=== PATIENT | female | born 1965 | race Caucasian/White ===

== ENCOUNTER 2018-06-14 21:18 | Inpatient (IN) | payer BC, OTHER ==
[~2018-06-14] VITALS: Ht 154.9 cm; Wt 73.1 kg
[~2018-06-14 21:18] MED LIST: ASPCH81; ATOR-22 PO; CPR500 PO; CRG125 PO; FRRS300 PO; HYDC25 PO; ISOS30TA3 PO; KETAMINE HCL INJ 50 MG/ML 10 ML VIAL IV ONE; LISI-461 PO; MIDAZOLAM HCL 5 MG/ML 2ML VIAL IV ONE; PHEN-876 PO; SUCCINYLCHOLINE CHLORIDE 20 MG/ML 10 ML VIAL IV ONE; XNX25 PO
[2018-06-14] MEDS ORDERED: SODIUM CHLORIDE 0.9% 1000ML 1,000 ML IV STA (21:24)
[2018-06-14] MEDS ORDERED: RAPID SEQUENCE INDUCTION BAG ONE (21:28)
[2018-06-14] MEDS ORDERED: PROPOFOL IV EMULSION 10 MG/ML 100 ML VIAL ONE (21:37)
--- NOTE | 2018-06-14 21:38 | DIAGNOSTIC IMAGING REPORT ---
CHEST ONE VIEW PORTABLE CLINICAL HISTORY: CODE BLUE dyspnea COMPARISON STUDY: No previous studies for comparison. FINDINGS: Pulmonary edema. Moderate cardiomegaly. Diaphragms are smooth. IMPRESSION: Pulmonary edema The above report was generated using voice recognition software. It may contain grammatical, syntax or spelling errors. Electronically signed by: Binu Momin M.D. 06/14/2018 9:36 PM Dictated Date/Time: 06/14/2018 9:36 PM
[2018-06-14] MEDS ORDERED: PROPOFOL IV EMULSION 10 MG/ML 100 ML VIAL IV STA (21:42)
[2018-06-14] MEDS ORDERED: FUROSEMIDE 40 MG/4 ML VIAL IV STA (21:44)
[2018-06-14 21:50] LABS: ISTAT CREATININE 1.4 mg/dl (0.6-1.3); ISTAT IONIZED CALCIUM 1.1 mmol/l (1.12-1.32)
[2018-06-14 21:54] LABS: HEMATOCRIT 52.4 % (37-47); HEMOGLOBIN 18.2 g/dL (12.0-16.0); MEAN CELL VOLUME 98.1 fL (80-100); MEAN CORPUSCULAR HEMOGLOBIN 34.1 pg (25-34); MEAN CORPUSCULAR HGB CONC 34.7 g/dl (32-36); MEAN PLATELET VOLUME 11.6 fL (7.4-10.4); PLATELET COUNT 220 K/uL (130-400); RED CELL DISTRIBUTION WIDTH CV 13.2 % (11.5-14.5); RED CELL DISTRIBUTION WIDTH SD 46.6 fL (36.4-46.3); WHITE BLOOD COUNT 12.66 K/uL (4.8-10.8)
--- NOTE | 2018-06-14 21:58 | DIAGNOSTIC IMAGING REPORT ---
CHEST ONE VIEW PORTABLE CLINICAL HISTORY: ett tube position COMPARISON STUDY: Same date and 20 2:00 PM FINDINGS: Endotracheal tube 3.7 cm above the cecelia. Findings of mildly progressive pulmonary edema. Moderate cardiomegaly. IMPRESSION: Endotracheal tube 3.7 cm above the cecelia. Progressive pulmonary edema. The above report was generated using voice recognition software. It may contain grammatical, syntax or spelling errors. Electronically signed by: Binu Momin M.D. 06/14/2018 9:57 PM Dictated Date/Time: 06/14/2018 9:56 PM
[2018-06-14] MEDS ORDERED: MULT-506 PO (22:01)
[2018-06-14] MEDS ORDERED: ATOR-24 PO (22:01)
[2018-06-14] MEDS ORDERED: GLC/500 PO (22:01)
[2018-06-14] MEDS ORDERED: LISI20TA3 PO (22:01)
[2018-06-14] MEDS ORDERED: HYDR25TA4 PO (22:01)
[2018-06-14] MEDS ORDERED: CARV25TA2 PO (22:01)
[2018-06-14] MEDS ORDERED: ASPI81TA28 PO (22:01)
[2018-06-14 22:03] LABS: PTT PATIENT 24.4 SECONDS (21.0-31.0)
[2018-06-14 22:17] LABS: BLOOD UREA NITROGEN 17 mg/dl (7-18); CREATININE 1.78 mg/dl (0.60-1.20); GLUCOSE 242 mg/dl (70-99)
[2018-06-14 22:18] LABS: ALBUMIN 4.2 gm/dl (3.4-5.0); ALKALINE PHOSPHATASE 85 U/L (45-117); ALT/SGPT 32 U/L (12-78); AST/SGOT 23 U/L (15-37); CALCIUM 8.9 mg/dl (8.5-10.1); CARBON DIOXIDE 20 mmol/L (21-32); CKMB < 1.0 ng/ml (0.5-3.6); POTASSIUM 4.1 mmol/L (3.5-5.1); SODIUM 140 mmol/L (136-145); TOTAL PROTEIN 8.2 gm/dl (6.4-8.2)
[2018-06-14] MEDS ORDERED: MIDAZOLAM HCL 1 MG/ML 2ML VIAL ONE (22:30)
--- NOTE | 2018-06-14 22:52 | Critical Care Consultation ---
Critical Care Consultation Date of Consultation: Jun 14, 2018. Attending Physician: Morgan BIRD Reason for Consultation: Acute hypoxic respiratory failure History of Present Illness History is obtained from emergency department physician, Dr. Spring, and the patient's . Patient is a 52-year-old female who has a significant past medical history for congestive heart failure first occurring back in 2004 as well as hypertension, reported history of ovarian cancer greater than 20 years ago without reported recurrence, diabetes controlled with metformin. She has not seen a medical and scientific illustrator in several years, she keeps her medical history rather private and occasionally follows up with her primary care physician who is recently retired. Patient was complaining of shortness of breath which began approximately 2 weeks ago this was an acute worsening in the last 24 hours, the patient's reports that she was unable to catch her breath and would sit in front of the air conditioning unit, the patient's daughters report that they feel she has gained weight and is somewhat edematous. In the emergency department the patient was extremely hypertensive and dyspneic , initial ABG showed a pH of 7.1 and a elevated's PCO2, patient required emergent intubation which was performed by the emergency department. Review of prior records include a echo cardiology result from April 27, 2009: Stage I diastolic dysfunction EF of 55-60%, +1 mitral regurgitation; echocardiogram from August 21, 2005 demonstrated a EF of 60% with mild concentric left ventricular hypertrophy Past Medical/Surgical History As noted above Family History Cancer FHx: diabetes mellitus Heart disease High blood pressure Seizures Social History Smoking Status: Never Smoker (As reported by ) Alcohol Use: none Drug Use: none Marital Status: Housing Status: lives with family Allergies Coded Allergies: No Known Allergies (Verified , 06/14/18) Home Medications Scheduled Aspirin (Aspirin Ec), 81 MG PO DAILY Atorvastatin (Lipitor), 40 MG PO DAILY Carvedilol (Coreg), 1 TAB PO BID Hydrochlorothiazide (Hctz), 25 MG PO DAILY Lisinopril (Prinivil), 20 MG PO BID Metformin Hcl (Glucophage), 500 MG PO BID Multivitamin (Multivitamin), 1 TAB PO DAILY Review of Systems Unable to obtain secondary to intubation Physical Exam Date Time Temp Pulse Resp B/P (MAP) Pulse Ox O2 Delivery O2 Flow Rate FiO2 06/14/18 22:46 47 20 98/52 96 Mechanical Ventilator 60 06/14/18 22:40 61 20 105/45 97 Mechanical Ventilator 60 06/14/18 22:38 83 20 86/55 97 Mechanical Ventilator 60 06/14/18 22:23 60 06/14/18 22:19 86 06/14/18 22:17 54 20 162/100 98 Mechanical Ventilator 100 06/14/18 21:50 100 06/14/18 21:35 70 Room Air 06/14/18 21:30 91 06/14/18 21:30 110 36 228/171 89 Non-Rebreather 15.0 06/14/18 21:26 120 06/14/18 21:20 Non-Rebreather 15.0 General Appearance: WD/WN, moderate distress Head: normocephalic, atraumatic Eyes: PERRLA ENT: other (Endotracheal tube present) Neck: no tenderness, trachea midline Respiratory: rales (Diffuse bilaterally) Cardiovasular: regular rate/rhythm, ectopy noted (Frequent) Abdomen: non tender, hypoactive bowel sounds Genitourinary - Female: external genitalia normal, other (Panchal catheter present) Upper Extremities: no edema Lower Extremities: edema Edema: Bilateral LE (1+) Pulses: radial (L) (2+), femoral (R) (2+) Neuro: other (Sedated on propofol) Laboratory Results Last 24 Hours Test 06/14/18 21:36 06/14/18 21:38 06/14/18 21:58 06/14/18 22:00 Bedside Hemoglobin 18.7 g/dl Bedside Hematocrit 55 % Bedside Sodium 143 mEq/L Bedside Potassium 5.0 mEq/L Bedside Chloride 112 mEq/L Bedside Total CO2 18 mEq/l Anion Gap 20.0 mmol/L 16.0 mmol/L Bedside Blood Urea Nitrogen 21 mg/dl Bedside Creatinine 1.4 mg/dl Bedside Glucose (other) 239 mg/dl Bedside Ionized Calcium (Marycruz) 1.10 mmol/l White Blood Count 12.66 K/uL Red Blood Count 5.34 M/uL Hemoglobin 18.2 g/dL Hematocrit 52.4 % Mean Corpuscular Volume 98.1 fL Mean Corpuscular Hemoglobin 34.1 pg Mean Corpuscular Hemoglobin Concent 34.7 g/dl Platelet Count 220 K/uL Mean Platelet Volume 11.6 fL RDW Standard Deviation 46.6 fL RDW Coefficient of Variation 13.2 % Prothrombin Time 10.1 SECONDS Prothromb Time International Ratio 1.0 Activated Partial Thromboplast Time 24.4 SECONDS Partial Thromboplastin Ratio 0.9 Venous Blood pH 7.10 Venous Blood Partial Pressure CO2 75 mmHg Venous Blood Partial Pressure O2 34 mmHg Venous Blood HCO3 23 mmol/L Venous Blood Oxygen Saturation < 60.0 % Venous Blood Base Excess -9.2 mEq/L Sodium Level 140 mmol/L Potassium Level 4.1 mmol/L Chloride Level 104 mmol/L Carbon Dioxide Level 20 mmol/L Blood Urea Nitrogen 17 mg/dl Creatinine 1.78 mg/dl Estimated GFR () 37.1 Estimated GFR (Non- 32.0 BUN/Creatinine Ratio 9.3 Random Glucose 242 mg/dl Calcium Level 8.9 mg/dl Total Bilirubin 0.9 mg/dl Direct Bilirubin 0.2 mg/dl Aspartate Amino Transf (AST/SGOT) 23 U/L Alanine Aminotransferase (ALT/SGPT) 32 U/L Alkaline Phosphatase 85 U/L Total Creatine Kinase 60 U/L Creatine Kinase MB < 1.0 ng/ml Creatine Kinase MB Ratio Troponin I 0.167 ng/ml Total Protein 8.2 gm/dl Albumin 4.2 gm/dl Lactic Acid Level 5.3 mmol/L Test 06/14/18 22:28 06/14/18 22:35 06/14/18 22:41 06/14/18 22:43 Diagnostic Results EKGs reviewed: They appear to be sinus rhythm with frequent ectopy is very difficult to evaluate ST segment changes but I do not see strong evidence of ST elevation, there may be aspects of ST depression in the lateral leads no previous for comparison I have reviewed the chest x-ray report as well as independently reviewed the images: An endotracheal tube is present and significant pulmonary edema is noted Assessment & Plan Reason Critically Ill: 52-year-old female with acute hypoxic hypercarbic respiratory failure, history CHF with elevated troponins PLAN: Neuro: Sedation and analgesia -Goal RASS -1- -2 -Fentanyl 100 mcg every 2 hours as needed pain -Versed 2 mg IV every 2 hours as needed agitation anxiety -Discontinue propofol as this is a cardiac depressant Resp: Acute hypoxic and hypercarbic respiratory failure -Likely secondary to acute on chronic congestive heart failure: Systolic and diastolic -Procalcitonin negative no strong evidence to suggest pneumonia at this time Acute respiratory acidosis -Improving -AC, tidal volume 450, rate 16 (patient breathing above) PEEP 10 -Wean FiO2 as tolerated CV: Cardiomyopathy Acute on chronic systolic and diastolic heart failure Elevated troponins Elevated proBNP -Formal echo pending Abnormal EKG with frequent ectopy -Optimize electrolytes -Start heparin infusion for possible ischemic component -Aspirin -High-dose statin Fluids/Renal: Aggressive diuresis -Goal 1-2 L negative Lactic acidosis -Repeat pending -Suspect metabolic demand secondary to decompensated congestive heart failure, doubt sepsis at this time Acute kidney injury -Elevated creatinine at 1.78, last creatinine in records December 15, 2012: 1.2 ID: Urinary tract infection based off a UA -Blood cultures pending -Urine culture pending -Procalcitonin negative: Unlikely sepsis likely local infection -Sputum culture ordered -No risk factors for Pseudomonas -Continue Rocephin GI/Nutrition: N.p.o. Heme: History of ovarian cancer greater than 10 years ago without reported recurrence -Heparin infusion for possible ischemic component of cardiomyopathy Leukocytosis -Unclear significance at this time, increase immature granulocytes which could be reflective of urinary tract infection also elevated lymphocytes Polycythemia -Unclear significance at this time Endocrine: Diabetes mellitus on metformin -Check A1c -ICU hyperglycemia protocol Vascular access: Peripheral IVs Code Status: Full I have consented the patient's for central venous access, arterial line , bronchoscopy, transvenous pacemaker, blood transfusion This is a life/limb threatening event. This includes time spent evaluating patient, direct bedside care, chart review, placing orders, interpretation of diagnostic studies, discussion with consultants, patient, and/or family members regarding treatment decisions, as well as other required patient management activities. This time is exclusive of all separately billable procedures, and teaching time and separate from and in addition to any other critical care service time. This chart is reflective of interrupted service periods on June 14, 2018 from 2250 until 2325 total critical care time for June 14, 2018: 35 minutes and June 15, 2018: 0045 until 0120 total critical care time 35 minutes
[2018-06-14 23:02] LABS: BASO % 0.4 %; BASO ABS # 0.05 K/uL (0-0.2); EOS % 2.5 %; EOS ABS # 0.32 K/uL (0-0.5); IG# 0.11 K/uL (0.00-0.02); LYMPH % 39.9 %; LYMPH ABS # 5.05 K/uL (1.2-3.4); MONO % 4.3 %; MONO ABS # 0.55 K/uL (0.11-0.59); NEUT ABS # 6.58 K/uL (1.4-6.5)
[2018-06-14] MEDS ORDERED: CEFTRIAXONE SOD INJ 1 GM ADDVIAL IV STA (23:05)
[2018-06-14] MEDS ORDERED: HYDROmorphone INJ 0.5 MG/0.5 ML SYR IV PRN (23:15)
[2018-06-14] MEDS ORDERED: PROCHLORPERAZINE INJ 5 MG in SYRINGE 4 ML IV PRN (23:15)
[2018-06-14] MEDS ORDERED: GLUCOSE 10 TABS/TUBE PO PRN (23:15)
[2018-06-14] MEDS ORDERED: GLUCOSE 40% GEL 15 GM TUBE PO PRN (23:15)
[2018-06-14] MEDS ORDERED: GLUCAGON FOR INJ 1 MG VIAL SQ PRN (23:15)
[2018-06-14] MEDS ORDERED: CARBOHYDRATES FOR HYPOGLYCEMIA PO PRN (23:15)
[2018-06-14] MEDS ORDERED: ICU PROTOCOL FOR HYPERGLYCEMIA PRN (23:15)
[2018-06-14] MEDS ORDERED: DEXTROSE 50% 50 ML SYR IV PRN (23:15)
--- NOTE | 2018-06-14 23:16 | EMERGENCY ROOM VISIT NOTE ---
History Report prepared by Servando: Kalie Medina Under the Supervision of: Dr. Mikey Spring D.O. 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 She was accompanied by her who notes his has had breathing problems for the past 2 weeks. He also notes she had imaging done recently with IV contrast but they are not aware of the results. She is not currently on any blood thinners and has no history of COPD. HPI and ROS limited due to the patient's respiratory failure. 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 HPI and ROS limited due to the patient's respiratory failure. Past Medical & Surgical Medical Problems: (1) Diabetes (2) High blood pressure (3) Respiratory failure, acute Family History Cancer FHx: diabetes mellitus Heart disease High blood pressure Seizures Social History Smokeless Tobacco Use: No Alcohol Use: none Marital Status: Housing Status: lives with significant other Occupation Status: employed Current/Historical Medications Scheduled Aspirin (Aspirin Ec), 81 MG PO DAILY Atorvastatin (Lipitor), 40 MG PO DAILY Carvedilol (Coreg), 1 TAB PO BID Hydrochlorothiazide (Hctz), 25 MG PO DAILY Lisinopril (Prinivil), 20 MG PO BID Metformin Hcl (Glucophage), 500 MG PO BID Multivitamin (Multivitamin), 1 TAB PO DAILY Allergies Coded Allergies: No Known Allergies (Verified , 06/14/18) Physical Exam Vital Signs Date Time Temp Pulse Resp B/P (MAP) Pulse Ox O2 Delivery O2 Flow Rate FiO2 06/14/18 22:46 47 20 98/52 96 Mechanical Ventilator 60 06/14/18 22:40 61 20 105/45 97 Mechanical Ventilator 60 06/14/18 22:38 83 20 86/55 97 Mechanical Ventilator 60 06/14/18 22:23 60 06/14/18 22:19 86 06/14/18 22:17 54 20 162/100 98 Mechanical Ventilator 100 06/14/18 22:03 72 22 172/128 99 Mechanical Ventilator 06/14/18 21:50 100 06/14/18 21:45 77 20 169/128 95 Mechanical Ventilator 100 06/14/18 21:35 70 Room Air 06/14/18 21:30 91 06/14/18 21:30 110 36 228/171 89 Non-Rebreather 15.0 06/14/18 21:26 120 06/14/18 21:20 Non-Rebreather 15.0 Physical Exam GENERAL: Laving on her right side. On NRB. Unable to have conversation. EYE EXAM: normal conjunctiva. PERRL and EOM's grossly intact. OROPHARYNX: mucous membranes are dry NECK: supple, no nuchal rigidity, no adenopathy, non-tender LUNGS: Clear to auscultation. Normal chest wall mechanics. Diffuse rhonchi bilaterally HEART: Tachycardic, no murmurs, S1 normal and S2 normal ABDOMEN: abdomen soft, non-tender, normo-active bowel sounds, no masses, no rebound or guarding. BACK: Back is symmetrical on inspection and there is no deformity, no midline tenderness, no CVA tenderness. SKIN: no rashes and no bruising UPPER EXTREMITIES: upper extremities are grossly normal. LOWER EXTREMITIES: Faint pitting edema bilaterally. NEURO EXAM: Normal sensorium, cranial nerves II-XII grossly intact, normal speech, no gross weakness of arms, no gross weakness of legs. Medical Decision & Procedures ER Provider Diagnostic Interpretation: Radiology results as stated below per my review and the radiologist's interpretation: CHEST ONE VIEW PORTABLE CLINICAL HISTORY: CODE BLUE dyspnea COMPARISON STUDY: No previous studies for comparison. FINDINGS: Pulmonary edema. Moderate cardiomegaly. Diaphragms are smooth. IMPRESSION: Pulmonary edema The above report was generated using voice recognition software. It may contain grammatical, syntax or spelling errors. Electronically signed by: Binu Momin M.D. 06/14/2018 9:36 PM CHEST ONE VIEW PORTABLE CLINICAL HISTORY: ett tube position COMPARISON STUDY: Same date and 20 2:00 PM FINDINGS: Endotracheal tube 3.7 cm above the cecelia. Findings of mildly progressive pulmonary edema. Moderate cardiomegaly. IMPRESSION: Endotracheal tube 3.7 cm above the cecelia. Progressive pulmonary edema. The above report was generated using voice recognition software. It may contain grammatical, syntax or spelling errors. Electronically signed by: Binu Momin M.D. 06/14/2018 9:57 PM Laboratory Results 06/14/18 21:38 Red Blood Count 5.34, Mean Corpuscular Volume 98.1, Mean Corpuscular Hemoglobin 34.1, Mean Corpuscular Hemoglobin Concent 34.7, Mean Platelet Volume 11.6 06/14/18 21:38 Test 06/14/18 21:36 06/14/18 21:38 06/14/18 22:00 06/14/18 22:28 Bedside Hemoglobin 18.7 g/dl (12.0-16.0) Bedside Hematocrit 55 % (37-47) Bedside Sodium 143 mEq/L (135-144) Bedside Potassium 5.0 mEq/L (3.3-5.0) Bedside Chloride 112 mEq/L (101-112) Bedside Total CO2 18 mEq/l (24-31) Bedside Blood Urea Nitrogen 21 mg/dl (7-18) Bedside Creatinine 1.4 mg/dl (0.6-1.3) Bedside Glucose (other) 239 mg/dl (70-99) Bedside Ionized Calcium (Marycruz) 1.10 mmol/l (1.12-1.32) White Blood Count 12.66 K/uL (4.8-10.8) Red Blood Count 5.34 M/uL (4.2-5.4) Hemoglobin 18.2 g/dL (12.0-16.0) Hematocrit 52.4 % (37-47) Mean Corpuscular Volume 98.1 fL (80-100) Mean Corpuscular Hemoglobin 34.1 pg (25-34) Mean Corpuscular Hemoglobin Concent 34.7 g/dl (32-36) Platelet Count 220 K/uL (130-400) Mean Platelet Volume 11.6 fL (7.4-10.4) RDW Standard Deviation 46.6 fL (36.4-46.3) RDW Coefficient of Variation 13.2 % (11.5-14.5) Prothrombin Time 10.1 SECONDS (9.0-12.0) Prothromb Time International Ratio 1.0 (0.9-1.1) Activated Partial Thromboplast Time 24.4 SECONDS (21.0-31.0) Partial Thromboplastin Ratio 0.9 Venous Blood pH 7.10 (7.36-7.41) Venous Blood Partial Pressure CO2 75 mmHg (38.0-50.0) Venous Blood Partial Pressure O2 34 mmHg Venous Blood HCO3 23 mmol/L Venous Blood Oxygen Saturation < 60.0 % Venous Blood Base Excess -9.2 mEq/L Anion Gap 16.0 mmol/L (3-11) Estimated GFR () 37.1 Estimated GFR (Non- 32.0 BUN/Creatinine Ratio 9.3 (10-20) Calcium Level 8.9 mg/dl (8.5-10.1) Total Bilirubin 0.9 mg/dl (0.2-1) Direct Bilirubin 0.2 mg/dl (0-0.2) Aspartate Amino Transf (AST/SGOT) 23 U/L (15-37) Alanine Aminotransferase (ALT/SGPT) 32 U/L (12-78) Alkaline Phosphatase 85 U/L (45-117) Total Creatine Kinase 60 U/L (26-192) Creatine Kinase MB < 1.0 ng/ml (0.5-3.6) Creatine Kinase MB Ratio (0-3.0) Total Protein 8.2 gm/dl (6.4-8.2) Albumin 4.2 gm/dl (3.4-5.0) Urine Color YELLOW Urine Appearance CLOUDY (CLEAR) Urine pH 5.0 (4.5-7.5) Urine Specific Happy 1.017 (1.000-1.030) Urine Protein 2+ (NEG) Urine Glucose (UA) NEG (NEG) Urine Ketones NEG (NEG) Urine Occult Blood 1+ (NEG) Urine Nitrite POS (NEG) Urine Bilirubin NEG (NEG) Urine Urobilinogen NEG (NEG) Urine Leukocyte Esterase SMALL (NEG) Test 06/14/18 22:35 06/14/18 22:41 06/14/18 22:43 Laboratory results per my review. Medications Administered Medications (Trade) Dose Ordered Sig/Gama Route Start Time Stop Time Status Last Admin Dose Admin Miscellaneous (Rapid Sequence Induction Bag) 1 ea STK-MED ONCE N/A 06/14/18 21:28 06/14/18 21:29 DC 06/14/18 21:28 1 EA Propofol (Diprivan Iv Emulsion 100ml Vial) 1 dose UD STAT IV 06/14/18 21:42 06/14/18 21:43 DC 06/14/18 22:06 1 DOSE Furosemide (Lasix Inj) 40 mg NOW STAT IV 06/14/18 21:44 06/14/18 21:45 DC 06/14/18 22:09 40 MG Midazolam HCl (Versed Inj) 2 mg STK-MED ONCE .ROUTE 06/14/18 22:30 06/14/18 22:31 DC 06/14/18 22:35 2 MG Procedure Endotracheal Intubation Indication Respiratory Failure. The patient was on 100% oxygen via NRB prior to the procedure. Suction, airway equipment, RSI drugs, respiratory equipment, and appropriate personnel were prepared prior to the initiation of the procedure. A time out was taken. Induction was performed with ketamine succ. After observing the clinical benefit of the medications, the airway was easily visualized utilizing a 3 GlideScope. A 7.5 size ETT tube was placed atraumatically to 22 cm using standard technique. The cuff inflated without signs of malfunction. There were bilateral breath sounds, positive colormetric change, no gastric sounds, a good capnography waveform, and post procedure pulse oximetry was 91%. Post intubation sedation and paralysis was administered using propofol. There were no complications. ECG Per My Interpretation Indication: SOB/dyspnea Rate (beats per minute): 107 Rhythm: sinus tachycardia (with bigeminy) Findings: LBBB, other (poor baseline) Change: Repeat EKG done at 2151 shows sinus rhythm in bigeminy, rate of 81, flipped T- Waves in the high lateral with ST depressions in the septal, anterior, and lateral, LBBB. Compared to EKG from 08/18/2005, all the changes are new. ED Course ED COURSE: Vital signs were reviewed and showed hypertensive, hypoxic, tachypneic. The patients medical record was reviewed The above diagnostic studies were performed and reviewed. ED treatments and interventions as stated above. 2121: The patient was evaluated in room B1. A complete history and physical examination was performed. 2127: Ordered Rapid Sequence Induction Bag 1 EA 2136: Ordered Propofol 1 dose IV 2143: Ordered Lasix Inj 40 mg IV 2199: Dr. Jeong, [facility] Hospitalist, was unable to pull up any recent echoes with the exception of 2008. Normal mitral valve, normal aortic valve. Systolic EF was 55%. 4: I reviewed the patient's case with Dr. Ahumada, Cardiology. 2226: I discussed the patient's case with Dr. Ga Woodward, Lecturer In Computer Science. 2229: I reviewed the patient's case with Dr. Reji Jeong, [facility] Hospitalist. He will evaluate the patient for further management. 2229: Ordered Midazolam HCl 2 mg IV 5: Upon reevaluation, the patient is still intubated. I discussed my findings with the patient's . He understands and agrees with the treatment plan. Based on the patients age, coexisting illnesses, exam and lab findings the decision to treat as an inpatient was made. The patient will be evaluated for further management. Medical Decision Differential diagnoses includes but is not limited to pneumonia, bronchitis, COPD/Asthma exacerbation, pneumothorax, pulmonary embolism, congestive heart failure, acute coronary syndrome. Patient is a 52-year-old female who presents to ER for severe shortness of breath. Patient was initially placed in A4 as it was the closest room and was placed on nonrebreather. She was unable to talk as she was so dyspneic. Pulse ox was in the 70s. On the nonrebreather she moved up to the low 80s. We immediately moved her to the trauma bay and placed on BiPAP. She still had mottling and was extremely hypertensive and dyspneic. Chest x-ray showed bilateral pulmonary edema. We elected to intubate her. CBC shows a mild leukocytosis. Hemoglobin is elevated at 18. Creatinine is 1.78. Troponins elevated at 0.167. Lactic acid is elevated as well at 5.3. ABG was initially obtained and showed a pH of 7.1. CO2 is elevated at 75. UA shows nitrates and leukocytes and consequently I did order IV Rocephin. INR was normal. I discussed the case with cardiology as the patient's notes that she had an echo performed this past Friday. Cardiology and the hospitalist were unable to obtain these results. EKG did show diffuse ST depressions with flipped T waves in the septal anterior and lateral leads. I do favor this is secondary to CHF which is also causing her HTN and EKG changes. She has a history of cardiomyopathy with a previous EF of 20% in 2004 per records. Last echo in 2008 showed an EF of 55% with mild LV she is diastolic dysfunction and mild mitral regurg. Unable to find any recent information. Patient per family appears to be noncompliant. Both dentist and hospitalist at bedside admitted the patient to the ICU. Propofol drip was managed at bedside and titrated and patient was given intermittent doses of Versed initially for agitation. Medication Reconcilliation Current Medication List: was personally reviewed by me Blood Pressure Screening Patient's blood pressure: Elevated blood pressure Hypertensive, hypoxic, tachypneic. Consults Time Called: 2204 Consulting Physician: Dr. Ahumada, Cardiology Returned Call: [phone] I reviewed the patient's case with Dr. Ahumada, Cardiology. Additional Consults: Time Called: 2219 Consulted Physician: Dr. Ga Woodward, Lecturer In Computer Science Returned Call: [phone] Additional Comments: I discussed the patient's case with Dr. Ga Woodward, Lecturer In Computer Science. Time Called: 2228 Consulted Physician: Dr. Reji Jeong, [facility] Hospitalist Returned Call: 2236 Additional Comments: I reviewed the patient's case with Dr. Reji Jeong, [facility] Hospitalist. He will evaluate the patient for further management. Impression Primary Impression: Respiratory failure Additional Impressions: CHF (congestive heart failure) Pulmonary edema Critical Care I have personally spent 75 minutes of critical care time in the direct management of this patient. This includes bedside care, interpretation of diagnostic studies, and testing, discussion with consultants, patient, and family members, and other required patient management activities. This 75 minutes is in excess of all separately billable procedures. Scribe Attestation The scribe's documentation has been prepared under my direction and personally reviewed by me in its entirety. I confirm that the note above accurately reflects all work, treatment, procedures, and medical decision making performed by me. Departure Information Dispostion Being Evaluated By Hospitalist (Dr. Reji Jeong, [facility] Hospitalist) Referrals Edmar Greene III, M.D. (PCP) Patient Instructions My [facility] Problem Qualifiers Primary Impression: Respiratory failure Chronicity: acute Respiratory failure complication: hypoxia and hypercapnia Qualified Codes: J96.01 - Acute respiratory failure with hypoxia; J96.02 - Acute respiratory failure with hypercapnia Additional Impressions: CHF (congestive heart failure) Heart failure type: unspecified Heart failure chronicity: acute Qualified Codes: I50.9 - Heart failure, unspecified Pulmonary edema Chronicity: acute Qualified Codes: J81.0 - Acute pulmonary edema
[2018-06-14] MEDS ORDERED: PROPOFOL IV EMULSION 10 MG/ML 100 ML VIAL IV SCH (23:30)
[2018-06-14] MEDS ORDERED: CEFEPIME CONSULT ACTIVE PRN (23:45)
[2018-06-15] VITALS (42 sets, daily range): BP systolic 107–199; BP diastolic 54–124; PULSE 35–94; TEMP 36.4–37; O2SAT 91–99; Ht 154.9 cm; Wt 73.1 kg
[2018-06-15] MEDS ORDERED: IPRATROPIUM BROMIDE HFA INHALER INH ONE
[2018-06-15] MEDS ORDERED: HEPARIN SOD 5000 UNIT/0.5 ML CARP SQ SCH
[2018-06-15] MEDS ORDERED: ALBUTEROL HFA 8 GM INHALER INH ONE
[2018-06-15] MEDS ORDERED: INSULIN GLARGINE SOLOSTAR 100 UNITS/ML 3 ML PEN SC ONE
[2018-06-15] MEDS ORDERED: INSULIN ASPART 100 UNITS/ML 3 ML PEN SC ONE
[2018-06-15] MEDS ORDERED: CEFEPIME IV 2,000 MG in SYRINGE 7.5 ML IV ONE (00:15)
--- NOTE | 2018-06-15 00:45 | Procedure Note ---
Procedure Note Date of Service Jun 14, 2018. Procedure Note Procedure: Limited Transthoracic Echocardiogram Indication: History cardiomyopathy, acute hypoxic respiratory failure, elevated troponins, frequent ventricular ectopy Date: June 14, 2018 Attending: Marco A Woodward DO Organs Examined: Heart Pericardial fluid: Absent Right ventricle size: Normal LV Contractility: Poor, likely wall motion abnormalities, ventricular size enlarged RV Contractility: Normal Mechanically ventilated breaths: Yes Hemodynamic Status: Blood pressure 140/90 heart rate 90 Impression: Findings suggestive of reduced ejection fraction with probable wall motion abnormalities Plan: [place] heparin for possible ischemic component Images obtained are saved for permanent record Critical Care Medicine Point of Care Bedside Ultrasound Procedure: Limited Bedside Renal Ultrasound Procedure Date: June 14, 2018 Indication: Acute kidney injury Attending: Marco A Woodward DO Organs Examined: kidneys, ureter, bladder. Right Kidney Kidney present: Yes Both Poles visualized: Yes Hydronephrosis: No Hepatorenal space fluid visualized: Negative Concern for Mass/Cyst: Approximately 1 cm cyst in upper pole of right kidney Left Kidney Kidney present: Yes Both Poles visualized: Yes Hydronephrosis: Negative Splenorenal space fluid visualized: Negative Concern for Mass/Cyst: No Bladder Panchal present: Yes Fluid in Bladder present: Absent Fluid in rectovesicle recesss: Absent Concern for Mass: Negative Ureteral Jets: Not visualized Impression: Probable right kidney cyst, no evidence of hydronephrosis bladder is decompressed secondary to Panchal catheter Images obtained are saved for permanent record Critical Care Medicine Point of Care Bedside Ultrasound Procedure: Limited Bedside Lung Ultrasound Procedure Date: June 14, 2018 Indication: Acute hypoxic respiratory failure Attending: Marco A Woodward DO Organs Examined: Lung BLUE point (upper), PLAPS point (posterior) A lines visualized: Present, Hemithorax: Right anterior B lines visualized: Present, Hemithorax: Bilaterally Lung Sliding: Present, Hemithorax: Bilaterally Tissue-like Sign: Absent, Hemithorax: Bilateral Shred Sign: Absent, Hemithorax: Bilateral Quad Sign: Present, Hemithorax: Right Type of effusions: Small simple pleural effusion, Hemithorax: Right hemithorax Interpleural distance: Not applicable Impression: Bilateral type B profile consistent with pulmonary edema and volume overload. Small right-sided pleural effusion Plan: Aggressive diuresis Images obtained are saved for permanent record Critical Care Medicine Point of Care Bedside Ultrasound Procedure: Limited Bedside Venous Duplex Procedure Date: June 14, 2018 Indication: Acute hypoxic respiratory failure, blue protocol, history of ovarian cancer Attending: Marco A Woodward DO Organs Examined: Femoral vein, tibial vein Right femoral vein compressible: Yes Right tibial vein compressible: Yes Thrombus present: Absent Left femoral vein compressible: Yes Left tibial vein compressible: Yes Thrombus present: Absent Impression: Negative limited two-point compression test for deep vein thrombus Images obtained are saved for permanent record
[2018-06-15] MEDS ORDERED: HEPARIN IV LOW DOSE NO BOLUS SCH (01:15)
[2018-06-15] MEDS ORDERED: THIAMINE HCL INJ 200 MG in SODIUM CHLORIDE 0.9% 50ML 50 ML IV STA (01:25)
[2018-06-15] MEDS ORDERED: MIDAZOLAM HCL 5 MG/ML 1 ML VIAL IV PRN (01:30)
[2018-06-15] MEDS ORDERED: MIDAZOLAM HCL 1 MG/ML 2ML VIAL IV STA (01:32)
--- NOTE | 2018-06-15 01:45 | HISTORY & PHYSICAL EXAMINATION ---
DATE OF ADMISSION: 06/14/2018 PRIMARY CARE DOCTOR: Dr. Greene. CHIEF COMPLAINT: Shortness of breath as per family. HISTORY OF PRESENT ILLNESS: History obtained from family, records. Unable to obtain history from patient secondary to intubated state. Medical history significant for hypertension, hyperlipidemia, history of dilated cardiomyopathy as per records, DM 2 on oral meds. Recent confinement in 2004 for chest pain. As per family, 2 weeks history of patient having cough symptoms, increasing shortness of breath. Daughter thinks it's from "fluids." Patient's daughter thinks the patient is retaining fluid. Blood pressure at home all over the place as per . Patient adjusts medication by self as per . No chest pain complaints. Had followup with PCP about 2 weeks ago. No concerns as per outpatient note. Follow up in 6 months. Patient brought by family to the ER because of worsening shortness of breath. Subsequently intubated for respiratory distress/failure. MEDICAL HISTORY: As above. As per outpatient records Recent 2D echo on file (2008), EF 55% to 60%, borderline LVH, diastolic dysfunction, mild MR. Last [facility] [place] [facility] [place] was [place]. As per note, Known of dilated cardiomyopathy attributed to uncontrolled blood pressure. Patient reluctant about recommended diagnostic cardiac catheterization to rule out CAD as etio of cardiomyopathy. OPERATIONS: She has had section, dental surgery. HOME MEDICATIONS: Include aspirin, Coreg, lisinopril, Glucophage, Lipitor, multivitamins. ALLERGIES: No known drug allergies. FAMILY HISTORY: Heart disease. 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 REVIEW OF SYSTEMS: Could not be obtained. PHYSICAL EXAMINATION: VITAL SIGNS: Blood pressure was noted to be 228/171, later 162/98; pulse rate 91; RR 36, later 20; temperature to be obtained. O2 sats 89 on 100% nonrebreather later 97% on 60% FIO2. GENERAL: Noted to be sedated and intubated. SKIN: Normal color, warm. HEENT: [place] palpebral conjunctivae, no ptosis, dry mucosa. NECK: Short neck, supple. CHEST: Bilateral expiratory wheezes, crackles noted. HEART: Regular rate and rhythm, systolic murmur. ABDOMEN: Some distention, nontender. EXTREMITIES: ivana edema, no tenderness. No other gross deformities. NEUROLOGIC: Sedated, pupills ERTL, no facial symmetry. LABORATORY DATA: Hemoglobin was noted to be 18.2, hematocrit 50.4, white cell count was noted to be 2.66, platelets 220. Sodium noted to be 140, potassium 4.1, chloride 104, CO2 of 20, BUN 70, creatinine 1.78, glucose 242. Venous blood gas, pH 7.10, pCO2 of 75. Troponin noted to be 0.167. Lactic acid 5.3. Chest x-ray showed pulmonary edema, cardiomegaly. EKG as per my interpretation, rate 80, NSR. LAD, LAFB, LBBB UA, WBC est, nitrite positive ASSESSMENT: 1. Acute hypoxemic failure secondary to decompensated heart failure possibly from uncontrolled blood pressure. History of cardiomyopathy attributed to uncontrolled hypertension as per outpatient records. Recent EF of 55% to 60% (outpatient TTE April 2009) No recent outpatient Cardio followup. 2. Respiratory acidosis secondary to above 3. acute renal failure secondary to illness. 4. DM2, on oral meds BSG currently elevated unknown baseline control. No recent hemoglobin A1c. 5. possible urinary tract infection, possible sepsis. PLAN: ICU vent management. Follow-up ABG Diuretic Rx. Strict IOs, daily weights. TTE, Cardiology consult RE CHF Monitor renal function with diuretic Rx. Hold lisinopril until creatinine at baseline. Follow urine cultures, IV Cefepime for now Basal insulin, ISS BG goal 140-180. May need IV insulin if uncontrolled. DVT prophylaxis, Heparin subQ. Full code. Total critical care time was 50 minutes. MTDD
[2018-06-15] MEDS ORDERED: HEPARIN 25,000 UNIT/500ML D5W 500 ML IV SCH (02:00)
[2018-06-15] MEDS: FENTANYL CITRATE INJ 50 MCG/1 ML 2 ML VIAL IV PRN ×2 (02:43→08:29)
[2018-06-15] MEDS: IPRATROPIUM BROMIDE HFA INHALER INH SCH ×2 (03:00→07:28)
[2018-06-15] MEDS: ALBUTEROL HFA 8 GM INHALER INH SCH ×2 (03:00→07:28)
[2018-06-15] MEDS ORDERED: NURSING VERBAL MED ORDER ONE ×3 (04:00→04:15)
[2018-06-15] MEDS ORDERED: METOPROLOL TARTRATE 1 MG/ML VIAL IV STA (04:01)
[2018-06-15] MEDS ORDERED: METOPROLOL TARTRATE 1 MG/ML VIAL IV PRN (04:15)
[2018-06-15] MEDS ORDERED: MIDAZOLAM BOLUS FROM BAG IV ONE (04:15)
[2018-06-15] MEDS ORDERED: MIDAZOLAM 125MG/250ML D5W 250 ML IV PRN (04:15)
[2018-06-15 04:31] LABS: BASO % 0.1 %; BASO ABS # 0.01 K/uL (0-0.2); EOS % 0.1 %; EOS ABS # 0.01 K/uL (0-0.5); HEMATOCRIT 44.9 % (37-47); IG# 0.07 K/uL (0.00-0.02); LYMPH % 8.7 %; LYMPH ABS # 1.04 K/uL (1.2-3.4); MEAN CELL VOLUME 95.1 fL (80-100); MEAN CORPUSCULAR HEMOGLOBIN 31.8 pg (25-34); MEAN CORPUSCULAR HGB CONC 33.4 g/dl (32-36); MEAN PLATELET VOLUME 11.3 fL (7.4-10.4); MONO % 4.2 %; MONO ABS # 0.51 K/uL (0.11-0.59); NEUT % 86.3 %; NEUT ABS # 10.38 K/uL (1.4-6.5); PLATELET COUNT 194 K/uL (130-400); RED CELL DISTRIBUTION WIDTH SD 44.4 fL (36.4-46.3); WHITE BLOOD COUNT 12.02 K/uL (4.8-10.8)
[2018-06-15 04:58] LABS: CALCIUM 8.2 mg/dl (8.5-10.1); CREATININE 1.4 mg/dl (0.60-1.20); POTASSIUM 3.8 mmol/L (3.5-5.1)
[2018-06-15 05:58] LABS: HEMOGLOBIN A1C 5.5 % (4.5-5.6)
[2018-06-15] MEDS ORDERED: PNEUMOCOCCAL POLYSACCHARIDES 25 MCG/0.5 ML VIAL/SYR IM. ONE (06:00)
[2018-06-15] MEDS: INSULIN ASPART 100 UNITS/ML 3 ML PEN SC SCH ×4 (06:00→21:00)
[2018-06-15] MEDS ORDERED: PNEUMOCOCCAL ADMINISTRATION CHARGE ONE (06:00)
[2018-06-15] MEDS: METOPROLOL TARTRATE 1 MG/ML VIAL IV. SCH ×2 (06:41→10:54)
[2018-06-15] MEDS ORDERED: PERFLUTREN LIPID MICROSPHERE (DEFINITY) IV ONE (08:00)
[2018-06-15] MEDS ORDERED: HEPARIN SOD (PORCINE) 1000 UNIT/ML 10 ML VIAL ONE (08:30)
[2018-06-15] MEDS ORDERED: MIDAZOLAM HCL 1 MG/ML 2ML VIAL ONE (08:30)
[2018-06-15] MEDS ORDERED: FENTANYL CITRATE INJ 50 MCG/1 ML 2 ML VIAL ONE (08:30)
[2018-06-15] MEDS ORDERED: NITROGLYCERIN/D5W 100MCG/ML 20ML SYR ONE (08:30)
[2018-06-15] MEDS ORDERED: NiCARDipine HCL INJ 2.5 MG/ML 10 ML AMP ONE (08:30)
--- NOTE | 2018-06-15 08:47 | DIAGNOSTIC IMAGING REPORT ---
CHEST ONE VIEW PORTABLE HISTORY: Heart alert, intubated COMPARISON: Chest 518. FINDINGS: The patient is slightly rotated on this study. No pneumothorax. Nasogastric tube terminates in the expected location of the stomach. The endotracheal tube terminates 2.9 cm from the cecelia. The heart remains mildly enlarged. Mild pulmonary basilar congestion has improved. Small bilateral pleural effusions and left basilar densities have progressed. IMPRESSION: 1. Satisfactory support line placement. 2. Significant improvement in the pulmonary edema. 3. Small bilateral pleural effusions and left basilar densities have progressed. Electronically signed by: Tucker Oneill M.D. 06/15/2018 8:46 AM Dictated Date/Time: 06/15/2018 8:45 AM
[2018-06-15 08:48] LABS: PTT PATIENT 33.6 SECONDS (21.0-31.0)
[2018-06-15] MEDS ORDERED: FUROSEMIDE INJ 60 MG in SYRINGE 0 ML IV SCH (09:00)
[2018-06-15] MEDS ORDERED: ASPIRIN 81 MG CHEW NG SCH (09:00)
[2018-06-15 09:53] LABS: HEP C IGG 13 YRS+OLDER_RFLX NEG (NEG)
[2018-06-15] MEDS ORDERED: MoRPHine SULFATE 2 MG/ML CARP IV PRN (10:00)
[2018-06-15] MEDS ORDERED: ATROPINE SULFATE 0.1 MG/ML 5ML SYR IV PRN (10:00)
[2018-06-15] MEDS ORDERED: NITROGLYCERIN 0.4 MG SL PER TAB CHARGE SL PRN (10:00)
[2018-06-15] MEDS ORDERED: SODIUM CHLORIDE 0.45% 1000ML 1,000 ML IV SCH (10:00)
[2018-06-15] MEDS ORDERED: CLOPIDOGREL BISULFATE 300 MG TAB PO STA (10:15)
--- NOTE | 2018-06-15 10:25 | CARDIAC CATH REPORT ---
REPORT OF CATHETERIZATION AND PERCUTANEOUS CORONARY INTERVENTION INDICATION: Elevated troponin, acute onset congestive heart failure by chest x-ray in a 52-year-old female, known history of hypertension, diabetes, hypercholesterolemia. PROCEDURES PERFORMED: Left heart catheterization, coronary cineangiography, PCI with drug-eluting stent x1, mid left anterior descending artery, radiological interpretation and supervision. 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 After local infiltration with 2% lidocaine, after failing access from the right groin, a 6-[place] sheath was placed in the left femoral vein. Sheath was aspirated and flushed. A 6-[place] JL4 guiding catheter was advanced over wire under fluoroscopic guidance to the central circulation where it was aspirated and flushed. After confirmation of adequate waveform, it was advanced into the left main and cineangiograms of left coronary artery obtained and viewed. Catheters were removed from the body over the wire, sheath was aspirated and flushed. A 6-[place] JR4 guide was advanced over wire under fluoroscopic guidance to the central circulation where it was aspirated and flushed. After confirmation of adequate waveforms, it was advanced into the right coronary artery and cineangiograms of the right groin obtained and reviewed. Catheters were removed from the body over the wire, sheath was aspirated and flushed. The reprepped 6-[place] JL4 guiding catheter was advanced over wire under fluoroscopic guidance to the central circulation where it was aspirated and flushed. After confirmation of adequate waveforms, it was advanced into the left main. A 0.014-inch private pilot wire was advanced through the guiding catheter across the area of stenosis to the apical LAD. A 2.5 Xience 8 stent was positioned in the mid LAD and inflated with maximum pressure of less than a minute. Balloon was withdrawn. Final cineangiograms were obtained with the wire removed from the coronary artery. Guiding catheter was removed from the left main under fluoroscopic guidance, removed from the body over wire and the sheath was aspirated and flushed. The right coronary catheter was used to cross the aortic valve in retrograde fashion. Left ventricular end diastolic pressure was measured. The catheter removed from the left ventricle to the aorta under continuous pressure monitoring. COMPLICATIONS: None. FINDINGS: Left main is normal. Left anterior descending artery is moderate in caliber with a focal mid 80% stenosis between 2 septal perforators. First diagonal branch is free of significant disease. Left circumflex, circumflex marginal and posterolateral branches are free of significant disease. The right coronary artery, the posterior descending artery, the posterior AV extension of the right coronary and posterolateral branches arising from it are all free of significant disease. Left ventricular end diastolic pressure is normal. No significant aortic valve gradient was demonstrated. Final cineangiograms demonstrate no residual stenosis, normal cut resection, COREY grade 3 flow in the LAD. IMPRESSION: Successful angioplasty, drug-eluting stent placement. RECOMMENDATIONS: Dual antiplatelet therapy per DAPT guidelines.
[2018-06-15] MEDS: FUROSEMIDE INJ 60 MG in SYRINGE 0 ML IV SCH ×2 (10:27→21:01)
[2018-06-15] MEDS: MULTIVITAMIN TAB NG SCH (10:28)
[2018-06-15] MEDS: ATORVASTATIN 40 MG TAB NG SCH (10:28)
[2018-06-15] MEDS: THIAMINE HCL INJ 200 MG in SODIUM CHLORIDE 0.9% 50ML 50 ML IV SCH (10:31)
[2018-06-15] MEDS ORDERED: METOPROLOL TARTRATE 1 MG/ML VIAL ONE (10:38)
[2018-06-15 10:55] LABS: CHOLESTEROL 221 mg/dl (0-200); LDL CHOLESTEROL (DIRECT) 166 mg/dl
--- NOTE | 2018-06-15 10:55 | ECHOCARDIOGRAM REPORT ---
*NOTICE TO RECEIVING [employer] This information is strictly Confidential and protected under [place] law. [place] law prohibits you from making any further disclosure of this information unless further disclosure is expressly permitted by the written consent of the person to whom it pertains or is authorized by law. A general authorization for the release of medical or other information is not sufficient for this purpose. Hospital accepts no responsibility if the information is made available to any other person, INCLUDING THE PATIENT. Interpretation Summary * Name: VERNA ISMS Study Date: 06/15/2018 06:56 AM BP: 61/191 mmHg * Patient Location: E103 HR: 70 * : 1965 (M/d/yyyy) Gender: Female Height: 61 in * Age: 52 yrs Ethnicity: CA Weight: 191 lb * Ordering Physician: Maxwell Jeong * Referring Physician: Self, Referred * Performed By: Serenity Webster RCS * * Reason For Study: CHF * BSA: 1.9 m2 * The study was technically limited. * There is no comparison study available. * -- Conclusions -- * Left ventricular systolic function is severely reduced. * Ejection Fraction = 25-30%. * There is moderate concentric left ventricular hypertrophy. * The septum is severely hypokinetic to akinetic with disynergistic wall motion. * The inferior wall is severely hypokinetic. * The remaining left ventricular myocardial wall segments are moderate to severely hypokinetic. * There is mild to moderate mitral regurgitation. Procedure Details * A complete two-dimensional transthoracic echocardiogram was performed (2D, M-mode, Doppler and color flow Doppler). * There were technical limitations due to patient'ssupine positioning while on mechanical ventilation * A contrast injection of Definity was performed to improve assessment of LV function. * A contrast injection of Definity was performed to improve assessment for apical thrombus. * Contrast was injected into an intravenous site in the right arm. * One vial of Definity ultrasound contrast was diluted in normal saline to a total volume of 10 ml. A total of '1' ml of solution was administered during imaging. * Lot # [id number] of Definity utilized for procedure. * Expiration date . * The attending nurse who injected the contrast agent was B. Clementina, RN. Left Ventricle * There is no thrombus. * There is moderate concentric left ventricular hypertrophy. * Ejection Fraction = 25-30%. * Left ventricular systolic function is severely reduced. * The septum is severely hypokinetic to akinetic with disynergistic wall motion. The inferior wall is severely hypokinetic. The remaining left ventricular myocardial wall segments are moderate to severely hypokinetic. Right Ventricle * The right ventricular cavity size is normal (basal dimension <4.2 cm in right ventricular apical 4-chamber view). * The right ventricular systolic function is normal. Atria * The left atrium is mildly dilated. * Right atrial size is normal. Mitral Valve * The mitral valve anatomy is normal. * There is no mitral valve stenosis. * There is mild to moderate mitral regurgitation. Tricuspid Valve * The tricuspid valve is not well visualized. * There is no tricuspid stenosis. * Significant tricuspid regurgitation is absent. Aortic Valve * The aortic valve is not well visualized. * No hemodynamically significant valvular aortic stenosis. * No aortic regurgitation is present. Pulmonic Valve * The pulmonic valve is not well visualized. Great Vessels * The aortic root and proximal ascending aorta are normal sized. Pericardium/Pleural * Small loculated anterior pericardial effusion. * There are no echocardiographic indications of cardiac tamponade. * Moderate size left pleural effusion. Left Ventricular Diastolic Function * Diastolic dysfunction, Grade II (pseudonormalization pattern). MMode 2D Measurements and Calculations IVSd 1.5 cm IVSs 1.6 cm LVIDd 4.5 cm LVIDs 4.4 cm LVPWd 1.5 cm LVPWs 1.6 cm IVS/LVPW 0.98 FS 3.3 % EDV(Teich) 94.5 ml ESV(Teich) 87.4 ml EF(Teich) 7.5 % EDV(cubed) 93.7 ml ESV(cubed) 84.8 ml EF(cubed) 9.5 % % IVS thick 9.5 % % LVPW thick 6.0 % LV mass(C)d 285.8 grams LV mass(C)dI 154.3 grams/m\S\2 LV mass(C)s 305.8 grams LV mass(C)sI 165.1 grams/m\S\2 SV(Teich) 7.1 ml SI(Teich) 3.8 ml/m\S\2 SV(cubed) 8.9 ml SI(cubed) 4.8 ml/m\S\2 Ao root diam 2.8 cm Ao root area 6.2 cm\S\2 ACS 1.3 cm LA dimension 4.0 cm asc Aorta Diam 2.8 cm LA/Ao 1.4 EDV(sp4-el) 76.0 ml ESV(sp4-el) 58.0 ml EF(sp4-el) 23.7 % EDV(sp2-el) 120.0 ml ESV(sp2-el) 84.0 ml EF(sp2-el) 30.0 % SV(sp4-el) 18.0 ml SI(sp4-el) 9.7 ml/m\S\2 SV(sp2-el) 36.0 ml SI(sp2-el) 19.4 ml/m\S\2 Doppler Measurements and Calculations MV E max jonathan 77.8 cm/sec MV A max jonathan 80.8 cm/sec MV E/A 0.96 MV P1/2t max jonathan 77.3 cm/sec MV P1/2t 138.7 msec MVA(P1/2t) 1.6 cm\S\2 MV dec slope 163.3 cm/sec\S\2 MV dec time 0.29 sec Ao V2 max 146.4 cm/sec Ao max PG 8.6 mmHg Ao max PG (full) 6.1 mmHg LV V1 max PG 2.5 mmHg LV V1 max 78.9 cm/sec PA V2 max 92.1 cm/sec PA max PG 3.4 mmHg TR max jonathan 105.3 cm/sec
[2018-06-15] MEDS ORDERED: PANTOprazole INJ 40 MG in SYRINGE 0 ML IV SCH (11:00)
[2018-06-15] MEDS ORDERED: CARVEDILOL 25 MG TAB PO ONE (12:00)
[2018-06-15] MEDS: NITROGLYCERIN 2% OINTMENT 30GM TUBE EXT SCH ×3 (12:22→23:51)
--- NOTE | 2018-06-15 13:18 | CARDIOLOGY CONSULTATION ---
DATE OF CONSULTATION: 06/15/2018 REFERRING PHYSICIAN: Dr. Maxwell Jeong. REASON FOR CONSULTATION: Congestive heart failure, hypertension, status post drug-eluting stent placement. CHIEF COMPLAINT ON ADMISSION: Respiratory distress. HISTORY OF PRESENT ILLNESS: A 52-year-old female presented to the Emergency Department with progressive shortness of breath approximately 2 weeks duration. History cannot be obtained from the patient as she is intubated. History is gleaned from the chart and at bedside as well as discussion with co-managing physicians. The patient carries a history of labile hypertension with a dilated cardiomyopathy, ejection fraction of 20% in the past. She was last evaluated by cardiology in 2008. Her most recent echocardiogram performed in 2008 demonstrated preserved LV systolic function with mild mitral regurgitation. Initially, the patient was found to be acidotic, hypoxic with pulmonary edema in the ER. She was intubated and admitted to the intensive care unit. EKG demonstrates left bundle-branch block with PVCs. She was treated with antihypertensive therapy, diuretic therapy overnight. A pH improved and the patient diuresed approximately 1.4 liters. Troponins trended up slightly to a peak of 0.419. Creatinine 1.78 on admission with a repeat creatinine this a.m. of 1.40. Oxygenation is significantly improved. The patient is currently on a CPAP trial and awake on the ventilator. She was taken to the cardiac catheterization lab earlier this morning due to her left bundle-branch block. A mid LAD stenosis was stented with a drug-eluting stent. Resting 2D transthoracic echocardiogram demonstrates ejection fraction of 25-30% with inferior and septal severe hypokinesis with dyssynergistic motion of the septum, likely consistent with underlying left bundle-branch block. Blood pressures remain elevated. The patient denies pain on ventilator. REVIEW OF SYSTEMS: Cannot be adequately assessed as the patient is vented; however, denies pain, chest pain, or discomfort currently. PAST MEDICAL HISTORY: 1. Longstanding labile hypertension. 2. Dilated cardiomyopathy with ejection fractions recorded as low as 20%. 3. Dyslipidemia. PAST SURGICAL HISTORY: 1. Cardiac catheterization. 2. Dental surgery. 3. delivery. FAMILY HISTORY: Negative for premature CAD or sudden cardiac in first degree relatives. SOCIAL HISTORY: Lifelong nonsmoker. No history of alcohol or illicit drug use. ALLERGIES: No known drug allergies. OUTPATIENT MEDICATIONS: 1. Atorvastatin 40 mg daily. 2. Carvedilol 25 mg twice daily. 3. Hydrochlorothiazide 25 mg daily. 4. Lisinopril 20 mg twice daily. 5. Metformin 500 mg 2 times daily. 6. Aspirin 81 mg daily. ECG ON ADMISSION: Sinus rhythm, left bundle-branch block, frequent PVCs as well as ventricular couplets. Repeat ECG performed at 0952 demonstrates sinus rhythm, left bundle-branch block, frequent and consecutive PVCs. LABORATORY DATA: Initial troponin at 0.167, repeat troponin 0.419. ProBNP 8324. Sodium 140, potassium 3.8, chloride 106, CO2 of 25, BUN is 19, creatinine is 1.40. Triglycerides 141, total cholesterol 221, LDL direct 166, HDL 43. Initial blood gas 7.10/75/34/23, no saturation recorded. Repeat ABG this a.m. 7.40/40/113/25/98% on 50% FIO2 on the ventilator. White blood cell count 12.02, hemoglobin 15.0, platelet count is 194. INR 1.0. Blood cultures negative, less than 24 hours. Telemetry demonstrates sinus rhythm, left bundle-branch block, PVCs. PHYSICAL EXAMINATION: VITAL SIGNS: Temperature 36.4 degrees centigrade, pulse is 72 beats per minute and regular, respiratory rate is 12 breaths per minute, blood pressure 177/105, SaO2 is 95% on the ventilator. GENERAL: NAD, awake on the ventilator. HEENT: Her mucous membranes are moist. ET tube and OG tube in place. NECK: Supple without carotid bruit. JVD cannot be adequately assessed due to ventilator. HEART: Regular with normal S1, S2. No murmur, rub or gallop heard. LUNGS: Demonstrate clear breath sounds anteriorly. No rhonchi or wheeze. ABDOMEN: Soft, nontender. No rebound or guarding. EXTREMITIES: Warm and dry without clubbing, cyanosis or edema. NEUROLOGIC: Could not be adequately assessed at this time. FINAL IMPRESSION: 1. A 52-year-old female admitted with acute decompensated systolic heart failure in the setting of hypertensive crisis. Clinically improving with diuretic therapy, although blood pressure remains elevated. 2. New left bundle-branch block with mildly elevated troponin, status post cardiac catheterization and drug-eluting stent to the mid LAD. 3. Cardiomyopathy with ejection fraction of 25-29%. 4. Acute renal insufficiency - improving. 5. Ventilator-dependent respiratory failure secondary to congestive heart failure. 6. Longstanding history of labile hypertensive and dilated nonischemic cardiomyopathy in the past. 7. Dyslipidemia. PLAN AND RECOMMENDATIONS: The patient is currently undergoing CPAP trial with possible extubation. Recommend restarting carvedilol 25 mg twice daily with first dose now. We will add topical nitrates for afterload reduction. Restart GILMA inhibitor when renal function stable. Utilize as-needed labetalol 10 mg for systolic blood pressure greater than 170 mmHg and diastolic blood pressure greater than 100 mmHg. Continue diuretic therapy with repeat basic metabolic panel in a.m. Dual antiplatelet therapy recommended for 1 year post-drug eluting stent implantation. Continue statin therapy as previously ordered. Thank you for allowing me to participate in the care of your patient.
--- NOTE | 2018-06-15 13:50 | Critical Care Progress Note ---
Critical Care Progress Note Date of Service Jun 15, 2018. Attending Dr. Christy Subjective The patient was intubated initially and sedated when I interviewed her, the patient was admitted to the hospital with pulmonary edema, she did have new onset left bundle branch block and ST elevation consistent with ST elevation CO. The patient was seen by Dr. Love and was taken to the [facility] where she underwent LAD, STEPHANIE placement. She did have 80% stenosis. The rest of her coronary arteries appeared patent. The patient was returned to the ICU in which she was successfully extubated afterward. Her pulmonary edema was resolved. When I interviewed her post extubation, she does have mild sore throat, understandably from intubation, she denies any chest pain, no shortness of breath, she continued to have occasional bigeminy, her blood pressure was 200/ 90 and she was started on antihypertensive medications including Capoten, Coreg , Nitropaste. She is tolerating orals, no near syncopal episodes, no blurry vision, no nausea. Objective Her physical exam today on 06/15/2018 showed blood pressure of 211/95 currently better controlled with antihypertensive medications, heart rate is 69 with occasional bigeminy, O2 saturation is 95% on nasal cannula, no JVP, no stridor, S1-S2 regular rate and rhythm, distant breath sounds with minimal crackles mainly at the bases, abdomen is benign, no edema, no pain in her calves. Her data showed elevated troponin, BNP was elevated, and BUN/creatinine has been elevated but stable. Chest x-ray has cleared significantly from pulmonary edema to almost minimal pulmonary vascular congestion. Assessment & Plan 1. Acute CO, new onset left bundle branch block, status post PCI with STEPHANIE 1 to the LAD. 2. History of hypertension. 3. Patient is nondiabetic, non-smoker, denies history of hyperlipidemia in the past, she does have strong family history for coronary artery disease. 4. History of ovarian cancer 20 years ago. 5. Cardiomyopathy. Plan: 1. Appreciate cardiology input including Dr. Zamarripa and Dr. Love. 2. Continue with Lasix 60 mg IV every 12 hours. 3. Continue with aspirin and Plavix. Patient already loaded. 4. Echocardiogram was done. 5. CPAP trial and proceed to extubation. Patient successfully extubated without difficulty. 6. Patient was given Lopressor every 6 hours however she started back again on Coreg. 7. Increase Capoten to 12.5 every 8 hours due to persistent hypertension. 8. Patient started on nitroglycerin paste. 9. Repeat blood pressure was systolic of 175, we will escalate the antihypertensive medication gradually. 10. Continue with Coreg 25 mg p.o. twice daily. Which is her home regimen. 11. Heparin drip was stopped, the patient will be started on heparin subcu only. 12. Start oral intake. 13. Stop fentanyl drip. 14. Stop Versed drip. 15. Change PPI to p.o. 16. AHA diet. 17. Discussed with cardiology, appreciate their input, discussed with the patient and her at the bedside, discussed with the staff and details. CCT was 45 minutes. Data Medications: Current Inpatient Medications Medications (Trade) Dose Ordered Sig/Gama Route Start Time Stop Time Status Last Admin Dose Admin Insulin Aspart (novoLOG ASPART) SLIDING SCALE If C... Q6 SC 06/15/18 06:00 07/15/18 05:59 Glucose (Glucose 40% Gel) 15-30 GRAMS 15 GRAMS... UD PRN PO 06/14/18 23:15 07/14/18 23:14 Glucose (Glucose Chew Tab) 4-8 Tablets 4 Tabl... UD PRN PO 06/14/18 23:15 07/14/18 23:14 Dextrose (Dextrose 50% 50ML Syringe) 25-50ML 25ML FOR ... UD PRN IV 06/14/18 23:15 07/14/18 23:14 Glucagon (Glucagon Inj) 1 mg UD PRN SQ 06/14/18 23:15 07/14/18 23:14 Carbohydrates (Carbohydrates For Hypoglycemia) 15-30 GRAMS 15 grams if BSG 54-69... UD PRN PO 06/14/18 23:15 07/14/18 23:14 Miscellaneous Information (Icu Protocol For Hyperglycemia) 1 ea PRN PRN N/A 06/14/18 23:15 06/16/18 23:14 Prochlorperazine Edisylate 5 mg/ Syringe 5 ml @ 5 mls/min Q6H PRN IV 06/14/18 23:15 07/14/18 23:14 06/15/18 03:43 5 MLS/MIN Atorvastatin Calcium (Lipitor Tab) 40 mg DAILY NG 06/15/18 09:00 07/15/18 08:59 06/15/18 10:28 40 MG Multivitamins (Multivitamin Tab) 1 tab DAILY NG 06/15/18 09:00 07/15/18 08:59 Furosemide 60 mg/ Syringe 6 ml @ 4 mls/min BID IV 06/15/18 09:00 06/16/18 08:59 06/15/18 10:27 4 MLS/MIN Ceftriaxone Sodium 1 gm/ Dextrose 50 ml @ 100 mls/hr Q24H IV 06/15/18 23:00 06/20/18 22:59 Thiamine HCl 200 mg/Sodium Chloride 52 ml @ 208 mls/hr QAM IV 06/15/18 09:00 06/17/18 09:14 06/15/18 10:31 208 MLS/HR Nitroglycerin (Nitrostat Tab) 0.4 mg UD PRN SL 06/15/18 10:00 07/15/18 09:59 Atropine Sulfate (Atropine Sulfate 0.1mg/ml Inj) 0.5 mg ONE PRN IV 06/15/18 10:00 07/15/18 09:59 Aspirin (Ecotrin Tab) 81 mg QAM PO 06/16/18 09:00 07/16/18 08:59 Clopidogrel Bisulfate (plAVix TAB) 75 mg QAM PO 06/16/18 09:00 07/16/18 08:59 Morphine Sulfate (MoRPHine SULFATE INJ) 2 mg Q5M PRN IV 06/15/18 10:00 06/29/18 09:59 Sodium Chloride 1,000 ml @ 50 mls/hr Q20H IV 06/15/18 10:00 06/15/18 17:59 06/15/18 10:28 50 MLS/HR Carvedilol (Coreg Tab) 25 mg BID PO 06/15/18 21:00 07/15/18 20:59 Nitroglycerin (Nitroglycerin 2% Oint) 1 inch Q6H EXT 06/15/18 12:00 07/15/18 11:59 06/15/18 12:22 1 INCH Captopril (Capoten Tab) 12.5 mg Q8 PO 06/15/18 14:00 07/15/18 13:59 Pantoprazole Sodium (Protonix Tab) 40 mg QAM PO 06/16/18 09:00 06/19/18 09:01 I & O: 24-Hour Column 06/16/18 08:00 Intake Total 184 ml Output Total 900 ml Balance -716 ml Vital Signs: Date Time Temp Pulse Resp B/P (MAP) Pulse Ox O2 Delivery O2 Flow Rate FiO2 06/15/18 12:32 72 20 172/115 (134) 94 Nasal Cannula 2.0 06/15/18 12:30 Nasal Cannula 2.0 06/15/18 12:02 68 14 199/109 (139) 93 Nasal Cannula 2.0 06/15/18 11:32 71 12 178/107 (130) 96 Mechanical Ventilator 06/15/18 11:17 70 12 180/120 (140) 99 Mechanical Ventilator 06/15/18 11:02 71 10 198/90 (126) 96 Mechanical Ventilator 06/15/18 10:54 72 177/105 06/15/18 10:47 61 12 177/105 (129) 95 Mechanical Ventilator 06/15/18 10:32 40 06/15/18 10:32 66 16 144/110 (121) 98 Mechanical Ventilator 06/15/18 10:17 68 16 180/80 (113) 97 Mechanical Ventilator 06/15/18 10:07 36.4 70 16 179/79 (112) 96 Mechanical Ventilator 50 06/15/18 10:00 50 06/15/18 09:37 63 16 157/101 (119) 96 Mechanical Ventilator 06/15/18 09:32 62 16 99/73 (82) 96 Mechanical Ventilator 06/15/18 08:57 80 06/15/18 08:01 67 16 148/89 (108) 99 Mechanical Ventilator 50 06/15/18 08:00 50 06/15/18 08:00 Mechanical Ventilator 50 06/15/18 08:00 Mechanical Ventilator 50 06/15/18 07:31 63 16 152/101 (118) 99 Mechanical Ventilator 50 06/15/18 07:28 50 06/15/18 07:01 64 16 151/95 (113) 98 Mechanical Ventilator 50 06/15/18 06:41 70 06/15/18 06:08 60 06/15/18 04:32 65 16 136/83 (100) 06/15/18 04:30 35 16 97 06/15/18 04:17 16 192/74 (113) 94 8/6/18 04:02 35 16 191/93 (125) 96 50 8/6/18 04:00 60 8/6/18 04:00 35 16 97 50 8/6/18 03:30 63 16 98 50 8/6/18 03:02 65 16 167/93 (117) 96 50 8/6/18 03:00 63 16 98 50 8/6/18 02:30 71 16 98 50 8/6/18 02:02 36 16 183/88 (119) 97 50 8/6/18 02:00 36 16 97 50 8/6/18 01:55 37 16 159/71 (100) 95 50 8/6/18 01:30 74 16 95 50 8/6/18 01:02 68 16 147/95 (112) 92 50 8/6/18 01:00 36.5 70 17 147/95 Mechanical Ventilator 50 8/6/18 01:00 70 16 94 50 8/6/18 00:30 45 16 95 50 8/6/18 00:25 60 8/6/18 00:24 39 16 107/54 (71) 96 50 8/6/18 00:02 83 16 164/124 (137) 97 50 8/6/18 00:00 94 16 174/123 (140) 95 50 8/5/18 23:35 60 8/5/18 23:21 76 20 140/80 97 Mechanical Ventilator 60 8/5/18 23:11 83 20 135/85 97 Mechanical Ventilator 60 8/5/18 22:56 76 20 121/53 97 Mechanical Ventilator 60 8/5/18 22:46 47 20 98/52 96 Mechanical Ventilator 60 8/5/18 22:40 61 20 105/45 97 Mechanical Ventilator 60 8/5/18 22:38 83 20 86/55 97 Mechanical Ventilator 60 8/5/18 22:23 60 8/5/18 22:19 86 8/5/18 22:17 54 20 162/100 98 Mechanical Ventilator 100 8/5/18 22:15 37.3 8/5/18 22:03 72 22 172/128 99 Mechanical Ventilator 8/5/18 21:50 100 8/5/18 21:45 77 20 169/128 95 Mechanical Ventilator 100 8/5/18 21:35 70 Room Air 8/18 21:30 91 8/5/18 21:30 110 36 228/171 89 Non-Rebreather 15.0 06/14/18 21:26 120 06/14/18 21:20 Non-Rebreather 15.0 Laboratory Results: Last 24 Hours Test 06/14/18 21:36 06/14/18 21:38 06/14/18 21:58 06/14/18 22:00 Bedside Hemoglobin 18.7 g/dl Bedside Hematocrit 55 % Bedside Sodium 143 mEq/L Bedside Potassium 5.0 mEq/L Bedside Chloride 112 mEq/L Bedside Total CO2 18 mEq/l Anion Gap 20.0 mmol/L 16.0 mmol/L Bedside Blood Urea Nitrogen 21 mg/dl Bedside Creatinine 1.4 mg/dl Bedside Glucose (other) 239 mg/dl Bedside Ionized Calcium (Mary[place]ruz) 1.10 mmol/l White Blood Count 12.66 K/uL Red Blood Count 5.34 M/uL Hemoglobin 18.2 g/dL Hematocrit 52.4 % Mean Corpuscular Volume 98.1 fL Mean Corpuscular Hemoglobin 34.1 pg Mean Corpuscular Hemoglobin Concent 34.7 g/dl Platelet Count 220 K/uL Mean Platelet Volume 11.6 fL Neutrophils (%) (Auto) 52.0 % Lymphocytes (%) (Auto) 39.9 % Monocytes (%) (Auto) 4.3 % Eosinophils (%) (Auto) 2.5 % Basophils (%) (Auto) 0.4 % Neutrophils # (Auto) 6.58 K/uL Lymphocytes # (Auto) 5.05 K/uL Monocytes # (Auto) 0.55 K/uL Eosinophils # (Auto) 0.32 K/uL Basophils # (Auto) 0.05 K/uL RDW Standard Deviation 46.6 fL RDW Coefficient of Variation 13.2 % Immature Granulocyte % (Auto) 0.9 % Immature Granulocyte # (Auto) 0.11 K/uL Prothrombin Time 10.1 SECONDS Prothromb Time International Ratio 1.0 Activated Partial Thromboplast Time 24.4 SECONDS Partial Thromboplastin Ratio 0.9 Venous Blood pH 7.10 Venous Blood Partial Pressure CO2 75 mmHg Venous Blood Partial Pressure O2 34 mmHg Venous Blood HCO3 23 mmol/L Venous Blood Oxygen Saturation < 60.0 % Venous Blood Base Excess -9.2 mEq/L Sodium Level 140 mmol/L Potassium Level 4.1 mmol/L Chloride Level 104 mmol/L Carbon Dioxide Level 20 mmol/L Blood Urea Nitrogen 17 mg/dl Creatinine 1.78 mg/dl Estimated GFR () 37.1 Estimated GFR (Non- 32.0 BUN/Creatinine Ratio 9.3 Random Glucose 242 mg/dl Calcium Level 8.9 mg/dl Total Bilirubin 0.9 mg/dl Direct Bilirubin 0.2 mg/dl Aspartate Amino Transf (AST/SGOT) 23 U/L Alanine Aminotransferase (ALT/SGPT) 32 U/L Alkaline Phosphatase 85 U/L Total Creatine Kinase 60 U/L Creatine Kinase MB < 1.0 ng/ml Creatine Kinase MB Ratio Troponin I 0.167 ng/ml Total Protein 8.2 gm/dl Albumin 4.2 gm/dl Lactic Acid Level 5.3 mmol/L Urine Color YELLOW Urine Appearance CLOUDY Urine pH 5.0 Urine Specific [place] 1.017 Urine Protein 2+ Urine Glucose (UA) NEG Urine Ketones NEG Urine Occult Blood 1+ Urine Nitrite POS Urine Bilirubin NEG Urine Urobilinogen NEG Urine Leukocyte Esterase SMALL Urine WBC (Auto) >30 /hpf Urine RBC (Auto) 5-10 /hpf Urine Hyaline Casts (Auto) 1-5 /lpf Urine Epithelial Cells (Auto) 20-30 /lpf Urine Bacteria (Auto) 4+ Urine Pathogenic Casts /lpf Test 06/14/18 23:03 06/15/18 00:06 06/15/18 00:15 06/15/18 04:15 Arterial Blood pH 7.28 Arterial Blood Partial Pressure CO2 48 mmHg Arterial Blood Partial Pressure O2 97 mm/Hg Arterial Blood HCO3 22 mmol/L Arterial Blood Oxygen Saturation 96.9 % Arterial Blood Base Excess -4.8 mEq/L Arterial Blood Gas Delivery 60% Crispin Test POS Estimated Average Glucose 111 mg/dl Hemoglobin A1c 5.5 % Magnesium Level 2.2 mg/dl Troponin I 0.229 ng/ml 0.419 ng/ml Pro-B-Type Natriuretic Peptide 8324 pg/ml Procalcitonin 0.05 ng/ml Thyroid Stimulating Hormone (TSH) 1.480 uIu/ml Lactic Acid Level 2.8 mmol/L Bedside Glucose 134 mg/dl White Blood Count 12.02 K/uL Red Blood Count 4.72 M/uL Hemoglobin 15.0 g/dL Hematocrit 44.9 % Mean Corpuscular Volume 95.1 fL Mean Corpuscular Hemoglobin 31.8 pg Mean Corpuscular Hemoglobin Concent 33.4 g/dl Platelet Count 194 K/uL Mean Platelet Volume 11.3 fL Neutrophils (%) (Auto) 86.3 % Lymphocytes (%) (Auto) 8.7 % Monocytes (%) (Auto) 4.2 % Eosinophils (%) (Auto) 0.1 % Basophils (%) (Auto) 0.1 % Neutrophils # (Auto) 10.38 K/uL Lymphocytes # (Auto) 1.04 K/uL Monocytes # (Auto) 0.51 K/uL Eosinophils # (Auto) 0.01 K/uL Basophils # (Auto) 0.01 K/uL RDW Standard Deviation 44.4 fL RDW Coefficient of Variation 13.0 % Immature Granulocyte % (Auto) 0.6 % Immature Granulocyte # (Auto) 0.07 K/uL Sodium Level 140 mmol/L Potassium Level 3.8 mmol/L Chloride Level 106 mmol/L Carbon Dioxide Level 25 mmol/L Anion Gap 9.0 mmol/L Blood Urea Nitrogen 19 mg/dl Creatinine 1.40 mg/dl Est Creatinine Clear Calc Drug Dose 45.6 ml/min Estimated GFR () 49.6 Estimated GFR (Non- 42.8 BUN/Creatinine Ratio 13.5 Random Glucose 173 mg/dl Calcium Level 8.2 mg/dl Test 06/15/18 05:51 06/15/18 06:34 06/15/18 08:27 06/15/18 08:28 Blood Gas Sample Site R Brachial Bedside Blood Gas pH (LAB) 7.40 Bedside Blood Gas pCO2 (LAB) 40 mmHg Bedside Blood Gas pO2 (LAB) 113 mmHg Bedside Blood Gas HCO3 (LAB) 25 meq/L Bedside Blood Gas Total CO2 26 mEq/l Bedside Blood Gas Base Excess (LAB) 0.0 meq/L Bedside Blood Gas O2 Saturation 98.0 % Crispin Test Pass Oxygen Delivery Device Ventilator Bedside Oxygen Rate (breaths/min) 16 Blood Gas Minute Ventilation 6.7 Bedside FiO2 50 % Blood Gas Tidal Volume 450 Blood Gas PEEP 10 Bedside Glucose 140 mg/dl Activated Partial Thromboplast Time 33.6 SECONDS Partial Thromboplastin Ratio 1.3 Hepatitis C Antibody Screen NEG Hepatitis C Antibody NEG Triglycerides Level 141 mg/dl Cholesterol Level 221 mg/dl HDL Cholesterol 43 mg/dl LDL Cholesterol Direct 166 mg/dl LDL Cholesterol, Calculated mg/dl VLDL Cholesterol, Calculated 28 mg/dl Cholesterol/HDL Ratio 5.1
[2018-06-15] MEDS ORDERED: CAPTOPRIL 12.5 MG TAB PO SCH (14:00)
[2018-06-15] MEDS: CAPTOPRIL 12.5 MG TAB PO SCH ×2 (14:10→21:44)
--- NOTE | 2018-06-15 15:47 | Progress Note ---
Internal Med Progress Note Date of Service: Jun 15, 2018. Provider Documentation: SUBJECTIVE: Patient is seen and examine bryon beside Had Cardiac Cath and STEPHANIE to LAD today Extubated today Currently not able to provide any history 2/2 meds from sedation Family at bedside OBJECTIVE: Vital Signs-as noted below Physical Exam: General Appearance:Moderately built and nourished, no apparent distress, + Drowsy from sedation Head: normocephalic, Atraumatic Eyes: normal inspection Neck: supple, Trachea midline Respiratory/Chest: Normal breath sounds, +Basal Crackles Cardiovascular: S1, S2, No murmur Abdomen/GI:Soft, Non tender, Bowel sounds present Extremities/Musculoskelatal:normal inspection, no edema Neurologic/Psych:Currently sedated, Could not perform complete neuro exam Skin: normal color, warm Lab data as noted below. ASSESSMENT & PLAN: Acute hypoxemic respiratory failure Acute AK Acute on chronic systolic heart failure Hypertensive Crisis New LBBB and elevation of Troponin CXR: Pulmonary edema, small B/L pleural effusion S/P Extubation S/P STEPHANIE to LAD Continue Aspirin, Plavix, Lipitor, Carvedilol, Nitrate Plan to restart GILMA when renal function is better Continue diuretics 60mg IV BID Monitor renal function, electrolytes Appreciate Critical Care/Cardiology Help Acute renal failure Monitor renal function while on IV diuretics Avoid Nephrotoxic agents as able H/O Diabetes A1C:5.5 Hold Metformin ISS for now Possible UTI: Continue Ceftriaxone FU Cultures Dyslipidemia: Continue statins DVT Px: Heparin subQ Code Status Full code Disposition: Monitor in ICU Vital Signs: Date Time Temp Pulse Resp B/P (MAP) Pulse Ox O2 Delivery O2 Flow Rate FiO2 06/15/18 15:02 63 15 156/102 (120) 95 Nasal Cannula 2.0 06/15/18 14:32 73 12 165/106 (125) 93 Nasal Cannula 2.0 06/15/18 14:01 74 20 141/114 (123) 92 Nasal Cannula 2.0 06/15/18 13:32 72 13 128/84 (99) 97 Nasal Cannula 2.0 06/15/18 13:02 69 15 170/98 (122) 96 Nasal Cannula 2.0 06/15/18 12:32 72 20 172/115 (134) 94 Nasal Cannula 2.0 06/15/18 12:30 Nasal Cannula 2.0 06/15/18 12:02 68 14 199/109 (139) 93 Nasal Cannula 2.0 818 11:32 71 12 178/107 (130) 96 Mechanical Ventilator 8/618 11:17 70 12 180/120 (140) 99 Mechanical Ventilator 818 11:02 71 10 198/90 (126) 96 Mechanical Ventilator 8/618 10:54 72 177/105 8/6/18 10:47 61 12 177/105 (129) 95 Mechanical Ventilator 818 10:32 40 8/618 10:32 66 16 144/110 (121) 98 Mechanical Ventilator 8618 10:17 68 16 180/80 (113) 97 Mechanical Ventilator 818 10:07 36.4 70 16 179/79 (112) 96 Mechanical Ventilator 50 18 10:00 50 8/18 09:37 63 16 157/101 (119) 96 Mechanical Ventilator 8 09:32 62 16 99/73 (82) 96 Mechanical Ventilator 06/15/18 08:57 80 8/18 08:01 67 16 148/89 (108) 99 Mechanical Ventilator 50 8618 08:00 50 8/6/18 08:00 Mechanical Ventilator 50 86/18 08:00 Mechanical Ventilator 50 818 07:31 63 16 152/101 (118) 99 Mechanical Ventilator 50 818 07:28 50 8/6/18 07:01 64 16 151/95 (113) 98 Mechanical Ventilator 50 818 06:41 70 8/18 06:08 60 818 04:32 65 16 136/83 (100) 18 04:30 35 16 97 8/6/18 04:17 16 192/74 (113) 94 8618 04:02 35 16 191/93 (125) 96 50 86/18 04:00 60 8/6/18 04:00 35 16 97 50 8/6/18 03:30 63 16 98 50 8/6/18 03:02 65 16 167/93 (117) 96 50 8/6/18 03:00 63 16 98 50 8/6/18 02:30 71 16 98 50 8/6/18 02:02 36 16 183/88 (119) 97 50 8/6/18 02:00 36 16 97 50 06/15/18 01:55 37 16 159/71 (100) 95 50 06/15/18 01:30 74 16 95 50 06/15/18 01:02 68 16 147/95 (112) 92 50 06/15/18 01:00 36.5 70 17 147/95 Mechanical Ventilator 50 06/15/18 01:00 70 16 94 50 06/15/18 00:30 45 16 95 50 06/15/18 00:25 60 06/15/18 00:24 39 16 107/54 (71) 96 50 06/15/18 00:02 83 16 164/124 (137) 97 50 06/15/18 00:00 94 16 174/123 (140) 95 50 06/14/18 23:35 60 06/14/18 23:21 76 20 140/80 97 Mechanical Ventilator 60 06/14/18 23:11 83 20 135/85 97 Mechanical Ventilator 60 06/14/18 22:56 76 20 121/53 97 Mechanical Ventilator 60 06/14/18 22:46 47 20 98/52 96 Mechanical Ventilator 60 06/14/18 22:40 61 20 105/45 97 Mechanical Ventilator 60 06/14/18 22:38 83 20 86/55 97 Mechanical Ventilator 60 06/14/18 22:23 60 06/14/18 22:19 86 06/14/18 22:17 54 20 162/100 98 Mechanical Ventilator 100 06/14/18 22:15 37.3 06/14/18 22:03 72 22 172/128 99 Mechanical Ventilator 06/14/18 21:50 100 06/14/18 21:45 77 20 169/128 95 Mechanical Ventilator 100 06/14/18 21:35 70 Room Air 06/14/18 21:30 91 06/14/18 21:30 110 36 228/171 89 Non-Rebreather 15.0 06/14/18 21:26 120 06/14/18 21:20 Non-Rebreather 15.0 Lab Results: Results Past 24 Hours Test 06/14/18 21:36 06/14/18 21:38 06/14/18 21:58 06/14/18 22:00 Range/Units Bedside Hemoglobin 18.7 12.0-16.0 g/dl Bedside Hematocrit 55 37-47 % Bedside Sodium 143 135-144 mEq/L Bedside Potassium 5.0 3.3-5.0 mEq/L Bedside Chloride 112 101-112 mEq/L Bedside Total CO2 18 24-31 mEq/l Anion Gap 20.0 16.0 3-11 mmol/L Bedside Blood Urea Nitrogen 21 7-18 mg/dl Bedside Creatinine 1.4 0.6-1.3 mg/dl Bedside Glucose (other) 239 70-99 mg/dl Bedside Ionized Calcium (Marycruz) 1.10 1.12-1.32 mmol/l White Blood Count 12.66 4.8-10.8 K/uL Red Blood Count 5.34 4.2-5.4 M/uL Hemoglobin 18.2 12.0-16.0 g/dL Hematocrit 52.4 37-47 % Mean Corpuscular Volume 98.1 80-100 fL Mean Corpuscular Hemoglobin 34.1 25-34 pg Mean Corpuscular Hemoglobin Concent 34.7 32-36 g/dl Platelet Count 220 130-400 K/uL Mean Platelet Volume 11.6 7.4-10.4 fL Neutrophils (%) (Auto) 52.0 % Lymphocytes (%) (Auto) 39.9 % Monocytes (%) (Auto) 4.3 % Eosinophils (%) (Auto) 2.5 % Basophils (%) (Auto) 0.4 % Neutrophils # (Auto) 6.58 1.4-6.5 K/uL Lymphocytes # (Auto) 5.05 1.2-3.4 K/uL Monocytes # (Auto) 0.55 0.11-0.59 K/uL Eosinophils # (Auto) 0.32 0-0.5 K/uL Basophils # (Auto) 0.05 0-0.2 K/uL RDW Standard Deviation 46.6 36.4-46.3 fL RDW Coefficient of Variation 13.2 11.5-14.5 % Immature Granulocyte % (Auto) 0.9 % Immature Granulocyte # (Auto) 0.11 0.00-0.02 K/uL Prothrombin Time 10.1 9.0-12.0 SECONDS Prothromb Time International Ratio 1.0 0.9-1.1 Activated Partial Thromboplast Time 24.4 21.0-31.0 SECONDS Partial Thromboplastin Ratio 0.9 Venous Blood pH 7.10 7.36-7.41 Venous Blood Partial Pressure CO2 75 38.0-50.0 mmHg Venous Blood Partial Pressure O2 34 mmHg Venous Blood HCO3 23 mmol/L Venous Blood Oxygen Saturation < 60.0 % Venous Blood Base Excess -9.2 mEq/L Sodium Level 140 136-145 mmol/L Potassium Level 4.1 3.5-5.1 mmol/L Chloride Level 104 98-107 mmol/L Carbon Dioxide Level 20 21-32 mmol/L Blood Urea Nitrogen 17 7-18 mg/dl Creatinine 1.78 0.60-1.20 mg/dl Estimated GFR () 37.1 Estimated GFR (Non- 32.0 BUN/Creatinine Ratio 9.3 10-20 Random Glucose 242 70-99 mg/dl Calcium Level 8.9 8.5-10.1 mg/dl Total Bilirubin 0.9 0.2-1 mg/dl Direct Bilirubin 0.2 0-0.2 mg/dl Aspartate Amino Transf (AST/SGOT) 23 15-37 U/L Alanine Aminotransferase (ALT/SGPT) 32 12-78 U/L Alkaline Phosphatase 85 45-117 U/L Total Creatine Kinase 60 26-192 U/L Creatine Kinase MB < 1.0 0.5-3.6 ng/ml Creatine Kinase MB Ratio 0-3.0 Troponin I 0.167 0-0.045 ng/ml Total Protein 8.2 6.4-8.2 gm/dl Albumin 4.2 3.4-5.0 gm/dl Lactic Acid Level 5.3 0.4-2.0 mmol/L Urine Color YELLOW Urine Appearance CLOUDY CLEAR Urine pH 5.0 4.5-7.5 Urine Specific [place] 1.017 1.000-1.030 Urine Protein 2+ NEG Urine Glucose (UA) NEG NEG Urine Ketones NEG NEG Urine Occult Blood 1+ NEG Urine Nitrite POS NEG Urine Bilirubin NEG NEG Urine Urobilinogen NEG NEG Urine Leukocyte Esterase SMALL NEG Urine WBC (Auto) >30 0-5 /hpf Urine RBC (Auto) 5-10 0-4 /hpf Urine Hyaline Casts (Auto) 1-5 0-5 /lpf Urine Epithelial Cells (Auto) 20-30 0-5 /lpf Urine Bacteria (Auto) 4+ NEG Urine Pathogenic Casts 0 /lpf Test 06/14/18 23:03 06/15/18 00:06 06/15/18 00:15 06/15/18 04:15 Range/Units Arterial Blood pH 7.28 7.35-7.45 Arterial Blood Partial Pressure CO2 48 35-46 mmHg Arterial Blood Partial Pressure O2 97 80-95 mm/Hg Arterial Blood HCO3 22 19-24 mmol/L Arterial Blood Oxygen Saturation 96.9 90-95 % Arterial Blood Base Excess -4.8 -9-1.8 mEq/L Arterial Blood Gas Delivery 60% Crispin Test POS POS Estimated Average Glucose 111 mg/dl Hemoglobin A1c 5.5 4.5-5.6 % Magnesium Level 2.2 1.8-2.4 mg/dl Troponin I 0.229 0.419 0-0.045 ng/ml Pro-B-Type Natriuretic Peptide 8324 0-900 pg/ml Procalcitonin 0.05 0-0.5 ng/ml Thyroid Stimulating Hormone (TSH) 1.480 0.300-4.500 uIu/ml Lactic Acid Level 2.8 0.4-2.0 mmol/L Bedside Glucose 134 70-90 mg/dl White Blood Count 12.02 4.8-10.8 K/uL Red Blood Count 4.72 4.2-5.4 M/uL Hemoglobin 15.0 12.0-16.0 g/dL Hematocrit 44.9 37-47 % Mean Corpuscular Volume 95.1 80-100 fL Mean Corpuscular Hemoglobin 31.8 25-34 pg Mean Corpuscular Hemoglobin Concent 33.4 32-36 g/dl Platelet Count 194 130-400 K/uL Mean Platelet Volume 11.3 7.4-10.4 fL Neutrophils (%) (Auto) 86.3 % Lymphocytes (%) (Auto) 8.7 % Monocytes (%) (Auto) 4.2 % Eosinophils (%) (Auto) 0.1 % Basophils (%) (Auto) 0.1 % Neutrophils # (Auto) 10.38 1.4-6.5 K/uL Lymphocytes # (Auto) 1.04 1.2-3.4 K/uL Monocytes # (Auto) 0.51 0.11-0.59 K/uL Eosinophils # (Auto) 0.01 0-0.5 K/uL Basophils # (Auto) 0.01 0-0.2 K/uL RDW Standard Deviation 44.4 36.4-46.3 fL RDW Coefficient of Variation 13.0 11.5-14.5 % Immature Granulocyte % (Auto) 0.6 % Immature Granulocyte # (Auto) 0.07 0.00-0.02 K/uL Sodium Level 140 136-145 mmol/L Potassium Level 3.8 3.5-5.1 mmol/L Chloride Level 106 98-107 mmol/L Carbon Dioxide Level 25 21-32 mmol/L Anion Gap 9.0 3-11 mmol/L Blood Urea Nitrogen 19 7-18 mg/dl Creatinine 1.40 0.60-1.20 mg/dl Est Creatinine Clear Calc Drug Dose 45.6 ml/min Estimated GFR () 49.6 Estimated GFR (Non- 42.8 BUN/Creatinine Ratio 13.5 10-20 Random Glucose 173 70-99 mg/dl Calcium Level 8.2 8.5-10.1 mg/dl Test 06/15/18 05:51 06/15/18 06:34 06/15/18 08:27 06/15/18 08:28 Range/Units Blood Gas Sample Site R Brachial Bedside Blood Gas pH (LAB) 7.40 7.35-7.45 Bedside Blood Gas pCO2 (LAB) 40 35-46 mmHg Bedside Blood Gas pO2 (LAB) 113 80-95 mmHg Bedside Blood Gas HCO3 (LAB) 25 19-24 meq/L Bedside Blood Gas Total CO2 26 24-31 mEq/l Bedside Blood Gas Base Excess (LAB) 0.0 -9-1.8 meq/L Bedside Blood Gas O2 Saturation 98.0 90-95 % Crispin Test Pass Oxygen Delivery Device Ventilator Bedside Oxygen Rate (breaths/min) 16 Blood Gas Minute Ventilation 6.7 Bedside FiO2 50 % Blood Gas Tidal Volume 450 Blood Gas PEEP 10 Bedside Glucose 140 70-90 mg/dl Activated Partial Thromboplast Time 33.6 21.0-31.0 SECONDS Partial Thromboplastin Ratio 1.3 Hepatitis C Antibody Screen NEG NEG Hepatitis C Antibody NEG NEG Triglycerides Level 141 0-150 mg/dl Cholesterol Level 221 0-200 mg/dl HDL Cholesterol 43 mg/dl LDL Cholesterol Direct 166 mg/dl LDL Cholesterol, Calculated mg/dl VLDL Cholesterol, Calculated 28 mg/dl Cholesterol/HDL Ratio 5.1 Test 06/15/18 09:16 06/15/18 09:32 Range/Units Kaolin Activated Coagulation Time 114 191 94-140 SECONDS Microbiology Results 06/14/18 Blood Culture, Received Pending 06/14/18 Blood Culture, Received Pending 06/15/18 MRSA DNA Surveillance Screen - Final, Complete Specimen Negative for MRSA by DNA Probe 06/15/18 Gram Stain, Received Pending 06/15/18 Sputum Culture, Received Pending 06/14/18 Urine Culture, Received Pending
[2018-06-15] MEDS: CARVEDILOL 25 MG TAB PO SCH (21:00)
[2018-06-15] MEDS ORDERED: INSULIN GLARGINE SOLOSTAR 100 UNITS/ML 3 ML PEN SC SCH (21:00)
[2018-06-15] MEDS: HEPARIN SOD 5000 UNIT/0.5 ML CARP SQ SCH (21:46)
[2018-06-15] MEDS ORDERED: CEFEPIME IV 2,000 MG in SYRINGE 7.5 ML IV SCH (23:00)
--- NOTE | 2018-06-15 23:01 | Critical Care Progress Note ---
Critical Care Progress Note Date of Service Jun 15, 2018. Critical Care Progress Note I was approached by nursing staff as the patient was having increasing oxygen requirements. At this point, she is up to 3 L nasal cannula. This is while at sleep. She was having frequent episodes of PVCs with bigeminy noted. On evaluation, the patient is sleeping comfortably. She does admit to heavy snoring while sleeping. She is unaware of any prior evaluation for sleep apnea. She was in agreement for trial of CPAP at night, particularly with recent severe pulmonary edema resulting in need for intubation. We will attempt to utilize CPAP for the positive pressure to help prevent return of pulmonary edema and decrease O2 requirements which may help with frequent ectopy while sleeping. I have personally spent 20 minutes of critical care time in the direct management of this patient. This is a life/limb threatening event. This includes time spent evaluating patient, direct bedside care, chart review, placing orders, interpretation of diagnostic studies, discussion with consultants, patient, and family members, as well as other required patient management activities. This time is exclusive of all separately billable procedures, and teaching time and separate from and in addition to any other critical care service time.
[2018-06-15] MEDS: CEFTRIAXONE SOD INJ 1 GM in DEXTROSE 5% ADD-VANTAGE 50ML 50 ML IV SCH (23:02)
[2018-06-16] VITALS (26 sets, daily range): BP systolic 91–191; BP diastolic 44–126; PULSE 59–88; TEMP 36.3–37.2; O2SAT 82–97
[2018-06-16 01:10] LABS: CALCIUM 8.1 mg/dl (8.5-10.1); CREATININE 1.71 mg/dl (0.60-1.20); POTASSIUM 3.1 mmol/L (3.5-5.1)
[2018-06-16] MEDS ORDERED: POTASSIUM CHLORIDE 20 MEQ TABCR PO STA (02:04)
[2018-06-16] MEDS: POTASSIUM CHLR 10 MEQ / WTR 100 ML IV SCH ×2 (02:18→04:06)
[2018-06-16] MEDS: NITROGLYCERIN 2% OINTMENT 30GM TUBE EXT SCH (06:06)
[2018-06-16] MEDS: CAPTOPRIL 12.5 MG TAB PO SCH (06:06)
[2018-06-16] MEDS: HEPARIN SOD 5000 UNIT/0.5 ML CARP SQ SCH ×3 (06:07→21:19)
[2018-06-16 06:14] LABS: HEMATOCRIT 39.5 % (37-47); HEMOGLOBIN 13.4 g/dL (12.0-16.0); MEAN CELL VOLUME 93.6 fL (80-100); MEAN CORPUSCULAR HEMOGLOBIN 31.8 pg (25-34); MEAN CORPUSCULAR HGB CONC 33.9 g/dl (32-36); MEAN PLATELET VOLUME 11.2 fL (7.4-10.4); PLATELET COUNT 180 K/uL (130-400); RED CELL DISTRIBUTION WIDTH CV 13.3 % (11.5-14.5); RED CELL DISTRIBUTION WIDTH SD 44.8 fL (36.4-46.3); WHITE BLOOD COUNT 13.19 K/uL (4.8-10.8)
[2018-06-16 06:49] LABS: CALCIUM 8.4 mg/dl (8.5-10.1); CREATININE 1.47 mg/dl (0.60-1.20); POTASSIUM 3.7 mmol/L (3.5-5.1)
[2018-06-16] MEDS: INSULIN ASPART 100 UNITS/ML 3 ML PEN SC SCH ×4 (08:03→21:00)
[2018-06-16] MEDS: ASPIRIN 81 MG ECTAB PO SCH (08:04)
[2018-06-16] MEDS: PANTOprazole SOD 40 MG TAB PO SCH (08:04)
[2018-06-16] MEDS: MULTIVITAMIN TAB NG SCH (08:04)
[2018-06-16] MEDS: CARVEDILOL 25 MG TAB PO SCH ×2 (08:05→21:19)
[2018-06-16] MEDS: ATORVASTATIN 40 MG TAB NG SCH (08:05)
[2018-06-16] MEDS: CLOPIDOGREL BISULFATE 75 MG TAB PO SCH (08:05)
[2018-06-16] MEDS: THIAMINE HCL INJ 200 MG in SODIUM CHLORIDE 0.9% 50ML 50 ML IV SCH (08:06)
[2018-06-16] MEDS ORDERED: LISINOPRIL 5 MG TAB PO SCH (09:00)
--- NOTE | 2018-06-16 09:01 | DIAGNOSTIC IMAGING REPORT ---
SINGLE VIEW CHEST CLINICAL HISTORY: Follow-up pulmonary edema. FINDINGS: An AP, portable, upright chest radiograph is compared to study dated 06/15/2018. The examination is degraded by portable technique and patient rotation. Endotracheal and enteric tubes have been removed . The heart is enlarged. The pulmonary vasculature is noncongested. Mild bibasilar atelectasis is observed. No airspace consolidation or large pleural effusion is identified. No pneumothorax is seen. The bony thorax is grossly intact. IMPRESSION: 1. Cardiomegaly without radiographic evidence of congestive failure. 2. No airspace consolidation or large pleural effusion is identified. 3. Endotracheal and enteric tubes have been removed from previous. Electronically signed by: Lb Sepulveda M.D. 06/16/2018 9:00 AM Dictated Date/Time: 06/16/2018 8:58 AM
[2018-06-16] MEDS: LISINOPRIL 20 MG TAB PO SCH ×2 (10:16→21:19)
--- NOTE | 2018-06-16 12:56 | Cardiology Follow-Up ---
Subjective General Date of Service: Jun 16, 2018. Pt evaluation today including: conversation w/ patient, conversation w/ family , physical exam, chart review, lab review, review of studies, review of inpatient medication list History of Present Illness The patient is a 52 year old female seen in follow-up. Extubated yesterday. Patient has no recollection of her hospitalization prior to extubation. Remembers feeling short of breath prior to coming to the emergency department. Denies any recent weight gain, orthopnea, paroxysmal nocturnal dyspnea. Denies any recent noncompliance with medical therapies. Today feeling well from a cardiovascular standpoint. Blood pressure improving. Topical nitrates have been removed. Tolerating dual antiplatelet therapy. No sustained dysrhythmias on telemetry. There is evidence of occasional premature ventricular complexes as well as ventricular bigeminy. Denies chest pain. Allergies Coded Allergies: No Known Allergies (Verified , 06/14/18) Social History Smoking Status: Never Smoker (As reported by ) Hx Alcohol Use - Type And Amou: No Hx Substance Use - Type And Am: No Problem List Medical Problems: (1) CHF (congestive heart failure) Status: Acute (2) Pulmonary edema Status: Acute (3) Respiratory failure Status: Acute Review of Systems Respiratory: + cough, No sputum, No wheezing, No shortness of breath, No dyspnea on exertion, No dyspnea at rest, No hemoptysis Cardiac: No chest pain, No orthopnea, No PND, No edema, No claudication, No palpitations Physical Exam Vital Signs Last Vital Signs Documentation Date Time Temp Pulse Resp B/P (MAP) Pulse Ox O2 Delivery O2 Flow Rate FiO2 06/16/18 12:00 73 24 120/67 (84) 94 Room Air 06/16/18 08:02 36.9 06/16/18 04:55 3.0 06/15/18 10:32 40 Physical Exam Constitutional: General Apperance: heathly-appearing Level of Distress: NAD Head: normocephalic, atraumatic ENMT: normal ENT inspection Neck: supple, trachea midline Lungs: Auscultation: no wheezing, no rales/crackles, no rhonchi Cardiovascular: Heart Auscultation: RRR, normal S1, normal S2, no murmurs Peripheral Pulses: Radial Pulse: normal on the right Abdomen: Bowel Sounds: normal Inspection & Palpation: soft, non-distended Extremities: no cyanosis, no edema, no clubbing, no ulcers Neurologic: Gait & Station: pertinent finding (No focal motor deficit.) Cranial Nerves: grossly intact Assessment and Plan Assessment and Plan FINAL IMPRESSION: 1. A 52-year-old female admitted with acute decompensated systolic heart failure in the setting of hypertensive emergency. Pulmonary edema has resolved per exam and chest x-ray. Diuretic therapy currently on hold. Creatinine trending downward. Respiratory status stable. 2. New left bundle-branch block with mildly elevated troponin, status post cardiac catheterization and drug-eluting stent to the mid LAD. 3. Cardiomyopathy with ejection fraction of 25-29%. 4. Acute renal insufficiency - improving. 5. S/P VDRF secondary to #1 6. Longstanding history of labile hypertensive and dilated nonischemic cardiomyopathy in the past. 7. Dyslipidemia. PLAN AND RECOMMENDATIONS: Hold further diuretic therapy today. Patient will likely require maintenance oral loop diuretic therapy going forward secondary to underlying cardiomyopathy , CHF, and labile hypertension. Previously retreated with hydrochlorothiazide. Will consider adding torsemide 5 mg daily in the a.m. tomorrow pending review of lab studies. Continue beta-juan carlos, GILMA inhibitor, aspirin, Plavix, and statin therapy. Laboratory Results Last 24 Hours Test 06/15/18 16:49 06/15/18 19:44 06/15/18 21:03 06/15/18 23:57 Bedside Glucose 107 mg/dl 114 mg/dl 132 mg/dl Troponin I 0.749 ng/ml Test 06/16/18 00:31 06/16/18 06:05 06/16/18 06:08 06/16/18 11:38 Sodium Level 138 mmol/L 135 mmol/L Potassium Level 3.1 mmol/L 3.7 mmol/L Chloride Level 100 mmol/L 102 mmol/L Carbon Dioxide Level 27 mmol/L 27 mmol/L Anion Gap 11.0 mmol/L 6.0 mmol/L Blood Urea Nitrogen 22 mg/dl 22 mg/dl Creatinine 1.71 mg/dl 1.47 mg/dl Est Creatinine Clear Calc Drug Dose 38.1 ml/min 41.2 ml/min Estimated GFR () 38.9 46.8 Estimated GFR (Non- 33.6 40.3 BUN/Creatinine Ratio 12.9 15.1 Random Glucose 120 mg/dl 120 mg/dl Calcium Level 8.1 mg/dl 8.4 mg/dl Magnesium Level 1.9 mg/dl 2.0 mg/dl White Blood Count 13.19 K/uL Red Blood Count 4.22 M/uL Hemoglobin 13.4 g/dL Hematocrit 39.5 % Mean Corpuscular Volume 93.6 fL Mean Corpuscular Hemoglobin 31.8 pg Mean Corpuscular Hemoglobin Concent 33.9 g/dl RDW Standard Deviation 44.8 fL RDW Coefficient of Variation 13.3 % Platelet Count 180 K/uL Mean Platelet Volume 11.2 fL Troponin I 3.550 ng/ml Bedside Glucose 128 mg/dl 108 mg/dl
--- NOTE | 2018-06-16 16:06 | Progress Note ---
Internal Med Progress Note Date of Service: Jun 16, 2018. Provider Documentation: SUBJECTIVE: Patient sitting up on the bed No complaint of chest pain, shortness of breath, dyspnea on exertion or dizziness Feels fine Tolerating diet No hypoxia, currently at room Report of desaturation overnight, CPAP ordered Patient mentioned he was recommended to use CPAP in the past never had a formal sleep study done OBJECTIVE: Vital Signs-as noted below Exam: General-no sign of distress, comfortable Eyes-sclera nonicteric, pupils bilateral equal reactive light extraocular muscle ENT-moist oral mucosa Neck-no JVD, no carotid bruit, neck supple, no thyromegaly, trachea midline Lungs-clear to auscultate, no wheeze or rales Heart-regular S1 and S2 no murmur Abdomen-soft nontender, no organomegaly, bowel sounds Extremities-no rash or deformity, no lower extremity Neuro-alert awake oriented 3, no focal neurological Psych-normal mood and affect, Lymph nodes-no lymphadenopathy Lab data as noted below. ASSESSMENT & PLAN: NON-ST ELEVATED VT -New left bundle branch block with mildly elevated troponin Status post emergent cardiac cath with drug-eluting stent to mid LAD -Patient is started on dual antiplatelet-aspirin and Plavix -Continue beta-juan carlos, nitrates, statin -will started on GILMA inhibitor once renal function improves to baseline -Echocardiogram -Cardiology following -Does not have established cardiology patient -Patient will need to follow-up with cardiology closely after discharge ACUTE HYPOXEMIC RESPIRATORY FAILURE Due to acute decompensated systolic heart failure in the setting of hypertensive urgency -Required mechanical intubation with ventilatory support -Respiratory status is baseline -Extubated yesterday -Remains in room air -Appreciate input from critical care and cardiology ACUTE CHF WITH SYSTOLIC DYSFUNCTION -History of ischemic cardiomyopathy with EF of 25-29% -Leading to acute respiratory failure with mechanical ventilation -Successful extubation post cardiac cath -Diuretics to be adjusted by cardiac -Continue to monitor volume status AK I on CKD stage III 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 antibiotics once sensitivities available CODE STATUS: Full code DVT PROPHYLAXIS Subcu heparin DISPOSITION Monitor in ICU overnight Possible transfer to telemetry tomorrow morning if appropriate by cardiology Expected to be discharged home when medically stable Referral made for cardiac rehab Need to established follow-up care with [facility] cardiology, patient is willing to follow-up with Dr. Mamadou Palacios Medicine follow-up with Dr. Greene at [facility] Vital Signs: Date Time Temp Pulse Resp B/P (MAP) Pulse Ox O2 Delivery O2 Flow Rate FiO2 06/17/18 15:16 36.7 60 20 145/92 (109) 96 Room Air 06/17/18 13:46 36.4 74 18 144/88 (106) 96 Room Air 06/17/18 13:26 Room Air 06/17/18 12:23 36.8 76 19 107/77 (87) 96 Room Air 06/17/18 10:30 36.7 69 19 127/73 (91) 96 Room Air 06/17/18 08:30 36.9 73 22 143/80 (101) 96 Room Air 06/17/18 08:00 Room Air 06/17/18 08:00 Room Air CPAP 06/17/18 07:02 73 17 141/95 (110) 93 Room Air 06/17/18 07:00 36.9 78 15 141/95 (110) 94 Room Air 06/17/18 06:46 86 21 137/106 (116) Room Air 06/17/18 06:06 61 13 167/107 (127) 95 Room Air 06/17/18 05:01 64 21 143/94 (110) 94 Room Air 06/17/18 04:50 74 24 139/91 (107) 95 Room Air 06/17/18 04:02 36.6 74 20 154/109 (124) 96 Room Air 06/17/18 03:01 52 8 98/76 (83) 90 Room Air 06/17/18 02:01 56 17 115/72 (86) 91 Room Air 06/17/18 01:02 50 21 104/50 (68) 86 Room Air 06/17/18 00:01 37.0 52 27 155/96 (115) 96 Room Air 06/16/18 23:01 59 23 139/99 (112) 94 Room Air 06/16/18 21:47 Room Air 06/16/18 21:29 74 22 170/92 (118) 96 Room Air 06/16/18 21:27 79 21 191/112 (138) 95 Room Air 06/16/18 21:01 85 28 160/122 (135) 94 Room Air 06/16/18 21:00 Room Air 06/16/18 20:18 76 25 163/126 (138) 95 Room Air 06/16/18 20:01 36.7 66 21 170/101 (124) 94 Room Air 06/16/18 19:00 74 25 166/102 (123) 97 Room Air Lab Results: Results Past 24 Hours Test 06/16/18 21:11 06/17/18 04:28 06/17/18 06:49 06/17/18 11:22 Range/Units Bedside Glucose 105 91 110 70-90 mg/dl White Blood Count 10.52 4.8-10.8 K/uL Red Blood Count 4.03 4.2-5.4 M/uL Hemoglobin 12.6 12.0-16.0 g/dL Hematocrit 38.3 37-47 % Mean Corpuscular Volume 95.0 80-100 fL Mean Corpuscular Hemoglobin 31.3 25-34 pg Mean Corpuscular Hemoglobin Concent 32.9 32-36 g/dl RDW Standard Deviation 45.6 36.4-46.3 fL RDW Coefficient of Variation 13.3 11.5-14.5 % Platelet Count 171 130-400 K/uL Mean Platelet Volume 11.5 7.4-10.4 fL Sodium Level 138 136-145 mmol/L Potassium Level 3.6 3.5-5.1 mmol/L Chloride Level 106 98-107 mmol/L Carbon Dioxide Level 25 21-32 mmol/L Anion Gap 7.0 3-11 mmol/L Blood Urea Nitrogen 24 7-18 mg/dl Creatinine 1.30 0.60-1.20 mg/dl Est Creatinine Clear Calc Drug Dose 46.5 ml/min Estimated GFR () 54.2 Estimated GFR (Non- 46.8 BUN/Creatinine Ratio 18.7 10-20 Random Glucose 96 70-99 mg/dl Calcium Level 8.5 8.5-10.1 mg/dl Magnesium Level 2.1 1.8-2.4 mg/dl Troponin I 4.910 0-0.045 ng/ml Test 06/17/18 16:27 06/17/18 18:06 Range/Units Bedside Glucose 113 70-90 mg/dl
[2018-06-16] MEDS ORDERED: ISOSORBIDE MONONITRATE 30 MG TABCR PO ONE (18:30)
--- NOTE | 2018-06-16 20:28 | Critical Care Progress Note ---
Critical Care Progress Note Date of Service Jun 16, 2018. Attending Dr. Christy Subjective Improving clinically, the patient did require BiPAP overnight, she did respond also to diuresis. Brief period Of shortness of breath. She is more ambulatory today and following commands and answering questions and asymptomatic from cardiac standpoint with no chest pain and no shortness of breath when I interviewed her. Objective Her physical exam today on 06/15/2018 showed blood pressure of 211/95 currently better controlled with antihypertensive medications, heart rate is 69 with occasional bigeminy, O2 saturation is 95% on nasal cannula, no JVP, no stridor, S1-S2 regular rate and rhythm, distant breath sounds with minimal crackles mainly at the bases, abdomen is benign, no edema, no pain in her calves. Her data showed elevated troponin, BNP was elevated, and BUN/creatinine has been elevated but stable. Chest x-ray has cleared significantly from pulmonary edema to almost minimal pulmonary vascular congestion. Physical exam on 06/16/2018 showed middle-aged female does not appear to be in any distress, no JVP, vital signs are stable, S1-S2 regular rate and rhythm, distant breath sounds with basilar crackles, abdomen is benign, trace edema in the periphery. Her laboratory also were reviewed as well as her chest x-ray which showed mild pulmonary vascular congestion. Assessment & Plan 1. Acute MS, new onset left bundle branch block, status post PCI with STEPHANIE 1 to the LAD. 2. History of hypertension. 3. Patient is nondiabetic, non-smoker, denies history of hyperlipidemia in the past, she does have strong family history for coronary artery disease. 4. History of ovarian cancer 20 years ago. 5. Cardiomyopathy with EF of 25%. Plan: 1. Appreciate cardiology input including Dr. Zamarripa and Dr. Love. 2. Continue with Lasix 60 mg IV every 12 hours. 3. Continue with aspirin and Plavix. Patient already loaded with Plavix. 4. Echocardiogram was done. EF of 25%. 5. The patient required the BiPAP overnight, likely she will need the BiPAP every night for life. She will need PSG done as an outpatient. 6. Continue with Coreg 25 twice daily. 7. Change Capoten to lisinopril 20 mg p.o. twice daily which she has been taken before.. 8. Add M door. 9. Continue with afterload and preload reduction. 10. Check with cardiology if the patient is a candidate for AICD. 11. Subcu heparin only. 12. Start oral intake. 13. Did not require any pain management. 14. Off sedation. 15. Change PPI to p.o. 16. AHA diet. 17. Hopefully to telemetry. 18. Discontinue Panchal catheter. Discussed with the staff on rounds and details. CCT was 45 minutes. Data Medications: Current Inpatient Medications Medications (Trade) Dose Ordered Sig/Gama Route Start Time Stop Time Status Last Admin Dose Admin Glucose (Glucose 40% Gel) 15-30 GRAMS 15 GRAMS... UD PRN PO 06/14/18 23:15 07/14/18 23:14 Glucose (Glucose Chew Tab) 4-8 Tablets 4 Tabl... UD PRN PO 06/14/18 23:15 07/14/18 23:14 Dextrose (Dextrose 50% 50ML Syringe) 25-50ML 25ML FOR ... UD PRN IV 06/14/18 23:15 07/14/18 23:14 Glucagon (Glucagon Inj) 1 mg UD PRN SQ 06/14/18 23:15 07/14/18 23:14 Carbohydrates (Carbohydrates For Hypoglycemia) 15-30 GRAMS 15 grams if BSG 54-69... UD PRN PO 06/14/18 23:15 07/14/18 23:14 Miscellaneous Information ([facility] Protocol For Hyperglycemia) 1 ea PRN PRN N/A 06/14/18 23:15 06/16/18 23:14 Prochlorperazine Edisylate 5 mg/ Syringe 5 ml @ 5 mls/min Q6H PRN IV 06/14/18 23:15 07/14/18 23:14 06/15/18 03:43 5 MLS/MIN Atorvastatin Calcium (Lipitor Tab) 40 mg DAILY NG 06/15/18 09:00 07/15/18 08:59 06/16/18 08:05 40 MG Multivitamins (Multivitamin Tab) 1 tab DAILY NG 06/15/18 09:00 07/15/18 08:59 06/16/18 08:04 1 TAB Ceftriaxone Sodium 1 gm/ Dextrose 50 ml @ 100 mls/hr Q24H IV 06/15/18 23:00 06/20/18 22:59 06/15/18 23:02 100 MLS/HR Nitroglycerin (Nitrostat Tab) 0.4 mg UD PRN SL 06/15/18 10:00 07/15/18 09:59 Atropine Sulfate (Atropine Sulfate 0.1mg/ml Inj) 0.5 mg ONE PRN IV 06/15/18 10:00 07/15/18 09:59 Aspirin (Ecotrin Tab) 81 mg QAM PO 06/16/18 09:00 07/16/18 08:59 06/16/18 08:04 81 MG Clopidogrel Bisulfate (plAVix TAB) 75 mg QAM PO 06/16/18 09:00 07/16/18 08:59 06/16/18 08:05 75 MG Morphine Sulfate (MoRPHine SULFATE INJ) 2 mg Q5M PRN IV 06/15/18 10:00 06/29/18 09:59 Carvedilol (Coreg Tab) 25 mg BID PO 06/15/18 21:00 07/15/18 20:59 06/16/18 08:05 25 MG Pantoprazole Sodium (Protonix Tab) 40 mg QAM PO 06/16/18 09:00 06/19/18 09:01 06/16/18 08:04 40 MG Heparin Sodium (Porcine) (Heparin Sq 5000 Unit/0.5ml) 5,000 unit Q8 SQ 06/15/18 22:00 07/15/18 21:59 06/16/18 13:56 5,000 UNIT Insulin Aspart (novoLOG ASPART) SLIDING SCALE If C... ACHS SC 06/15/18 21:00 07/15/18 05:59 06/16/18 16:55 2 UNITS Lisinopril (Zestril Tab) 20 mg BID PO 06/16/18 09:00 07/16/18 08:59 06/16/18 10:16 20 MG Isosorbide Mononitrate (Imdur Ext Rel Tab) 30 mg QAM PO 06/17/18 09:00 07/17/18 08:59 I & O: 24-Hour Column 06/17/18 08:00 Intake Total 640 ml Output Total 350 ml Balance 290 ml Vital Signs: Date Time Temp Pulse Resp B/P (MAP) Pulse Ox O2 Delivery O2 Flow Rate FiO2 06/16/18 19:00 74 25 166/102 (123) 97 Room Air 06/16/18 18:00 75 29 168/95 (119) 94 Room Air 06/16/18 17:00 72 26 155/93 (113) 82 Room Air 06/16/18 16:00 36.9 71 13 172/107 (128) 95 Room Air 06/16/18 15:00 73 23 157/106 (123) 93 Room Air 06/16/18 14:00 85 26 148/100 (116) 91 Room Air 06/16/18 13:00 73 15 97/62 (74) 91 Room Air 06/16/18 12:00 73 24 120/67 (84) 94 Room Air 06/16/18 11:00 67 19 156/90 (112) 94 Room Air 06/16/18 10:00 78 19 151/88 (109) 95 Room Air 06/16/18 09:00 71 14 148/79 (102) 92 Room Air 06/16/18 08:12 88 21 124/75 (91) 06/16/18 08:02 36.9 73 18 100/59 (73) 96 Room Air 06/16/18 08:00 Nasal Cannula 06/16/18 08:00 95 Room Air 06/16/18 06:00 73 21 163/113 (130) 93 Room Air 06/16/18 04:55 66 93 3.0 06/16/18 04:00 36.3 70 22 153/99 (117) 92 CPAP 3.0 06/16/18 02:02 68 91 3.0 06/16/18 02:00 67 16 91/60 (70) 90 CPAP 3.0 06/16/18 00:00 37.2 77 114/44 (67) 93 CPAP 3.0 06/15/18 23:15 82 96 3.0 06/15/18 22:00 82 27 91 Nasal Cannula 2.0 Laboratory Results: Last 24 Hours Test 06/15/18 21:03 06/15/18 23:57 06/16/18 00:31 06/16/18 06:05 Bedside Glucose 114 mg/dl 132 mg/dl Sodium Level 138 mmol/L 135 mmol/L Potassium Level 3.1 mmol/L 3.7 mmol/L Chloride Level 100 mmol/L 102 mmol/L Carbon Dioxide Level 27 mmol/L 27 mmol/L Anion Gap 11.0 mmol/L 6.0 mmol/L Blood Urea Nitrogen 22 mg/dl 22 mg/dl Creatinine 1.71 mg/dl 1.47 mg/dl Est Creatinine Clear Calc Drug Dose 38.1 ml/min 41.2 ml/min Estimated GFR () 38.9 46.8 Estimated GFR (Non- 33.6 40.3 BUN/Creatinine Ratio 12.9 15.1 Random Glucose 120 mg/dl 120 mg/dl Calcium Level 8.1 mg/dl 8.4 mg/dl Magnesium Level 1.9 mg/dl 2.0 mg/dl White Blood Count 13.19 K/uL Red Blood Count 4.22 M/uL Hemoglobin 13.4 g/dL Hematocrit 39.5 % Mean Corpuscular Volume 93.6 fL Mean Corpuscular Hemoglobin 31.8 pg Mean Corpuscular Hemoglobin Concent 33.9 g/dl RDW Standard Deviation 44.8 fL RDW Coefficient of Variation 13.3 % Platelet Count 180 K/uL Mean Platelet Volume 11.2 fL Troponin I 3.550 ng/ml Test 06/16/18 06:08 06/16/18 11:38 06/16/18 16:38 Bedside Glucose 128 mg/dl 108 mg/dl 97 mg/dl
[2018-06-16] MEDS: CEFTRIAXONE SOD INJ 1 GM in DEXTROSE 5% ADD-VANTAGE 50ML 50 ML IV SCH (23:28)
[2018-06-17] VITALS (19 sets, daily range): BP systolic 98–167; BP diastolic 50–109; PULSE 50–86; TEMP 36.4–37; O2SAT 86–99
[2018-06-17 05:01] LABS: HEMATOCRIT 38.3 % (37-47); HEMOGLOBIN 12.6 g/dL (12.0-16.0); MEAN CORPUSCULAR HEMOGLOBIN 31.3 pg (25-34); MEAN CORPUSCULAR HGB CONC 32.9 g/dl (32-36); MEAN PLATELET VOLUME 11.5 fL (7.4-10.4); PLATELET COUNT 171 K/uL (130-400); RED CELL DISTRIBUTION WIDTH CV 13.3 % (11.5-14.5); RED CELL DISTRIBUTION WIDTH SD 45.6 fL (36.4-46.3); WHITE BLOOD COUNT 10.52 K/uL (4.8-10.8)
[2018-06-17 05:25] LABS: CALCIUM 8.5 mg/dl (8.5-10.1); CREATININE 1.3 mg/dl (0.60-1.20); POTASSIUM 3.6 mmol/L (3.5-5.1)
[2018-06-17] MEDS: HEPARIN SOD 5000 UNIT/0.5 ML CARP SQ SCH ×3 (05:54→20:32)
[2018-06-17] MEDS: INSULIN ASPART 100 UNITS/ML 3 ML PEN SC SCH ×4 (07:44→20:32)
[2018-06-17] MEDS: ISOSORBIDE MONONITRATE 30 MG TABCR PO SCH (07:48)
[2018-06-17] MEDS: MULTIVITAMIN TAB NG SCH (07:48)
[2018-06-17] MEDS: CLOPIDOGREL BISULFATE 75 MG TAB PO SCH (07:48)
[2018-06-17] MEDS: ATORVASTATIN 40 MG TAB NG SCH (07:48)
[2018-06-17] MEDS: PANTOprazole SOD 40 MG TAB PO SCH (07:48)
[2018-06-17] MEDS: LISINOPRIL 20 MG TAB PO SCH ×2 (07:49→19:44)
[2018-06-17] MEDS: CARVEDILOL 25 MG TAB PO SCH ×2 (07:49→19:44)
[2018-06-17] MEDS: ASPIRIN 81 MG ECTAB PO SCH (08:02)
[2018-06-17] MEDS: CEPHALEXIN MONOHYDRATE 500 MG CAP PO SCH ×2 (09:08→19:44)
[2018-06-17] MEDS: FUROSEMIDE 40 MG TAB PO SCH (09:09)
[2018-06-17] MEDS: POTASSIUM CHLORIDE 20 MEQ TABCR PO SCH (09:09)
--- NOTE | 2018-06-17 12:54 | Cardiology Follow-Up ---
Subjective General Date of Service: Jun 17, 2018. Pt evaluation today including: conversation w/ patient, conversation w/ family , physical exam, chart review, lab review, review of studies, review of inpatient medication list History of Present Illness The patient is a 52 year old female seen in follow-up. Feeling well from a cardiovascular perspective. Denies chest pain or shortness of breath. Pressure improved. Allergies Coded Allergies: No Known Allergies (Verified , 06/14/18) Social History Smoking Status: Never Smoker (As reported by ) Hx Alcohol Use - Type And Amou: No Hx Substance Use - Type And Am: No Problem List Medical Problems: (1) CHF (congestive heart failure) Status: Acute (2) Pulmonary edema Status: Acute (3) Respiratory failure Status: Acute Review of Systems Respiratory: No cough, No sputum, No wheezing, No shortness of breath, No dyspnea at rest, No hemoptysis Cardiac: No chest pain, No orthopnea, No PND, No edema, No claudication, No palpitations Physical Exam Vital Signs Last Vital Signs Documentation Date Time Temp Pulse Resp B/P (MAP) Pulse Ox O2 Delivery O2 Flow Rate FiO2 06/17/18 12:23 36.8 76 19 107/77 (87) 96 Room Air 06/16/18 04:55 3.0 06/15/18 10:32 40 Physical Exam Constitutional: General Apperance: heathly-appearing Level of Distress: NAD Head: normocephalic, atraumatic ENMT: normal ENT inspection Neck: supple, trachea midline Lungs: Auscultation: no wheezing, no rales/crackles, no rhonchi Cardiovascular: Heart Auscultation: RRR, normal S1, normal S2, no murmurs Peripheral Pulses: Radial Pulse: normal on the right Abdomen: Bowel Sounds: normal Inspection & Palpation: soft, non-distended Extremities: no cyanosis, no edema, no clubbing, no ulcers Neurologic: Gait & Station: pertinent finding (No focal motor deficit.) Cranial Nerves: grossly intact Assessment and Plan Assessment and Plan FINAL IMPRESSION: 1. A 52-year-old female admitted with acute decompensated systolic heart failure in the setting of hypertensive emergency. Pulmonary edema has resolved per exam and chest x-ray. Diuretic therapy currently on hold. Creatinine trending downward. Respiratory status stable. 2. New left bundle-branch block status post cardiac catheterization and drug- eluting stent to the mid LAD. 3. Cardiomyopathy with ejection fraction of 25-29%. 4. Acute renal insufficiency - improving. 5. S/P VDRF secondary to #1 6. Longstanding history of labile hypertensive and dilated nonischemic cardiomyopathy in the past. 7. Dyslipidemia. PLAN AND RECOMMENDATIONS: Continue evidence-based heart failure therapy with carvedilol, and GILMA inhibitor. We will consider adding Aldactone pending review of a.m. lab studies. Patient currently without angina. Continue Lasix 40 mg daily. Repeat basic metabolic panel in a.m. Continue dual antiplatelet therapy uninterrupted for a minimum of 1 year post percutaneous intervention. I have ordered a "lifevest" which patient which will wear for 3 months with repeat evaluation of LV systolic function and consideration for ICD in the future. Patient may be transferred to the progressive care unit at this time. Laboratory Results Last 24 Hours Test 06/16/18 16:38 06/16/18 21:11 06/17/18 04:28 06/17/18 06:49 Bedside Glucose 97 mg/dl 105 mg/dl 91 mg/dl White Blood Count 10.52 K/uL Red Blood Count 4.03 M/uL Hemoglobin 12.6 g/dL Hematocrit 38.3 % Mean Corpuscular Volume 95.0 fL Mean Corpuscular Hemoglobin 31.3 pg Mean Corpuscular Hemoglobin Concent 32.9 g/dl RDW Standard Deviation 45.6 fL RDW Coefficient of Variation 13.3 % Platelet Count 171 K/uL Mean Platelet Volume 11.5 fL Sodium Level 138 mmol/L Potassium Level 3.6 mmol/L Chloride Level 106 mmol/L Carbon Dioxide Level 25 mmol/L Anion Gap 7.0 mmol/L Blood Urea Nitrogen 24 mg/dl Creatinine 1.30 mg/dl Est Creatinine Clear Calc Drug Dose 46.5 ml/min Estimated GFR () 54.2 Estimated GFR (Non- 46.8 BUN/Creatinine Ratio 18.7 Random Glucose 96 mg/dl Calcium Level 8.5 mg/dl Magnesium Level 2.1 mg/dl Troponin I 4.910 ng/ml Test 06/17/18 11:22 Bedside Glucose 110 mg/dl
--- NOTE | 2018-06-17 15:12 | Critical Care Progress Note ---
Critical Care Progress Note Date of Service Jun 17, 2018. Attending Dr. Christy Subjective No events occurred overnight, the patient underwent overnight pulse oximetry which showed a 21 event per hour of hypoxia more than 4% 4 over than 10 seconds. The patient did not have any chest pain, shortness of breath, no new symptoms reported since yesterday. She continued to have trace edema in the periphery. Objective Her physical exam today on 06/15/2018 showed blood pressure of 211/95 currently better controlled with antihypertensive medications, heart rate is 69 with occasional bigeminy, O2 saturation is 95% on nasal cannula, no JVP, no stridor, S1-S2 regular rate and rhythm, distant breath sounds with minimal crackles mainly at the bases, abdomen is benign, no edema, no pain in her calves. Her data showed elevated troponin, BNP was elevated, and BUN/creatinine has been elevated but stable. Chest x-ray has cleared significantly from pulmonary edema to almost minimal pulmonary vascular congestion. Physical exam on 06/16/2018 showed middle-aged female does not appear to be in any distress, no JVP, vital signs are stable, S1-S2 regular rate and rhythm, distant breath sounds with basilar crackles, abdomen is benign, trace edema in the periphery. Her laboratory also were reviewed as well as her chest x-ray which showed mild pulmonary vascular congestion. Physical exam on 06/17/2018 showed stable vital signs, O2 sat 92% on room air at rest, distant breath sounds bilaterally with minimal crackles at the bases, S1- S2 with occasional PVCs, abdomen is benign, trace edema in the periphery. Neurologically she is intact. Her labs also were reviewed which showed troponin that has been trending down. Overnight pulse oximetry was also evaluated showing 21 events per hour of significant hypoxia with a drop in O2 sat more than 4% lasting for 10 seconds, there was no significant drop in the heart rate with it. Assessment & Plan 1. Acute RI, new onset left bundle branch block, status post PCI with STEPHANIE 1 to the LAD. 2. History of hypertension. 3. Patient is nondiabetic, non-smoker, denies history of hyperlipidemia in the past, she does have strong family history for coronary artery disease. 4. History of ovarian cancer 20 years ago. 5. Cardiomyopathy with EF of 25%. 6. High suspicion for obstructive sleep apnea given the findings on overnight pulse oximetry. 7. UTI with pansensitive E. coli. Plan: 1. Appreciate cardiology input including Dr. Zamarripa and Dr. Love. 2. Lasix 40 mg p.o. daily. 3. Continue with aspirin and Plavix. Patient already loaded with Plavix. 4. Potassium 40 mEq daily p.o. 5. The patient required the BiPAP overnight, likely she will need the BiPAP every night for life. 6. Continue with Coreg 25 twice daily and lisinopril 20 mg p.o. twice daily.. 7. Arrange for outpatient PSG. 8. Continue with Imdur. 9. Discussed with the patient and her at the bedside. They are in agreement with the plan. 10. Check with cardiology if the patient is a candidate for AICD. 11. Subcu heparin for DVT prophylaxis. 12. Tolerating oral intake. 13. AHA diet. 14. She will need a follow-up with pulmonary as an outpatient. 15. Transfer to telemetry floor. 16. Appreciate all involved in the care of this patient. 17. Change antibiotics to Keflex p.o. for total of 7 days. Discussed with the staff on rounds and details. CCT was 45 minutes. Data Medications: Current Inpatient Medications Medications (Trade) Dose Ordered Sig/Gama Route Start Time Stop Time Status Last Admin Dose Admin Glucose (Glucose 40% Gel) 15-30 GRAMS 15 GRAMS... UD PRN PO 06/14/18 23:15 07/14/18 23:14 Glucose (Glucose Chew Tab) 4-8 Tablets 4 Tabl... UD PRN PO 06/14/18 23:15 07/14/18 23:14 Dextrose (Dextrose 50% 50ML Syringe) 25-50ML 25ML FOR ... UD PRN IV 06/14/18 23:15 07/14/18 23:14 Glucagon (Glucagon Inj) 1 mg UD PRN SQ 06/14/18 23:15 07/14/18 23:14 Carbohydrates (Carbohydrates For Hypoglycemia) 15-30 GRAMS 15 grams if BSG 54-69... UD PRN PO 06/14/18 23:15 07/14/18 23:14 Prochlorperazine Edisylate 5 mg/ Syringe 5 ml @ 5 mls/min Q6H PRN IV 06/14/18 23:15 07/14/18 23:14 06/15/18 03:43 5 MLS/MIN Atorvastatin Calcium (Lipitor Tab) 40 mg DAILY NG 06/15/18 09:00 07/15/18 08:59 06/17/18 07:48 40 MG Multivitamins (Multivitamin Tab) 1 tab DAILY NG 06/15/18 09:00 07/15/18 08:59 06/17/18 07:48 1 TAB Nitroglycerin (Nitrostat Tab) 0.4 mg UD PRN SL 06/15/18 10:00 07/15/18 09:59 Atropine Sulfate (Atropine Sulfate 0.1mg/ml Inj) 0.5 mg ONE PRN IV 06/15/18 10:00 07/15/18 09:59 Aspirin (Ecotrin Tab) 81 mg QAM PO 06/16/18 09:00 07/16/18 08:59 06/17/18 08:02 81 MG Clopidogrel Bisulfate (plAVix TAB) 75 mg QAM PO 06/16/18 09:00 07/16/18 08:59 06/17/18 07:48 75 MG Morphine Sulfate (MoRPHine SULFATE INJ) 2 mg Q5M PRN IV 06/15/18 10:00 06/29/18 09:59 Carvedilol (Coreg Tab) 25 mg BID PO 06/15/18 21:00 07/15/18 20:59 06/17/18 07:49 25 MG Pantoprazole Sodium (Protonix Tab) 40 mg QAM PO 06/16/18 09:00 06/19/18 09:01 06/17/18 07:48 40 MG Heparin Sodium (Porcine) (Heparin Sq 5000 Unit/0.5ml) 5,000 unit Q8 SQ 06/15/18 22:00 07/15/18 21:59 06/17/18 13:22 5,000 UNIT Insulin Aspart (novoLOG ASPART) SLIDING SCALE If C... ACHS SC 06/15/18 21:00 07/15/18 05:59 06/17/18 11:54 3 UNITS Lisinopril (Zestril Tab) 20 mg BID PO 06/16/18 09:00 07/16/18 08:59 06/17/18 07:49 20 MG Isosorbide Mononitrate (Imdur Ext Rel Tab) 30 mg QAM PO 06/17/18 09:00 07/17/18 08:59 06/17/18 07:48 30 MG Furosemide (Lasix Tab) 40 mg QAM PO 06/17/18 09:00 07/17/18 08:59 06/17/18 09:09 40 MG Cephalexin Monohydrate (Keflex Cap) 500 mg BID PO 06/17/18 09:00 06/20/18 23:59 06/17/18 09:08 500 MG Potassium Chloride (Klor-Con Tab) 40 meq QAM PO 06/17/18 09:00 07/17/18 08:59 06/17/18 09:09 40 MEQ Vital Signs: Date Time Temp Pulse Resp B/P (MAP) Pulse Ox O2 Delivery O2 Flow Rate FiO2 06/17/18 13:46 36.4 74 18 144/88 (106) 96 Room Air 06/17/18 13:26 Room Air 06/17/18 12:23 36.8 76 19 107/77 (87) 96 Room Air 06/17/18 10:30 36.7 69 19 127/73 (91) 96 Room Air 06/17/18 08:30 36.9 73 22 143/80 (101) 96 Room Air 06/17/18 08:00 Room Air 06/17/18 08:00 Room Air CPAP 06/17/18 07:02 73 17 141/95 (110) 93 Room Air 06/17/18 07:00 36.9 78 15 141/95 (110) 94 Room Air 06/17/18 06:46 86 21 137/106 (116) Room Air 06/17/18 06:06 61 13 167/107 (127) 95 Room Air 06/17/18 05:01 64 21 143/94 (110) 94 Room Air 06/17/18 04:50 74 24 139/91 (107) 95 Room Air 06/17/18 04:02 36.6 74 20 154/109 (124) 96 Room Air 06/17/18 03:01 52 8 98/76 (83) 90 Room Air 06/17/18 02:01 56 17 115/72 (86) 91 Room Air 06/17/18 01:02 50 21 104/50 (68) 86 Room Air 06/17/18 00:01 37.0 52 27 155/96 (115) 96 Room Air 06/16/18 23:01 59 23 139/99 (112) 94 Room Air 06/16/18 21:47 Room Air 06/16/18 21:29 74 22 170/92 (118) 96 Room Air 06/16/18 21:27 79 21 191/112 (138) 95 Room Air 06/16/18 21:01 85 28 160/122 (135) 94 Room Air 06/16/18 21:00 Room Air 06/16/18 20:18 76 25 163/126 (138) 95 Room Air 06/16/18 20:01 36.7 66 21 170/101 (124) 94 Room Air 06/16/18 19:00 74 25 166/102 (123) 97 Room Air 06/16/18 18:00 75 29 168/95 (119) 94 Room Air 06/16/18 17:00 72 26 155/93 (113) 82 Room Air 06/16/18 16:00 36.9 71 13 172/107 (128) 95 Room Air Laboratory Results: Last 24 Hours Test 06/16/18 16:38 06/16/18 21:11 06/17/18 04:28 06/17/18 06:49 Bedside Glucose 97 mg/dl 105 mg/dl 91 mg/dl White Blood Count 10.52 K/uL Red Blood Count 4.03 M/uL Hemoglobin 12.6 g/dL Hematocrit 38.3 % Mean Corpuscular Volume 95.0 fL Mean Corpuscular Hemoglobin 31.3 pg Mean Corpuscular Hemoglobin Concent 32.9 g/dl RDW Standard Deviation 45.6 fL RDW Coefficient of Variation 13.3 % Platelet Count 171 K/uL Mean Platelet Volume 11.5 fL Sodium Level 138 mmol/L Potassium Level 3.6 mmol/L Chloride Level 106 mmol/L Carbon Dioxide Level 25 mmol/L Anion Gap 7.0 mmol/L Blood Urea Nitrogen 24 mg/dl Creatinine 1.30 mg/dl Est Creatinine Clear Calc Drug Dose 46.5 ml/min Estimated GFR () 54.2 Estimated GFR (Non- 46.8 BUN/Creatinine Ratio 18.7 Random Glucose 96 mg/dl Calcium Level 8.5 mg/dl Magnesium Level 2.1 mg/dl Troponin I 4.910 ng/ml Test 06/17/18 11:22 Bedside Glucose 110 mg/dl
--- NOTE | 2018-06-17 17:01 | Progress Note ---
Internal Med Progress Note Date of Service: Jun 17, 2018. Provider Documentation: SUBJECTIVE: no complain of SOB or orthopnea no chest pain feels fine OBJECTIVE: Vital Signs-as noted below Exam: General-no sign of distress, comfortable Eyes-sclera nonicteric, pupils bilateral equal reactive light extraocular muscle ENT-moist oral mucosa Neck-no JVD, no carotid bruit, neck supple, no thyromegaly, trachea midline Lungs-clear to auscultate, no wheeze or rales Heart-regular S1 and S2 no murmur Abdomen-soft nontender, no organomegaly, bowel sounds Extremities-no rash or deformity, no lower extremity Neuro-alert awake oriented 3, no focal neurological Psych-normal mood and affect, Lymph nodes-no lymphadenopathy Lab data as noted below. ASSESSMENT & PLAN: ACUTE HYPOXEMIC RESPIRATORY FAILURE Due to acute decompensated systolic heart failure in the setting of hypertensive urgency -Required mechanical intubation with ventilatory support -Respiratory status is baseline -Extubated ON 06/15/18 -Remains in room air -Appreciate input from critical care and cardiology ACUTE CHF WITH SYSTOLIC DYSFUNCTION -History of ischemic cardiomyopathy with EF of 25-29% -Leading to acute respiratory failure with mechanical ventilation -Successful extubation post cardiac cath -Diuretics to be adjusted by cardiac -Continue to monitor volume status -will need Zoll life vest on discharge NON-ST ELEVATED WA -New left bundle branch block with mildly elevated troponin Status post emergent cardiac cath with drug-eluting stent to mid LAD -Patient is started on dual antiplatelet-aspirin and Plavix -Continue beta-juan carlos, nitrates, statin -will started on GILMA inhibitor once renal function improves to baseline -Echocardiogram: Left ventricular systolic function is severely reduced. Ejection Fraction = 25-30%. There is moderate concentric left ventricular hypertrophy. The septum is severely hypokinetic to akinetic with dysergastic wall motion. The inferior wall is severely hypokinetic. The remaining left ventricular myocardial wall segments are moderate to severely hypokinetic. There is mild to moderate mitral regurgitation. 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 script will be given for O2 2 L via nasal canula at night Given significant history of CAD, CHF with systolic dysfunction, patient will benefit with CPAP will need formal sleep study as out patient DYSLIPIDEMIA Continue on statin Goal LDL<70 UTI Urine culture E coli On IV Rocephin Plan to transition to p.o. antibiotics once sensitivities available CODE STATUS: Full code DVT PROPHYLAXIS Subcu heparin DISPOSITION Expected to be discharged home tomorrow 06/18/18 Referral made for cardiac rehab Need to established follow-up care with [facility] cardiology, patient is willing to follow-up with Dr. Mamadou Palacios Medicine follow-up with Dr. Greene at [facility] Vital Signs: Date Time Temp Pulse Resp B/P (MAP) Pulse Ox O2 Delivery O2 Flow Rate FiO2 06/17/18 15:16 36.7 60 20 145/92 (109) 96 Room Air 06/17/18 13:46 36.4 74 18 144/88 (106) 96 Room Air 06/17/18 13:26 Room Air 06/17/18 12:23 36.8 76 19 107/77 (87) 96 Room Air 06/17/18 10:30 36.7 69 19 127/73 (91) 96 Room Air 06/17/18 08:30 36.9 73 22 143/80 (101) 96 Room Air 06/17/18 08:00 Room Air 06/17/18 08:00 Room Air CPAP 06/17/18 07:02 73 17 141/95 (110) 93 Room Air 06/17/18 07:00 36.9 78 15 141/95 (110) 94 Room Air 06/17/18 06:46 86 21 137/106 (116) Room Air 06/17/18 06:06 61 13 167/107 (127) 95 Room Air 06/17/18 05:01 64 21 143/94 (110) 94 Room Air 06/17/18 04:50 74 24 139/91 (107) 95 Room Air 06/17/18 04:02 36.6 74 20 154/109 (124) 96 Room Air 06/17/18 03:01 52 8 98/76 (83) 90 Room Air 06/17/18 02:01 56 17 115/72 (86) 91 Room Air 06/17/18 01:02 50 21 104/50 (68) 86 Room Air 06/17/18 00:01 37.0 52 27 155/96 (115) 96 Room Air 06/16/18 23:01 59 23 139/99 (112) 94 Room Air 06/16/18 21:47 Room Air 06/16/18 21:29 74 22 170/92 (118) 96 Room Air 06/16/18 21:27 79 21 191/112 (138) 95 Room Air 06/16/18 21:01 85 28 160/122 (135) 94 Room Air 06/16/18 21:00 Room Air 06/16/18 20:18 76 25 163/126 (138) 95 Room Air 06/16/18 20:01 36.7 66 21 170/101 (124) 94 Room Air 06/16/18 19:00 74 25 166/102 (123) 97 Room Air Lab Results: Results Past 24 Hours Test 06/16/18 21:11 06/17/18 04:28 06/17/18 06:49 06/17/18 11:22 Range/Units Bedside Glucose 105 91 110 70-90 mg/dl White Blood Count 10.52 4.8-10.8 K/uL Red Blood Count 4.03 4.2-5.4 M/uL Hemoglobin 12.6 12.0-16.0 g/dL Hematocrit 38.3 37-47 % Mean Corpuscular Volume 95.0 80-100 fL Mean Corpuscular Hemoglobin 31.3 25-34 pg Mean Corpuscular Hemoglobin Concent 32.9 32-36 g/dl RDW Standard Deviation 45.6 36.4-46.3 fL RDW Coefficient of Variation 13.3 11.5-14.5 % Platelet Count 171 130-400 K/uL Mean Platelet Volume 11.5 7.4-10.4 fL Sodium Level 138 136-145 mmol/L Potassium Level 3.6 3.5-5.1 mmol/L Chloride Level 106 98-107 mmol/L Carbon Dioxide Level 25 21-32 mmol/L Anion Gap 7.0 3-11 mmol/L Blood Urea Nitrogen 24 7-18 mg/dl Creatinine 1.30 0.60-1.20 mg/dl Est Creatinine Clear Calc Drug Dose 46.5 ml/min Estimated GFR () 54.2 Estimated GFR (Non- 46.8 BUN/Creatinine Ratio 18.7 10-20 Random Glucose 96 70-99 mg/dl Calcium Level 8.5 8.5-10.1 mg/dl Magnesium Level 2.1 1.8-2.4 mg/dl Troponin I 4.910 0-0.045 ng/ml Test 06/17/18 16:27 06/17/18 18:06 Range/Units Bedside Glucose 113 70-90 mg/dl
[2018-06-17 18:47] LABS: CREATININE 1.56 mg/dl (0.60-1.20)
[2018-06-18 03:31] VITALS: BP 136/93; PULSE 93; TEMP 36.5; O2SAT 94
[2018-06-18 06:21] LABS: BASO % 0.4 %; BASO ABS # 0.04 K/uL (0-0.2); EOS % 4.9 %; EOS ABS # 0.47 K/uL (0-0.5); HEMATOCRIT 38.4 % (37-47); HEMOGLOBIN 12.8 g/dL (12.0-16.0); IG# 0.03 K/uL (0.00-0.02); LYMPH % 27.2 %; LYMPH ABS # 2.62 K/uL (1.2-3.4); MEAN CELL VOLUME 95.3 fL (80-100); MEAN CORPUSCULAR HEMOGLOBIN 31.8 pg (25-34); MEAN CORPUSCULAR HGB CONC 33.3 g/dl (32-36); MEAN PLATELET VOLUME 11.2 fL (7.4-10.4); MONO ABS # 0.87 K/uL (0.11-0.59); NEUT % 58.2 %; NEUT ABS # 5.62 K/uL (1.4-6.5); PLATELET COUNT 168 K/uL (130-400); RED CELL DISTRIBUTION WIDTH CV 13.2 % (11.5-14.5); RED CELL DISTRIBUTION WIDTH SD 45.5 fL (36.4-46.3); WHITE BLOOD COUNT 9.65 K/uL (4.8-10.8)
[2018-06-18] MEDS: HEPARIN SOD 5000 UNIT/0.5 ML CARP SQ SCH ×2 (06:28→13:28)
[2018-06-18 06:58] LABS: CALCIUM 8.7 mg/dl (8.5-10.1); CREATININE 1.18 mg/dl (0.60-1.20); POTASSIUM 4.2 mmol/L (3.5-5.1)
[2018-06-18 07:29] VITALS: BP 165/83; PULSE 67; TEMP 36.6; O2SAT 97
[2018-06-18] MEDS ORDERED: MCRK20 PO (07:41)
[2018-06-18] MEDS ORDERED: PLV75 PO (07:41)
[2018-06-18] MEDS ORDERED: LSX40 PO (07:41)
[2018-06-18] MEDS ORDERED: IMDSR30 PO (07:41)
--- NOTE | 2018-06-18 07:42 | Discharge Instructions ---
Discharge Instructions Date of Service Jun 18, 2018. Admission Reason for Admission: Respiratory Failure, Acute Discharge Discharge Diagnosis / Problem: ACUTE CHF WITH SEVERE SYSTOLIC DYSFUNCTION /CAD Discharge Goals Goal(s): Decrease discomfort, Improve function, Increase independence, Improve disease control, Diagnostic testing, Therapeutic intervention Activity Recommendations Activity Limitations: as noted below ( TOLERATED ) . Instructions / Follow-Up Instructions / Follow-Up CARDIOLOGY FOLLOW UP on 07/02/2018 @ 10:00 AM Carlos Palacios, Cardiology, [facility] TAKE ASPIRIN AND PLAVIX ( TAKE WITH MEALS ) DAILY UNINTERRUPTED FOR 1 YEAR ( FOR PATENCY OF CARDIAC STENT ) IT IS VERY IMPORTANT NOT TO STOP ANY OF THOSE MEDICATIONS WITHOUT TALKING TO A PUBLIC POLICY MANAGER PLEASE NOTIFY YOUR FAMILY PHYSICIAN /PUBLIC POLICY MANAGER WITH ANY EVENT OF DARK STOOL OR BLOOD IN STOOL HOSPITAL FOLLOW UP : DR DEBBY KLEIN AT [facility] ON June @ 11:05 AM AVOID SALT INTAKE IN FOOD -WILL CAUSE YOU HAVE EXTRA FLUID RETENTION LEADING TO HEART FAILURE Call your Primary Care doctor if any of the following symptoms or problems start or get worse: * Shortness of breath or difficulty breathing * Wake up at night short of breath * Chest pain * Cough * Swelling of your hands, feet, or legs * More fatigued or tired with your normal activity * Palpitations - sudden fast heart beats WEIGHT * Weigh yourself every morning after using the bathroom. * Use the same scale. * Wear the same amount of clothing. * Write your weight down on a chart. * Call your Primary Care doctor if you gain more than 2-3 pounds in 1-2 days. MEDICATIONS * Use this discharge instruction sheet for medication instructions. * Take your medications at the time your doctor ordered. * Do not skip a dose of your medicines. * If you miss a dose of medicine, take it as soon as possible, but DO NOT DOUBLE A DOSE. * Read your medicine information when you get home. * Know all of the side effects of your medicine. If in doubt, ask your pharmacist * Call your Primary Care doctor's office if you have any side effects. * Be sure all of your doctors know what medicine and herbs you take (including cold, flu, and herbal medicine). Take the following with you to your follow-up doctor appointments: * Weight Chart * Medication List * List of questions Do not drink excessive alcohol, beer or wine. Current Hospital Diet Patient's current hospital diet: AHA Diet (Heart Healthy), Diabetes Type 2 Diet Discharge Diet Recommended Diet: AHA Diet (Heart Healthy), Diabetes Type 2 Diet Fluid Restriction: 2000 ml (8 cups) Pending Studies Studies pending at discharge: no Laboratory Results Hemoglobin A1c Test 06/14/18 23:03 Range/Units Estimated Average Glucose 111 mg/dl Hemoglobin A1c 5.5 4.5-5.6 % Lipid Panel Test 06/15/18 08:28 Range/Units Triglycerides Level 141 0-150 mg/dl Cholesterol Level 221 H 0-200 mg/dl HDL Cholesterol 43 mg/dl LDL Cholesterol Direct 166 mg/dl Cholesterol/HDL Ratio 5.1 LDL Cholesterol, Calculated mg/dl Medical Emergencies . Who to Call and When: Call 911 or go to the Emergency Room if: * If at any time you feel your situation is an emergency * You have tightness or pain in your chest that does not go away with rest or Nitroglycerin * You are very short of breath even with rest . Non-Emergent Contact Non-Emergency issues call your: Primary Care Provider . . "Provider Documentation" section prepared by Joseline Dobbins. .
[2018-06-18] MEDS: MULTIVITAMIN TAB NG SCH (08:01)
[2018-06-18] MEDS: PANTOprazole SOD 40 MG TAB PO SCH (08:01)
[2018-06-18] MEDS: CEPHALEXIN MONOHYDRATE 500 MG CAP PO SCH (08:01)
[2018-06-18] MEDS: LISINOPRIL 20 MG TAB PO SCH (08:01)
[2018-06-18] MEDS: CLOPIDOGREL BISULFATE 75 MG TAB PO SCH (08:02)
[2018-06-18] MEDS: ISOSORBIDE MONONITRATE 30 MG TABCR PO SCH (08:02)
[2018-06-18] MEDS: FUROSEMIDE 40 MG TAB PO SCH (08:02)
[2018-06-18] MEDS: POTASSIUM CHLORIDE 20 MEQ TABCR PO SCH (08:02)
[2018-06-18] MEDS: ATORVASTATIN 40 MG TAB NG SCH (08:02)
[2018-06-18] MEDS: ASPIRIN 81 MG ECTAB PO SCH (08:02)
[2018-06-18] MEDS: CARVEDILOL 25 MG TAB PO SCH (08:03)
[2018-06-18] MEDS: INSULIN ASPART 100 UNITS/ML 3 ML PEN SC SCH ×2 (08:06→11:56)
--- NOTE | 2018-06-18 09:38 | Cardiology Follow-Up ---
Subjective General Date of Service: Jun 18, 2018. Pt evaluation today including: conversation w/ patient, physical exam, chart review, lab review, review of studies, review of inpatient medication list History of Present Illness The patient is a 52 year old female seen in follow-up. Feeling well from a cardiovascular standpoint. Denies any chest pain or unusual shortness of breath. Telemetry demonstrates sinus rhythm with a left bundle branch block and intermittent PVCs. No sustained ventricular tachycardia. He has been ambulating in the halls without exertional symptoms. Blood pressures remain labile. Troponins remain elevated and somewhat flat. Denies lightheadedness, dizziness, syncope, or near syncope. Awaiting placement of LifeVest at this time. Tolerating medications. Allergies Coded Allergies: No Known Allergies (Verified , 06/14/18) Social History Smoking Status: Never Smoker (As reported by ) Hx Alcohol Use - Type And Amou: No Hx Substance Use - Type And Am: No Problem List Medical Problems: (1) CHF (congestive heart failure) Status: Acute (2) Pulmonary edema Status: Acute (3) Respiratory failure Status: Acute Review of Systems Respiratory: No cough, No sputum, No wheezing, No shortness of breath, No dyspnea on exertion, No dyspnea at rest, No hemoptysis Cardiac: No chest pain, No orthopnea, No PND, No edema, No claudication Physical Exam Vital Signs Last Vital Signs Documentation Date Time Temp Pulse Resp B/P (MAP) Pulse Ox O2 Delivery O2 Flow Rate FiO2 06/18/18 09:14 Room Air 06/18/18 07:29 36.6 67 17 165/83 (110) 97 06/17/18 21:54 2.0 06/15/18 10:32 40 Physical Exam Constitutional: General Apperance: heathly-appearing Level of Distress: NAD Head: normocephalic, atraumatic ENMT: normal ENT inspection Neck: supple, trachea midline Lungs: Auscultation: no wheezing, no rales/crackles, no rhonchi Cardiovascular: Heart Auscultation: RRR, normal S1, normal S2, no murmurs Peripheral Pulses: Radial Pulse: normal on the right Abdomen: Bowel Sounds: normal Inspection & Palpation: soft, non-distended Extremities: no cyanosis, no edema, no clubbing, no ulcers Neurologic: Gait & Station: pertinent finding (No focal motor deficit.) Cranial Nerves: grossly intact Assessment and Plan Assessment and Plan FINAL IMPRESSION: 1. A 52-year-old female admitted with acute decompensated systolic heart failure in the setting of hypertensive emergency. Pulmonary edema has resolved per exam and chest x-ray. Patient tolerating current medical therapies and oral diuretic. Creatinine trending downward. Respiratory status stable. Elevated troponins noted of unclear clinical significance as the patient is chest pain-free for more than 48 hours without evidence of decompensated heart failure or unstable dysrhythmias on telemetry. 2. New left bundle-branch block, elevated troponin status post cardiac catheterization and drug-eluting stent to the mid LAD. 3. Cardiomyopathy with ejection fraction of 25-29%. 4. Acute renal insufficiency - improving. 5. S/P VDRF secondary to #1 6. Longstanding history of labile hypertensive and dilated nonischemic cardiomyopathy in the past. 7. Dyslipidemia. PLAN AND RECOMMENDATIONS: Continue evidence-based heart failure therapy with carvedilol, and GILMA inhibitor. We will consider adding Aldactone as outpatient. Patient currently without angina. Continue Lasix 40 mg daily. Continue dual antiplatelet therapy uninterrupted for a minimum of 1 year post percutaneous intervention. LifeVest will be placed today. Repeat evaluation of LV systolic function in 3 months with consideration for ICD pending review. Outpatient cardiology follow-up in 2 weeks. Laboratory Results Last 24 Hours Test 06/17/18 11:22 06/17/18 16:27 06/17/18 18:06 06/17/18 20:23 Bedside Glucose 110 mg/dl 113 mg/dl 98 mg/dl Creatinine 1.56 mg/dl Est Creatinine Clear Calc Drug Dose 38.3 ml/min Estimated GFR () 43.5 Estimated GFR (Non- 37.5 Troponin I 4.530 ng/ml Test 06/18/18 06:10 06/18/18 07:28 White Blood Count 9.65 K/uL Red Blood Count 4.03 M/uL Hemoglobin 12.8 g/dL Hematocrit 38.4 % Mean Corpuscular Volume 95.3 fL Mean Corpuscular Hemoglobin 31.8 pg Mean Corpuscular Hemoglobin Concent 33.3 g/dl Platelet Count 168 K/uL Mean Platelet Volume 11.2 fL Neutrophils (%) (Auto) 58.2 % Lymphocytes (%) (Auto) 27.2 % Monocytes (%) (Auto) 9.0 % Eosinophils (%) (Auto) 4.9 % Basophils (%) (Auto) 0.4 % Neutrophils # (Auto) 5.62 K/uL Lymphocytes # (Auto) 2.62 K/uL Monocytes # (Auto) 0.87 K/uL Eosinophils # (Auto) 0.47 K/uL Basophils # (Auto) 0.04 K/uL RDW Standard Deviation 45.5 fL RDW Coefficient of Variation 13.2 % Immature Granulocyte % (Auto) 0.3 % Immature Granulocyte # (Auto) 0.03 K/uL Sodium Level 138 mmol/L Potassium Level 4.2 mmol/L Chloride Level 106 mmol/L Carbon Dioxide Level 25 mmol/L Anion Gap 7.0 mmol/L Blood Urea Nitrogen 23 mg/dl Creatinine 1.18 mg/dl Est Creatinine Clear Calc Drug Dose 50.4 ml/min Estimated GFR () 61.0 Estimated GFR (Non- 52.6 BUN/Creatinine Ratio 19.2 Random Glucose 94 mg/dl Calcium Level 8.7 mg/dl Magnesium Level 2.1 mg/dl Troponin I 5.470 ng/ml Bedside Glucose 99 mg/dl
[2018-06-18 11:19] VITALS: BP 96/76; PULSE 65; TEMP 36.5; O2SAT 94
[2018-06-18] MEDS ORDERED: CRG25 PO (13:06)
[2018-06-18] MEDS ORDERED: LPT40 PO (13:06)
[2018-06-18] MEDS ORDERED: LISI20TA3 PO (13:06)
[2018-06-18] MEDS ORDERED: ASPI-461 PO (13:06)
[2018-06-18] MEDS ORDERED: GLC/500 PO (13:06)
--- NOTE | 2018-06-18 13:18 | Discharge Summary ---
Discharge Summary Date of Service Jun 18, 2018. Discharge Summary Admission Date: Jun 14, 2018 at 22:54 Discharge Date: Jun 18, 2018 Discharge Disposition: Home Principal Diagnosis: ACUTE CHF WITH SEVERE SYSTOLIC DYSFUNCTION /CAD Procedures: CARDIAC CATH: 06/14/2018 FINDINGS: Left main is normal. Left anterior descending artery is moderate in caliber with a focal mid 80% stenosis between 2 septal perforators. First diagonal branch is free of significant disease. Left circumflex, circumflex marginal and posterolateral branches are free of significant disease. The right coronary artery, the posterior descending artery, the posterior AV extension of the right coronary and posterolateral branches arising from it are all free of significant disease. Left ventricular end diastolic pressure is normal. No significant aortic valve gradient was demonstrated. Final cineangiograms demonstrate no residual stenosis, normal cut resection, COREY grade 3 flow in the LAD. IMPRESSION: Successful angioplasty, drug-eluting stent placement. RECOMMENDATIONS: Dual antiplatelet therapy per DAPT guidelines. ECHOCARDIOGRAM: Left ventricular systolic function is severely reduced. Ejection Fraction = 25-30%. There is moderate concentric left ventricular hypertrophy. The septum is severely hypokinetic to akinetic with disynergistic wall motion. The inferior wall is severely hypokinetic. The remaining left ventricular myocardial wall segments are moderate to severely hypokinetic. There is mild to moderate mitral regurgitation. Consultations: CARDIOLOGY CRITICAL CARE Medication Reconciliation New Medications: Atorvastatin (Lipitor) 40 Mg Tab 80 MG PO DAILY for 30 Days, #60 TAB 4 Refills Clopidogrel Bisulfate (Clopidogrel) 75 Mg Tab 75 MG PO QAM for 30 Days, #30 TAB 6 Refills Furosemide (Furosemide) 40 Mg Tab 40 MG PO QAM for 30 Days, #30 TAB 3 Refills Isosorbide Mononitrate (Isosorbide Mononitrate ER) 30 Mg Tabcr 30 MG PO QAM for 30 Days, #30 TABS 3 Refills Potassium Chloride (Klor-Con M20) 20 Meq Tabcr 40 MEQ PO QAM for 30 Days, #60 TABS 3 Refills Continued Medications: Aspirin (Aspirin Ec) 81 Mg Tab 81 MG PO DAILY Carvedilol (Coreg) 25 Mg Tab 1 TAB PO BID for 90 Days, #180 TAB 3 Refills Lisinopril (Prinivil) 20 Mg Tab 20 MG PO BID for 30 Days, #60 TAB 3 Refills (This prescription has been renewed) Metformin Hcl (Glucophage) 500 Mg Tab 500 MG PO BID for 30 Days, #60 TAB 3 Refills (This prescription has been renewed ) Multivitamin (Multivitamin) Tab 1 TAB PO DAILY, TAB Discontinued Medications: Atorvastatin (Lipitor) 40 Mg Tab 40 MG PO DAILY, TAB Hydrochlorothiazide (Hctz) 25 Mg Tab 25 MG PO DAILY, TAB Referrals At Discharge Follow up Referrals: Student Services Representative Referral - Please Call For Appointment with Carlos Palacios DO Physician Referral - 06/23/18 with Dbeby Uriarte M.D. Admission Information HPI (per Admitting provider): DATE OF ADMISSION: 06/14/2018 PRIMARY CARE DOCTOR: Dr. Greene. CHIEF COMPLAINT: Shortness of breath as per family. HISTORY OF PRESENT ILLNESS: History obtained from family, records. Unable to obtain history from patient secondary to intubated state. Medical history significant for hypertension, hyperlipidemia, history of dilated cardiomyopathy as per records, DM 2 on oral meds. Recent confinement in 2004 for chest pain. As per family, 2 weeks history of patient having cough symptoms, increasing shortness of breath. Daughter thinks it's from "fluids." Patient's daughter thinks the patient is retaining fluid. Blood pressure at home all over the place as per . Patient adjusts medication by self as per . No chest pain complaints. Had followup with PCP about 2 weeks ago. No concerns as per outpatient note. Follow up in 6 months. Patient brought by family to the ER because of worsening shortness of breath. Subsequently intubated for respiratory distress/failure. MEDICAL HISTORY: As above. As per outpatient records Recent 2D echo on file (2008), EF 55% to 60%, borderline LVH, diastolic dysfunction, mild MR. Last [facility] [place] was January 2007. As per note, Known of dilated cardiomyopathy attributed to uncontrolled blood pressure. Patient reluctant about recommended diagnostic cardiac catheterization to rule out CAD as etio of cardiomyopathy. OPERATIONS: She has had section, dental surgery. HOME MEDICATIONS: Include aspirin, Coreg, lisinopril, Glucophage, Lipitor, multivitamins. ALLERGIES: No known drug allergies. FAMILY HISTORY: Heart disease. 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 Physical Exam (per Admitting): REVIEW OF SYSTEMS: Could not be obtained. PHYSICAL EXAMINATION: VITAL SIGNS: Blood pressure was noted to be 228/171, later 162/98; pulse rate 91; RR 36, later 20; temperature to be obtained. O2 sats 89 on 100% nonrebreather later 97% on 60% FIO2. GENERAL: Noted to be sedated and intubated. SKIN: Normal color, warm. HEENT: [place] palpebral conjunctivae, no ptosis, dry mucosa. NECK: Short neck, supple. CHEST: Bilateral expiratory wheezes, crackles noted. HEART: Regular rate and rhythm, systolic murmur. ABDOMEN: Some distention, nontender. EXTREMITIES: ivana edema, no tenderness. No other gross deformities. NEUROLOGIC: Sedated, pupills ERTL, no facial symmetry. Hospital Course No complaint of chest pain or shortness of breath No palpitation Ambulating independently in room Eager to be discharged home PHYSICAL EXAM General-no sign of distress, comfortable Eyes-sclera nonicteric, pupils bilateral equal reactive light extraocular muscle ENT-moist oral mucosa Neck-no JVD, no carotid bruit, neck supple, no thyromegaly, trachea midline Lungs-clear to auscultate, no wheeze or rales Heart-regular S1 and S2 no murmur Abdomen-soft nontender, no organomegaly, bowel sounds Extremities-no rash or deformity, no lower extremity Neuro-alert awake oriented 3, no focal neurological Psych-normal mood and affect, Lymph nodes-no lymphadenopathy Last 8 Hrs Date Time Temp Pulse Resp B/P (MAP) Pulse Ox O2 Delivery O2 Flow Rate FiO2 06/18/18 13:36 36.5 65 18 94 Room Air 06/18/18 11:19 36.5 65 18 96/76 (83) 94 Room Air 06/18/18 09:14 Room Air NON-ST ELEVATED NV -New left bundle branch block with mildly elevated troponin Status post emergent cardiac cath with drug-eluting stent to mid LAD -Patient is started on dual antiplatelet-aspirin and Plavix Will need to be in dual antiplatelet without any interruption for at least 12 months -Continue beta-juan carlos, nitrates, statin -Continue GILMA inhibitor: Lisinopril 20 mg twice daily -Echocardiogram: Shows severe ischemic cardiomyopathy with EF of 20-29% -Cardiology following -appreciate input -Arrangements made for life vest -prior to discharge home today, Patient will need a repeat cardiac workup/echocardiogram in 3 months -If no improvement of severe systolic dysfunction -Patient will need AICD to prevent sudden cardiac -Cardiology follow-up scheduled with Dr. Sales on 07/02/2018 ACUTE HYPOXEMIC RESPIRATORY FAILURE Resolved Due to acute decompensated systolic heart failure in the setting of hypertensive urgency -Required mechanical intubation with ventilatory support; extubated after 24 hours -Respiratory status is baseline Remains in room air -Appreciate input from critical care and cardiology -Patient is continued with Lasix, GILMA inhibitor, nitrates, Coreg for congestive heart failure management ACUTE CHF WITH SYSTOLIC DYSFUNCTION - ischemic cardiomyopathy with EF of 25-29% -Leading to acute respiratory failure with mechanical ventilation -Successful extubation post cardiac cath -Patient will be discharged with Lasix, GILMA inhibitor, Imdur, Coreg -Will be followed at the heart failure clinic at [facility] cardiology suite -Patient is given discharge instructions for congestive heart failure -Counseled for daily weight monitoring and signs and symptoms of volume overload -seek advice of family physician or cardiology as soon as possible ACUTE KIDNEY INJURY on CKD stage III -Resolved, renal function at baseline Had recent contrast exposure for emergent cardiac GILMA inhibitor resumed, patient is continued with Lasix HYPERTENSIVE URGENCY -Possible leading to decompensated CHF/non-ST elevated NV -BP stable after adjustment of meds -Added Imdur 30 mg daily -Continue with Coreg 25 mg twice daily, lisinopril 20 mg twice daily, Lasix 40 mg daily POSSIBLE OBSTRUCTIVE SLEEP APNEA Patient found to be desaturating at night Nocturnal pulse oximetry shows multiple episodes of desaturation Patient qualifies for 2 L oxygen at night Prescription given, and arrangements made for home O2 Patient will need outpatient sleep study DYSLIPIDEMIA Lipitor dose increased to 80 mg daily(was on 40 mg daily) Fasting lipid panel shows LDL of 166 Patient is counseled for dietary modification, exercise Repeat fasting lipid panel in 6 months and then yearly Goal LDL<70 UTI Urine culture E coli Was not p.o. Keflex Completed antibiotic course CODE STATUS: Full code DVT PROPHYLAXIS Subcu heparin DISPOSITION Stable to be discharged home today Total time spent on discharge = 40 minutes This includes examination of the patient, discharge planning, medication reconciliation, and communication with other providers. Discharge Instructions Discharge Instructions Date of Service Jun 18, 2018. Admission Reason for Admission: Respiratory Failure, Acute Discharge Discharge Diagnosis / Problem: ACUTE CHF WITH SEVERE SYSTOLIC DYSFUNCTION /CAD Discharge Goals Goal(s): Decrease discomfort, Improve function, Increase independence, Improve disease control, Diagnostic testing, Therapeutic intervention Activity Recommendations Activity Limitations: as noted below ( TOLERATED ) . Instructions / Follow-Up Instructions / Follow-Up CARDIOLOGY FOLLOW UP on 07/02/2018 @ 10:00 AM Carlos Palacios, DO Cardiology, [facility] TAKE ASPIRIN AND PLAVIX ( TAKE WITH MEALS ) DAILY UNINTERRUPTED FOR 1 YEAR ( FOR PATENCY OF CARDIAC STENT ) IT IS VERY IMPORTANT NOT TO STOP ANY OF THOSE MEDICATIONS WITHOUT TALKING TO A PATHOLOGY TECH PLEASE NOTIFY YOUR FAMILY PHYSICIAN /PATHOLOGY TECH WITH ANY EVENT OF DARK STOOL OR BLOOD IN STOOL HOSPITAL FOLLOW UP : DR DEBBY URIARTE AT [facility] ON June @ 11:05 AM AVOID SALT INTAKE IN FOOD -WILL CAUSE YOU HAVE EXTRA FLUID RETENTION LEADING TO HEART FAILURE Call your Primary Care doctor if any of the following symptoms or problems start or get worse: * Shortness of breath or difficulty breathing * Wake up at night short of breath * Chest pain * Cough * Swelling of your hands, feet, or legs * More fatigued or tired with your normal activity * Palpitations - sudden fast heart beats WEIGHT * Weigh yourself every morning after using the bathroom. * Use the same scale. * Wear the same amount of clothing. * Write your weight down on a chart. * Call your Primary Care doctor if you gain more than 2-3 pounds in 1-2 days. MEDICATIONS * Use this discharge instruction sheet for medication instructions. * Take your medications at the time your doctor ordered. * Do not skip a dose of your medicines. * If you miss a dose of medicine, take it as soon as possible, but DO NOT DOUBLE A DOSE. * Read your medicine information when you get home. * Know all of the side effects of your medicine. If in doubt, ask your pharmacist * Call your Primary Care doctor's office if you have any side effects. * Be sure all of your doctors know what medicine and herbs you take (including cold, flu, and herbal medicine). Take the following with you to your follow-up doctor appointments: * Weight Chart * Medication List * List of questions Do not drink excessive alcohol, beer or wine. Current Hospital Diet Patient's current hospital diet: AHA Diet (Heart Healthy), Diabetes Type 2 Diet Discharge Diet Recommended Diet: AHA Diet (Heart Healthy), Diabetes Type 2 Diet Fluid Restriction: 2000 ml (8 cups) Pending Studies Studies pending at discharge: no Laboratory Results Hemoglobin A1c Test 06/14/18 23:03 Range/Units Estimated Average Glucose 111 mg/dl Hemoglobin A1c 5.5 4.5-5.6 % Lipid Panel Test 06/15/18 08:28 Range/Units Triglycerides Level 141 0-150 mg/dl Cholesterol Level 221 H 0-200 mg/dl HDL Cholesterol 43 mg/dl LDL Cholesterol Direct 166 mg/dl Cholesterol/HDL Ratio 5.1 LDL Cholesterol, Calculated mg/dl Medical Emergencies . Who to Call and When: Call 911 or go to the Emergency Room if: * If at any time you feel your situation is an emergency * You have tightness or pain in your chest that does not go away with rest or Nitroglycerin * You are very short of breath even with rest . Non-Emergent Contact Non-Emergency issues call your: Primary Care Provider . . "Provider Documentation" section prepared by Joseline Dobbins. . Additional Copies To Debby Uriarte M.D.
[2018-06-18 13:36] VITALS: BP 96/76; PULSE 65; TEMP 36.5; O2SAT 94
[2018-06-19] MEDS ORDERED: ATORVASTATIN 40 MG TAB NG SCH (09:00)
== END 2018-06-18 16:13 | disposition home or self-care (01) | DRG 981 ==
LOC: C.EDB 21:19 → C.MSICU 22:54 → ENRESERV 23:25 → C.2T 06-17 13:49
PROVIDERS: ADMIT Internal Medicine; ATTEND Hospitalist
PROC: 4A023N7 Measurement of Cardiac Sampling and Pressure, Left Heart, Percutaneous Approach (ICD-10-PCS; principal; 2018-06-14)
PROC: B2100ZZ Fluoroscopy of Single Coronary Artery using High Osmolar Contrast (ICD-10-PCS; principal; 2018-06-14)
PROC: 027034Z Dilation of Coronary Artery, One Artery with Drug-eluting Intraluminal Device, Percutaneous Approach (ICD-10-PCS; principal; 2018-06-14)
PROC: 02703ZZ Dilation of Coronary Artery, One Artery, Percutaneous Approach (ICD-10-PCS; principal; 2018-06-14)
PROC: 5A1945Z Respiratory Ventilation, 24-96 Consecutive Hours (ICD-10-PCS; 2018-06-14)
DX: J96.02 Acute respiratory failure with hypercapnia (principal); I50.43 Acute on chronic combined systolic (congestive) and diastolic (congestive) heart failure; A41.9 Sepsis, unspecified organism; I21.4 Non-ST elevation (NSTEMI) myocardial infarction; E87.2 Acidosis; N17.9 Acute kidney failure, unspecified; N39.0 Urinary tract infection, site not specified; J96.01 Acute respiratory failure with hypoxia; E11.9 Type 2 diabetes mellitus without complications; Z88.3 Allergy status to other anti-infective agents; Z82.49 Family history of ischemic heart disease and other diseases of the circulatory system; Z82.0 Family history of epilepsy and other diseases of the nervous system; Z79.82 Long term (current) use of aspirin; I10 Essential (primary) hypertension; E78.5 Hyperlipidemia, unspecified; D75.1 Secondary polycythemia; N18.3 Chronic kidney disease, stage 3 (moderate); I16.0 Hypertensive urgency

== ENCOUNTER 2019-07-26 03:09 | Inpatient (IN) ==
[~2019-07-26 03:09] MED LIST changes: -ASPCH81; -ATOR-22 PO; -CPR500 PO; -CRG125 PO; -FRRS300 PO; -HYDC25 PO; +HydrALAZINE HCL 20 MG/ML VIAL IV ONE; -ISOS30TA3 PO; -KETAMINE HCL INJ 50 MG/ML 10 ML VIAL IV ONE; -LISI-461 PO; -MIDAZOLAM HCL 5 MG/ML 2ML VIAL IV ONE; -PHEN-876 PO; -SUCCINYLCHOLINE CHLORIDE 20 MG/ML 10 ML VIAL IV ONE; -XNX25 PO
[2019-07-26] MEDS ORDERED: LABETALOL HCL IV 5 MG/ML 20ML IV STA ×3 (03:35→05:41)
[2019-07-26 03:39] LABS: Basophils # (auto) 0.03 K/uL (0-0.2); Basophils % (auto) 0.4 %; Eosinophils # (auto) 0.72 K/uL (0-0.5); Eosinophils % (auto) 8.5 %; Hematocrit (blood only) 41.4 % (37-47); Hemoglobin 14.6 g/dL (12.0-16.0); Immature Granulocytes # (auto) 0.04 K/uL (0.00-0.02); Immature Granulocytes % (auto) 0.5 %; Lymphocytes # (auto) 2.69 K/uL (1.2-3.4); Lymphocytes % (auto) 31.6 %; Mean Corpuscular Hgb Conc 35.3 g/dL (32-36); Mean Corpuscular Volume 95.8 fL (80-100); Mean Platelet Volume 10.5 fL (7.4-10.4); Monocytes # (auto) 0.72 K/uL (0.11-0.59); Monocytes % (auto) 8.5 %; Neutrophils % (auto) 50.5 %; Platelet Count 172 K/uL (130-400); RDW Coefficient of Variation 12.5 % (11.5-14.5); RDW Standard Deviation 43.2 fL (36.4-46.3); Red Blood Count 4.32 M/uL (4.2-5.4)
[2019-07-26] MEDS ORDERED: LABETALOL HCL IV 5 MG/ML 20ML IV ONE (03:39)
[2019-07-26] MEDS ORDERED: SODIUM CHLORIDE 0.9% 500 ML IV SCH (03:45)
[2019-07-26 03:59] LABS: Albumin Level 3.8 gm/dl (3.4-5.0); BUN Creatinine Ratio 12.7 (10-20); Calcium 8.9 mg/dl (8.5-10.1); Creatinine Clr Calc Pharmacy 40.8 ml/min; Est GFR (African American) 44.9; Est GFR (Non-African American) 38.8; Magnesium 2.1 mg/dl (1.8-2.4); Potassium 3.7 mmol/L (3.5-5.1)
[2019-07-26 04:07] LABS: Albumin Globulin Ratio 1.1 (0.9-2); Bilirubin,Total 0.4 mg/dl (0.2-1); Globulin 3.6 gm/dl (2.5-4.0); Total Protein 7.4 gm/dl (6.4-8.2); Troponin I 0.196 ng/ml (0-0.045)
[2019-07-26] MEDS ORDERED: NITROGLYCERIN 2% OINTMENT 30GM TUBE EXT STA (04:42)
[2019-07-26] MEDS ORDERED: METOPROLOL SUCC 50MG EXT REL TAB ONE (06:02)
--- NOTE | 2019-07-26 06:33 | XRay Report ---
XR chest 1V portable CLINICAL HISTORY: hypertension, vomiting dyspnea COMPARISON STUDY: 09/24/2018 FINDINGS: The bones soft tissues and hemidiaphragms are normal. The cardiomediastinal silhouette is n ormal. The lungs are clear. The pulmonary vasculature is normal. Bipolar cardiac pacemaker with leads in good position IMPRESSION: Negative chest. The above report was generated using voice recognition software. It may contain grammatical, syntax or spelling errors. Electronically signed by: Binu Momin M.D. 07/26/2019 6:32 AM
[2019-07-26 06:39] LABS: Partial Thromboplastin Ratio 0.9; Partial Thromboplastin Time 23.4 Seconds (21.0-31.0)
--- NOTE | 2019-07-26 06:39 | History & Physical Report ---
Date of Service July 26, 2019 Assessment & Plan (1) Hypertensive crisis: Unclear precipitant for now History labile hypertension as per records although patient claims blood pressure controlled at home up until this morning. Troponin elevation secondary to above rule out ACS chronic systolic heart failure EF 34, 2019) 2 to nonischemic cardiomyopathy status post ICD Patient euvolemic hx CAD status post stent hx LBBB hyperlipidemia on statin Rx CRI, creatinine at baseline (patient unaware of chronic kidney dysfunction diagnosis) Hyperglycemia rule out DM ICU Continue home beta-juan carlos and Lisinopril meds, may need dose titration Hydralazine IV 1 dose now Trend troponin, TTE if with significant progression Cardiology consult RE hypertensive crisis Check hemoglobin A1c DVT prophylaxis. Heparin subcu Full code Total critical care time was 40 minutes. History of Present Illness Chief Complaint: High blood pressure Primary Care Provider: Rani Uriarte MD History obtained from patient, family, and records. Medical history significant for chronic systolic heart failure EF 34%, TTE 2018) secondary to nonischemic cardiomyopathy status post ICD, CAD status post stent, history of left bundle branch block, hypertension, hyperlipidemia, CRI (baseline creatinine 1.3-1.7). Recent confinement September 2018 under Cardiology service for elective biventricular ICD placement for nonischemic cardiomyopathy. Device rogation during outpatient Cardiology service November 2018 revealed frequent PVCs causing decline in biventricular pacing. Patient's carvedilol was changed to metoprolol as per records. On recent outpatient [facility] [place] follow-[place] visit 2 weeks ago, patient's metoprolol increased from 25 to 50 mg twice daily. ICD interrogation contemplated 3 weeks later. Patient noticed acid reflux symptoms following increase beta-juan carlos dose. Some relief with OTC Prilosec intake. SBP at home 1 20-1 30s as per patient. This a.m., patient woke up from sleep diaphoretic and with epigastric acid reflux discomfort causing her to be nauseous and to vomit. Patient denies actual chest pain, S OB, headache symptoms. SBP noted to be 200s which is unusual for her. Patient compliant with home medications, denies unusual stress, NSAID intake, dietary indiscretion. At the ER, SBP noted to be 220s. IV Labetalol given at the ER. BP currently 200/110. 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 Allergies Allergy/AdvReac Type Severity Reaction Status Date / Time No Known Allergies Allergy Unknown Verified 07/26/19 03:38 Home Medications Home Medications Medication Instructions Recorded Confirmed Type atorvastatin [Lipitor] 40 mg PO DAILY 09/21/18 07/26/19 History clopidogrel 75 mg PO QAM 09/21/18 07/26/19 History furosemide 40 mg PO QAM 09/21/18 07/26/19 History lisinopril 20 mg PO QAM 09/21/18 07/26/19 History potassium chloride 40 meq PO QAM 09/21/18 07/26/19 History aspirin [Aspirin Low Dose] 81 mg PO DAILY 09/23/18 07/26/19 History metoprolol succinate 50 mg PO BID 07/26/19 07/26/19 History Past Med/Surg History Medical History Congestive heart failure follows w/ dr. cavanaugh Diabetes mellitus, type 2 NIDDM Hyperlipidemia Hypertension Myocardial Infarction 3 months ago - [facility] - cardiac cath - 1 stent placed Sleep apnea no cpap Surgical History History of cardiac cath 3 months ago - [facility] - [place] - 1 stent placed - follows jo/ dr gray History of section X2 History of heart artery stent x1 History of tooth extraction Family History Grandfather Family history of diabetes mellitus Social History Preferred Language: Greek Communication Ability: Effective Ice Crusher Required: No Beliefs That Will Affect Care: None Current Living Situation: Spouse Other Information That Helps Us Care for You: No Feels Safe at Home: Yes Safety Concerns: Feels Safe At This Time Smoking Status: Never smoker Do You Dip or Chew Tobacco: No ; Second Hand Exposure: No ; Tobacco Cessation Education Requested by Patient: No Hx Alcohol Use: No Hx Substance Use: No Review of Systems Review of Systems: As per HPI, all 10 systems reviewed, all other ROS negative Physical Exam Physical Exam: GENERAL: Slightly anxious , obese, no respiratory distress SKIN: Normal color, warm HEENT: Bespectacled, pink palpebral conjunctivae, no ptosis, dry buccal mucosa NECK : Supple, short neck, no tenderness CHEST : CTA, no tenderness HEART : RRR, systolic murmur ABDOMEN: Some distention, nontender EXTREMITIES : No LE swelling/tenderness, no other conspicuous deformities noted NEUROLOGIC : Coherent, no facial asymmetry, no other gross focality Results & Data Vital Signs (Past 12 Hours) Vital Signs Temp Pulse Resp BP Pulse Ox 07/26/19 06:01 77 21 172/110 H 07/26/19 06:00 79 22 07/26/19 05:51 77 18 195/133 H 07/26/19 05:50 75 17 07/26/19 05:48 78 19 220/110 H 07/26/19 05:41 78 19 221/122 H 07/26/19 05:40 79 20 07/26/19 05:30 77 15 94 07/26/19 05:20 80 18 193/126 H 92 07/26/19 05:11 77 19 186/139 H 95 07/26/19 05:10 79 16 94 07/26/19 05:05 78 19 209/128 H 96 07/26/19 05:00 78 20 215/119 H 96 07/26/19 04:56 83 15 214/121 H 94 07/26/19 04:51 81 21 206/138 H 95 07/26/19 04:50 80 17 97 07/26/19 04:45 82 19 218/138 H 96 07/26/19 04:17 79 14 222/129 H 94 07/26/19 03:57 90 07/26/19 03:56 222/151 H 94 07/26/19 03:45 80 22 191/124 H 07/26/19 03:40 82 19 07/26/19 03:30 88 21 239/152 H 95 07/26/19 03:25 85 18 96 07/26/19 03:22 87 20 247/149 H 96 07/26/19 03:12 36.8 C 91 H 18 249/153 H 98 Laboratory Results Laboratory Results WBC 8.50 K/uL (4.8-10.8) 07/26/19 03:26 RBC 4.32 M/uL (4.2-5.4) 07/26/19 03:26 Hgb 14.6 g/dL (12.0-16.0) 07/26/19 03:26 Hct 41.4 % (37-47) 07/26/19 03:26 MCV 95.8 fL (80-100) 07/26/19 03:26 MCH 33.8 pg (25-34) 07/26/19 03:26 MCHC 35.3 g/dL (32-36) 07/26/19 03:26 RDW Std Deviation 43.2 fL (36.4-46.3) 07/26/19 03:26 RDW Coeff of Erick 12.5 % (11.5-14.5) 07/26/19 03:26 Plt Count 172 K/uL (130-400) 07/26/19 03:26 MPV 10.5 fL (7.4-10.4) H 07/26/19 03:26 Immature Gran % (Auto) 0.5 % 07/26/19 03:26 Neut % (Auto) 50.5 % 07/26/19 03:26 Lymph % (Auto) 31.6 % 07/26/19 03:26 [place] % (Auto) 8.5 % 07/26/19 03:26 Eos % (Auto) 8.5 % 07/26/19 03:26 Baso % (Auto) 0.4 % 07/26/19 03:26 Immature Gran # (Auto) 0.04 K/uL (0.00-0.02) H 07/26/19 03:26 Neut # (Auto) 4.30 K/uL (1.4-6.5) 07/26/19 03:26 Lymph # (Auto) 2.69 K/uL (1.2-3.4) 07/26/19 03:26 [place] # (Auto) 0.72 K/uL (0.11-0.59) H 07/26/19 03:26 Eos # (Auto) 0.72 K/uL (0-0.5) H 07/26/19 03:26 Baso # (Auto) 0.03 K/uL (0-0.2) 07/26/19 03:26 Sodium 143 mmol/L (136-145) 07/26/19 03:26 Potassium 3.7 mmol/L (3.5-5.1) 07/26/19 03:26 Chloride 108 mmol/L (98-107) H 07/26/19 03:26 Carbon Dioxide 23 mmol/L (21-32) 07/26/19 03:26 Anion Gap 12.0 (3-11) H 07/26/19 03:26 BUN 19 mg/dl (7-18) H 07/26/19 03:26 Creatinine 1.51 mg/dl (0.6-1.2) H 07/26/19 03:26 Est Cr Clr Drug Dosing 40.8 ml/min 07/26/19 03:26 Est GFR ( Amer) 44.9 07/26/19 03:26 Est GFR (Non-Af Amer) 38.8 07/26/19 03:26 BUN/Creatinine Ratio 12.7 (10-20) 07/26/19 03:26 Glucose 148 mg/dl (70-99) H 07/26/19 03:26 Calcium 8.9 mg/dl (8.5-10.1) 07/26/19 03:26 Magnesium 2.1 mg/dl (1.8-2.4) 07/26/19 03:26 Total Bilirubin 0.4 mg/dl (0.2-1) 07/26/19 03:26 AST 23 U/L (15-37) 07/26/19 03:26 ALT 50 U/L (12-78) 07/26/19 03:26 Alkaline Phosphatase 105 U/L (45-117) 07/26/19 03:26 Troponin I 0.196 ng/ml (0-0.045) H* 07/26/19 03:26 Total Protein 7.4 gm/dl (6.4-8.2) 07/26/19 03:26 Albumin 3.8 gm/dl (3.4-5.0) 07/26/19 03:26 Globulin 3.6 gm/dl (2.5-4.0) 07/26/19 03:26 Albumin/Globulin Ratio 1.1 (0.9-2) 07/26/19 03:26 Diagnostic Findings Chest x-ray : No congestion, cardiomegaly, pacemaker noted EKG as per my interpretation : Rate 95, paced rhythm CT head initial read no intracranial hemorrhage or acute cortical infarct. Patchy nonspecific white matter low attenuation, possible small vessel disease or other etiologies. CT abdomen pelvis: No acute process
[2019-07-26] MEDS ORDERED: LISINOPRIL 20 MG TAB PO SCH ×2 (06:40→21:00)
[2019-07-26] MEDS: METOPROLOL SUCC 50MG EXT REL TAB PO SCH ×2 (06:46→20:16)
[2019-07-26] MEDS ORDERED: FAMOTIDINE 20MG/5ML IV PUSH IV STA (06:51)
[2019-07-26] MEDS ORDERED: HydrALAZINE HCL 20 MG/ML VIAL IV STA (07:04)
--- NOTE | 2019-07-26 07:15 | CT Scan Report ---
HEAD CT NONCONTRAST CT DOSE: 537.48 mGy.cm HISTORY: hypertension, vomiting TECHNIQUE: Multiaxial CT images of the head were performed without the use of intravenous contrast. A utomated exposure control was utilized for this study. A dose lowering technique was utilized adheri ng to the principles of ALARA. Comparison: None. Findings: The paranasal sinuses and mastoid air cells are clear. The calvarium and skull base are int act. There is no mass, hematoma, midline shift, acute infarct. White matter hypodensity is nonspecifi c but suggestive of microvascular ischemic change. The ventricles and sulci demonstrate mild age-rela veronica involutional changes. Impression: No acute intracranial abnormality. Patchy white matter hypodensity is nonspecific but suggestive of m ild microvascular ischemic change. Electronically signed by: Tucker Oneill M.D. 07/26/2019 7:13 AM
--- NOTE | 2019-07-26 07:20 | CT Scan Report ---
CT abd pelvis wo con CT DOSE: 577.52 mGy.cm HISTORY: Pain abd pain TECHNIQUE: Multiaxial CT images of the abdomen and pelvis were performed without contrast. A dose lo wering technique was utilized adhering to the principles of ALARA. COMPARISON STUDY: 05/17/2007 FINDINGS: Lung bases are clear. Fatty replacement of the liver. Spleen and pancreas appear unremarkab le. Right renal cyst. No evidence for renal hydronephrosis. Nonobstructive bowel pattern. Normal appendix. Uterus is anteflexed. Bladder is midline. Small bilate ral fat-containing nonobstructive inguinal hernias. IMPRESSION: No acute process. The above report was generated using voice recognition software. It may contain grammatical, syntax or spelling errors. Electronically signed by: Binu Momin M.D. 07/26/2019 7:18 AM
[2019-07-26 07:31] LABS: Troponin I 0.305 ng/ml (0-0.045)
--- NOTE | 2019-07-26 07:59 | Critical Care Consultation ---
Date of Consultation July 26, 2019 Assessment & Plan (1) Admitted to intensive care unit: Reason Critically Ill: 53-year-old female here for hypertensive urgency. Past medical history significant for hypertension, diabetes type 2, CHF NYHA class III, coronary artery disease status post PCI, chronically elevated troponins Neuro: -CAM ICU: NEGATIVE -No concerns at present Cardiac: Hypertensive urgency: Patient presented to the [facility] in the emergency department hypertensive urgency. Reporting that her metoprolol dose was recently doubled. She attributes this to her recent elevation of blood pressure. Yesterday evening she was in her normal state of health when she went to sleep after taking her lisinopril and metoprolol. She reports waking up in the middle the night with malleus, sweaty, nauseous so she decided to go downstairs and check her blood pressure. Her blood pressure was significantly elevated to 200/100 this concerned her so she presented to them out in the emergency department for further evaluation. While in the emergency department she received 3 doses of labetalol 10 mg IV 1 inch of Nitropaste, a 500 mL fluid bolus, and a total of 12.5 mg of hydralazine. Her blood pressure has responded well since that time her most recent blood pressure at 10 AM was 167/99. -Resume home BP meds -Resumed furosemide -Consider transition to labetalol p.o. for better blood pressure management, would consider adding a different class of medication such as amlodipine -Monitor for signs and symptoms of endorgan damage that would indicate progressive hypertensive emergency -Cardiology consulted appreciate recommendations Chronically elevated troponins Patient has a history of chronically elevated troponins although she did have a slight bump today to 0.3 -Continue to trend until a peak Respiratory: -No concerns at present GI: -Heart healthy carb consistent diet GERD Patient has a history of gastroesophageal reflux treated with [id number] acid suppression medication. Her current presentation may be related to exacerbation of reflux symptoms. -Started on Protonix daily RENAL/LYTES: -No significant electrolyte derangement. -Replace lytes as needed. : - No concerns at this time. ENDO: History of diabetes type 2 Patient has a history of diabetes type 2, however the last time she was hospitalized her oral antihyperglycemic's were discontinued -Monitor blood sugars with daily BMP HEME: -Stable H&H. ID: - No concerns for infection at this point. -Monitor fever curve. INTEGUMENTARY: -No concerns at present LINES/IV ACCESS: -PIVs intact. DVT PROPHYLAXIS: -Heparin 5000 every 8 Dispo: Downgrade to telemetry versus MedSurg with telemetry Thank you for allowing us to be part of this patient's care. Please refer to Dr. Arzate's documentation for any further recommendations. Supervising Physician Co-Signing Physician Notes Patient seen and examined with resident/physician Dr. Morris at bedside. Assessment and plan were discussed with the resident and I generally agree with his note aside for any additions/exceptions that I have made: Patient had some nausea and sweating last evening and this morning. She was found to be severely hypertensive in the emergency department with initial blood pressure in the 170s systolically and then a follow-up blood pressure of 200/121. She received 3 doses of labetalol and 10 mg of IV hydralazine. Her blood pressure subsequently improved and is now in the 160s range systolically. She denies any chest pain. She denies any nausea or vomiting. Her troponin initially was 0.196 and now is 0.305. Continue to trend troponins. Likely she has some demand ischemia. She says that she has been having increased reflux after increasing her metoprolol dose. She is concerned that she had allergic reaction to her metoprolol. I think that this is unlikely at this time. We have added 5 mg of amlodipine. We have added PPI to her regimen. We have consulted cardiology for their input. She did recently have a catheterization of her heart 3 months ago with stent placement. Urine drug screen was negative. If her blood pressure continues to do well on her home p.o. antihypertensives, then she can be transferred to the floor this afternoon. History of Present Illness History of Present Illness Patient is a 53-year-old female with a past medical history significant for hypertension, diabetes type 2, CHF NYHA class III, coronary artery disease status post PCI, chronically elevated troponins who was transferred for the ICU for evaluation management of hypertensive urgency. Patient is doing well this morning in no acute distress. Patient reports that she was in her usual state of health yesterday went to sleep in the evening, and woke up sweaty and slightly nauseous. She went downstairs and checked her blood pressure to find it to be in the 200s over 100s, and presented to the [facility] emergency department for further evaluation. She attributes her recent increase in blood pressure to doubling her dose of metoprolol approximately 2 weeks ago. She is on metoprolol for arrhythmias. Otherwise patient is asymptomatic, voiding, stooling, sleeping, tolerating her diet. Patient currently is most distressed about all of the EKG leads on her body. All questions answered no acute freddie rns. Patient specifically diet denies any chest pressure, chest pain, shortness of breath, malaise, diaphoresis, nausea, or other concerning signs or symptoms of an ACS type picture. Allergies Allergy/AdvReac Type Severity Reaction Status Date / Time No Known Allergies Allergy Unknown Verified 07/26/19 03:38 Home Medications Home Medications Medication Instructions Recorded Confirmed Type atorvastatin [Lipitor] 40 mg PO DAILY 09/21/18 07/26/19 History clopidogrel 75 mg PO QAM 09/21/18 07/26/19 History furosemide 40 mg PO QAM 09/21/18 07/26/19 History lisinopril 20 mg PO BID 09/21/18 07/26/19 History potassium chloride 20 meq PO QAM 09/21/18 07/26/19 History aspirin [Aspirin Low Dose] 81 mg PO DAILY 09/23/18 07/26/19 History ezetimibe [Zetia] 10 mg PO DAILY 07/26/19 07/26/19 History metformin 500 mg PO BID 07/26/19 07/26/19 History metoprolol succinate 50 mg PO BID 07/26/19 07/26/19 History Patient History Medical History Congestive heart failure follows w/ dr. cavanaugh Diabetes mellitus, type 2 NIDDM Hyperlipidemia Hypertension Myocardial Infarction 3 [address] [facility] - cardiac cath - 1 stent placed Sleep apnea no cpap Surgical History History of cardiac cath 3 months ago - [facility] - [place] - 1 stent placed - follows jo/ dr gray History of section X2 History of heart artery stent x1 History of tooth extraction Family History Grandfather Family history of diabetes mellitus Social History Preferred Language: Maltese Communication Ability: Effective Hospital Technician Required: No Beliefs That Will Affect Care: None Current Living Situation: Spouse Other Information That Helps Us Care for You: No Feels Safe at Home: Yes Safety Concerns: Feels Safe At This Time Smoking Status: Never smoker Do You Dip or Chew Tobacco: No ; Second Hand Exposure: No ; Tobacco Cessation Education Requested by Patient: No Hx Alcohol Use: No Hx Substance Use: No Review of Systems Review of Systems: All systems reviewed & are unremarkable except as noted in HPI & below Physical Exam Physical Exam: General: No acute distress HEENT: Normocephalic atraumatic Neck: Limited due to adiposity however normal visual inspection Cardiac: Regular rate and rhythm I did not appreciate any murmurs rubs or gallops, normal S1, normal S2, negative calf tenderness, 1+ pedal edema Respiratory: Clear to auscultation bilaterally without wheezes rales or rhonchi, symmetrical chest expansion GI: Normal bowel sounds, nontender to palpation, nondistended MSK: Moves all extremities Skin: Normal visual inspection Neuro: Alert and oriented x4 Psych: Calm cooperative Results & Data Vital Signs (Past 12 Hours) Vital Signs Temp Pulse Pulse Resp BP BP Pulse Ox 07/26/19 07:33 84 18 182/108 H 96 07/26/19 07:23 78 20 200/121 H 96 07/26/19 06:01 77 21 172/110 H 07/26/19 06:00 79 22 07/26/19 05:51 77 18 195/133 H 07/26/19 05:50 75 17 07/26/19 05:48 78 19 220/110 H 07/26/19 05:41 78 19 221/122 H 07/26/19 05:40 79 20 07/26/19 05:30 77 15 94 07/26/19 05:20 80 18 193/126 H 92 07/26/19 05:11 77 19 186/139 H 95 07/26/19 05:10 79 16 94 07/26/19 05:05 78 19 209/128 H 96 07/26/19 05:00 78 20 215/119 H 96 07/26/19 04:56 83 15 214/121 H 94 07/26/19 04:51 81 21 206/138 H 95 07/26/19 04:50 80 17 97 07/26/19 04:45 82 19 218/138 H 96 07/26/19 04:17 79 14 222/129 H 94 07/26/19 03:57 90 07/26/19 03:56 222/151 H 94 07/26/19 03:45 80 22 191/124 H 07/26/19 03:40 82 19 07/26/19 03:30 88 21 239/152 H 95 07/26/19 03:25 85 18 96 07/26/19 03:22 87 20 247/149 H 96 07/26/19 03:12 36.8 C 91 H 18 249/153 H 98 Laboratory Results 07/26/19 07/26/19 07/26/19 Range/Units 06:52 03:26 03:26 WBC (4.8-10.8) K/uL RBC (4.2-5.4) M/uL Hgb (12.0-16.0) g/dL Hct (37-47) % MCV (80-100) fL MCH (25-34) pg MCHC (32-36) g/dL RDW Std Deviation (36.4-46.3) fL RDW Coeff of Erick (11.5-14.5) % Plt Count (130-400) K/uL MPV (7.4-10.4) fL Immature Gran % (Auto) % Neut % (Auto) % Lymph % (Auto) % Carbon % (Auto) % Eos % (Auto) % Baso % (Auto) % Immature Gran # (Auto) (0.00-0.02) K/uL Neut # (Auto) (1.4-6.5) K/uL Lymph # (Auto) (1.2-3.4) K/uL Carbon # (Auto) (0.11-0.59) K/uL Eos # (Auto) (0-0.5) K/uL Baso # (Auto) (0-0.2) K/uL APTT (21.0-31.0) Seconds PTT Ratio Sodium (136-145) mmol/L Potassium (3.5-5.1) mmol/L Chloride (98-107) mmol/L Carbon Dioxide (21-32) mmol/L Anion Gap (3-11) BUN (7-18) mg/dl Creatinine (0.6-1.2) mg/dl Est Cr Clr Drug Dosing ml/min Est GFR ( Amer) Est GFR (Non-Af Amer) BUN/Creatinine Ratio (10-20) Glucose (70-99) mg/dl Estimat Average Glucose Pending Hemoglobin A1c Pending Calcium (8.5-10.1) mg/dl Magnesium (1.8-2.4) mg/dl Total Bilirubin (0.2-1) mg/dl AST (15-37) U/L ALT (12-78) U/L Alkaline Phosphatase (45-117) U/L Troponin I 0.305 H* (0-0.045) ng/ml Total Protein (6.4-8.2) gm/dl Albumin (3.4-5.0) gm/dl Globulin (2.5-4.0) gm/dl Albumin/Globulin Ratio (0.9-2) Lipase 181 (73-393) U/L TSH 1.550 (0.300-4.500) uIu/ml 07/26/19 07/26/19 07/26/19 Range/Units 03:26 03:26 03:26 WBC 8.50 (4.8-10.8) K/uL RBC 4.32 (4.2-5.4) M/uL Hgb 14.6 (12.0-16.0) g/dL Hct 41.4 (37-47) % MCV 95.8 (80-100) fL MCH 33.8 (25-34) pg MCHC 35.3 (32-36) g/dL RDW Std Deviation 43.2 (36.4-46.3) fL RDW Coeff of Erick 12.5 (11.5-14.5) % Plt Count 172 (130-400) K/uL MPV 10.5 H (7.4-10.4) fL Immature Gran % (Auto) 0.5 % Neut % (Auto) 50.5 % Lymph % (Auto) 31.6 % Carbon % (Auto) 8.5 % Eos % (Auto) 8.5 % Baso % (Auto) 0.4 % Immature Gran # (Auto) 0.04 H (0.00-0.02) K/uL Neut # (Auto) 4.30 (1.4-6.5) K/uL Lymph # (Auto) 2.69 (1.2-3.4) K/uL Carbon # (Auto) 0.72 H (0.11-0.59) K/uL Eos # (Auto) 0.72 H (0-0.5) K/uL Baso # (Auto) 0.03 (0-0.2) K/uL APTT 23.4 (21.0-31.0) Seconds PTT Ratio 0.9 Sodium 143 (136-145) mmol/L Potassium 3.7 (3.5-5.1) mmol/L Chloride 108 H (98-107) mmol/L Carbon Dioxide 23 (21-32) mmol/L Anion Gap 12.0 H (3-11) BUN 19 H (7-18) mg/dl Creatinine 1.51 H (0.6-1.2) mg/dl Est Cr Clr Drug Dosing 40.8 ml/min Est GFR ( Amer) 44.9 Est GFR (Non-Af Amer) 38.8 BUN/Creatinine Ratio 12.7 (10-20) Glucose 148 H (70-99) mg/dl Estimat Average Glucose Hemoglobin A1c Calcium 8.9 (8.5-10.1) mg/dl Magnesium 2.1 (1.8-2.4) mg/dl Total Bilirubin 0.4 (0.2-1) mg/dl AST 23 (15-37) U/L ALT 50 (12-78) U/L Alkaline Phosphatase 105 (45-117) U/L Troponin I 0.196 H* (0-0.045) ng/ml Total Protein 7.4 (6.4-8.2) gm/dl Albumin 3.8 (3.4-5.0) gm/dl Globulin 3.6 (2.5-4.0) gm/dl Albumin/Globulin Ratio 1.1 (0.9-2) Lipase (73-393) U/L TSH (0.300-4.500) uIu/ml Medications Administered Current Inpatient Medications Lisinopril (Zestril) 20 mg PO QAM COUNT INCLUDES THE [facility] Stop: 08/25/19 06:39 Last Admin: 07/26/19 06:58 Dose: 20 mg Documented by: Metoprolol Succinate (Toprol Xl) 50 mg PO BID COUNT INCLUDES THE [facility] Stop: 08/25/19 05:59 Last Admin: 07/26/19 06:46 Dose: Not Given Documented by: PG Care Time/CCT Total # of Minutes Spent Total Time Spent with Patient: Total time spent is greater than 50% in coordination of care (as documented) at patient's floor/unit and/or counseling patient:40min Resident Activity Tracking Resident Involvement: Resident Care Provided Care Provided: Adult Hospital Medicine (ICU: HTN, CHF)
[2019-07-26] MEDS ORDERED: POTASSIUM CHLORIDE 20 MEQ TABCR PO STA (08:08)
[2019-07-26] MEDS ORDERED: TRAMADOL HCL 50 MG TABLET PO PRN (08:08)
[2019-07-26] MEDS ORDERED: ICU PROTOCOL FOR HYPERGLYCEMIA PRN (08:08)
[2019-07-26] MEDS ORDERED: PROMETHAZINE HCL 12.5 MG in SODIUM CHLORIDE 0.9% 50 ML IV PRN (08:08)
[2019-07-26] MEDS ORDERED: ACETAMINOPHEN 325 MG TAB PO PRN (08:08)
[2019-07-26 08:16] LABS: Estimated Average Glucose 126 mg/dl
[2019-07-26] MEDS ORDERED: SODIUM CHLOR 0.45% + 20MEQ KCL 20 MEQ/1,000 ML BAG IV SCH (08:30)
[2019-07-26] MEDS: CLOPIDOGREL BISULFATE 75 MG TAB PO SCH (08:40)
[2019-07-26] MEDS: ASPIRIN 81 MG ECTAB PO SCH (08:40)
[2019-07-26] MEDS: ATORVASTATIN 40 MG TAB PO SCH (08:40)
[2019-07-26] MEDS ORDERED: PANTOprazole 40 MG TAB PO SCH ×2 (09:00→10:30)
[2019-07-26 10:11] LABS: Amphetamines+Metham, Urine Neg (Neg); Barbiturates, Urine Neg (Neg); Benzodiazepine, Urine Neg (Neg); Cocaine, Urine Neg (Neg); MDMA (Ecstacy), Urine Neg (Neg); Methadone, Urine Neg (Neg); Opiate, Urine Neg (Neg); Phencyclidine, Urine Neg (Neg)
--- NOTE | 2019-07-26 12:07 | Cardiology Consultation ---
Date of Consultation July 26, 2019 Assessment & Plan (1) Hypertensive crisis: (2) LBBB (left bundle branch block): (3) Chronic systolic CHF (congestive heart failure), NYHA class 3: (4) Ischemic cardiomyopathy: The patient's troponin elevation is due to demand ischemia. She had hype rtensive crisis which has improved with medications. I do not believe that the switch from carvedilol to metoprolol resulted in her hypertension. She may have become nauseated and sick from the chocolate milk that she drank before going to bed and resulted in anxiety and stress with resultant hypertension. In any case, her blood pressure is better controlled and I believe she can be moved from the ICU. We will continue to monitor her blood pressure during her hospital admission. No additional cardiac work-up or testing is planned at this time. History of Present Illness Attending Physician: Jarocho Armenta MD History of Present Illness This is a 53-year-old female with a history of a dilated cardiomyopathy. Her estimated left ventricular ejection fraction is 20%. She does have a history of known hypertension which at times is labile. She has a history of ischemic heart disease with previous coronary intervention. She has a left bundle branch block and is status post biventricular pacemaker which was recently updated. She was having frequent PVCs. She was on a large dose of carvedilol and this medication was switched to metoprolol. This was approximately 2 weeks ago. The patient was scheduled for an EP procedure and possible ablation to reduce her PVC burden but that procedure was never completed. The patient was doing well. She went to bed last night after drinking chocolate milk. She awoke in the middle the night nauseated and mildly diaphoretic. She took her blood pressure with her own kit and noted that it was markedly elevated and came to the emergency department. The patient has been treated with labetalol and hydralazine. She has been restarted on her home medications and just now received a dose of Norvasc. She has no complaints today. Past medical history: 1. Prior history of dilated cardiomyopathy felt to be hypertension induced with past EF of 20%. 2. Longstanding labile hypertension 3. Admission to [facility] in June 2018 with acute decompensated systolic heart failure and hypertensive urgency. 4. Diagnostic cardiac catheterization in June 2018, performed due to new left bundle branch block, revealed a 70% mid LAD stenosis for which she underwent PCI with a drug-eluting stent. 5. Ischemic cardiomyopathy. EF 25-29%. 6. Chronic systolic heart failure, [place] [employer] Association class 3 7. Status post September 23, 2018 biventricular pacemaker defibrillator implantation 8. Frequent PVCs causing decline in effective Bi-V pacing 9. Hyperlipidemia 10. Family history of CAD. Allergies Allergy/AdvReac Type Severity Reaction Status Date / Time No Known Allergies Allergy Unknown Verified 07/26/19 03:38 Home Medications Home Medications Medication Instructions Recorded Confirmed Type atorvastatin [Lipitor] 40 mg PO DAILY 09/21/18 07/26/19 History clopidogrel 75 mg PO QAM 09/21/18 07/26/19 History furosemide 40 mg PO QAM 09/21/18 07/26/19 History lisinopril 20 mg PO BID 09/21/18 07/26/19 History potassium chloride 20 meq PO QAM 09/21/18 07/26/19 History aspirin [Aspirin Low Dose] 81 mg PO DAILY 09/23/18 07/26/19 History ezetimibe [Zetia] 10 mg PO DAILY 07/26/19 07/26/19 History metformin 500 mg PO BID 07/26/19 07/26/19 History metoprolol succinate 50 mg PO BID 07/26/19 07/26/19 History Patient History Medical History Congestive heart failure follows w/ dr. cavanaugh Diabetes mellitus, type 2 NIDDM Hyperlipidemia Hypertension Myocardial Infarction 3 months ago - [facility] - cardiac cath - 1 stent placed Sleep apnea no cpap Surgical History History of cardiac cath 3 months ago - [facility] - [place] - 1 stent placed - follows w/ dr gray History of section X2 History of heart artery stent x1 History of tooth extraction Family History Grandfather Family history of diabetes mellitus Social History Preferred Language: Sinhala Communication Ability: Effective Agent Licensing Clerk Required: No Beliefs That Will Affect Care: None Current Living Situation: Spouse Other Information That Helps Us Care for You: No Feels Safe at Home: Yes Safety Concerns: Feels Safe At This Time Smoking Status: Never smoker Do You Dip or Chew Tobacco: No ; Second Hand Exposure: No ; Tobacco Cessation Education Requested by Patient: No Hx Alcohol Use: No Hx Substance Use: No Review of Systems Review of Systems: All systems reviewed & are unremarkable except as noted in HPI & below Nothing additional. Physical Exam Physical Exam: General: no acute distress and stated age Head: normocephalic, no masses, lesions, tenderness or abnormalities Eyes: conjunctiva are pink and non-injected, sclera clear Neck: supple, no adenopathy, no bruits, normal jugular venous pulse, no hepatojugular reflux Chest: normal shape and normal respiratory effort Lungs: clear to auscultation and percussion Cardiac Exam: - regular rate & rhythm, no murmurs gallops or rubs - normal S1, normal S2 Pulses: 2(+) throughout Abdomen: abdomen soft, non-tender, no abnormal masses and no hepatosplenomegaly Musculoskeletal: no gait disturbance, no joint inflammation, no deforming arthritis Extremities: no edema and no cyanosis Neuro: grossly normal exam Results & Data Vital Signs (Past 12 Hours) Vital Signs Temp Pulse Pulse Resp BP BP Pulse Ox 07/26/19 10:00 91 H 18 167/99 H 97 07/26/19 09:00 84 18 177/99 H 98 07/26/19 08:30 84 18 152/99 H 99 07/26/19 07:45 36.7 C 88 18 151/109 H 99 07/26/19 07:33 84 18 182/108 H 96 07/26/19 07:23 78 20 200/121 H 96 07/26/19 06:01 77 21 172/110 H 07/26/19 06:00 79 22 07/26/19 05:51 77 18 195/133 H 07/26/19 05:50 75 17 07/26/19 05:48 78 19 220/110 H 07/26/19 05:41 78 19 221/122 H 07/26/19 05:40 79 20 07/26/19 05:30 77 15 94 07/26/19 05:20 80 18 193/126 H 92 07/26/19 05:11 77 19 186/139 H 95 07/26/19 05:10 79 16 94 07/26/19 05:05 78 19 209/128 H 96 07/26/19 05:00 78 20 215/119 H 96 07/26/19 04:56 83 15 214/121 H 94 07/26/19 04:51 81 21 206/138 H 95 07/26/19 04:50 80 17 97 07/26/19 04:45 82 19 218/138 H 96 07/26/19 04:17 79 14 222/129 H 94 07/26/19 03:57 90 07/26/19 03:56 222/151 H 94 07/26/19 03:45 80 22 191/124 H 07/26/19 03:40 82 19 07/26/19 03:30 88 21 239/152 H 95 07/26/19 03:25 85 18 96 07/26/19 03:22 87 20 247/149 H 96 07/26/19 03:12 36.8 C 91 H 18 249/153 H 98 Laboratory Results Laboratory Results - last 24 hr 07/26/19 07/26/19 07/26/19 03:26 03:26 03:26 WBC 8.50 RBC 4.32 Hgb 14.6 Hct 41.4 MCV 95.8 MCH 33.8 MCHC 35.3 RDW Std Deviation 43.2 RDW Coeff of Erick 12.5 Plt Count 172 MPV 10.5 H Immature Gran % (Auto) 0.5 Neut % (Auto) 50.5 Lymph % (Auto) 31.6 Dukes % (Auto) 8.5 Eos % (Auto) 8.5 Baso % (Auto) 0.4 Immature Gran # (Auto) 0.04 H Neut # (Auto) 4.30 Lymph # (Auto) 2.69 Dukes # (Auto) 0.72 H Eos # (Auto) 0.72 H Baso # (Auto) 0.03 APTT 23.4 PTT Ratio 0.9 Sodium 143 Potassium 3.7 Chloride 108 H Carbon Dioxide 23 Anion Gap 12.0 H BUN 19 H Creatinine 1.51 H Est Cr Clr Drug Dosing 40.8 Est GFR ( Amer) 44.9 Est GFR (Non-Af Amer) 38.8 BUN/Creatinine Ratio 12.7 Glucose 148 H POC Glucose Estimat Average Glucose Hemoglobin A1c Calcium 8.9 Magnesium 2.1 Total Bilirubin 0.4 AST 23 ALT 50 Alkaline Phosphatase 105 Troponin I 0.196 H* Total Protein 7.4 Albumin 3.8 Globulin 3.6 Albumin/Globulin Ratio 1.1 Lipase TSH Nasal Screen MRSA (PCR) Urine Opiates Screen Ur Methadone, Qual Urine Barbiturates Ur Phencyclidine (PCP) U Amphetamin/Meth Scrn MDMA (Ecstasy) Screen U Benzodiazepines Scrn Ur Cocaine Metabolite U Marijuana (THC) Screen 07/26/19 07/26/19 07/26/19 03:26 03:26 06:52 WBC RBC Hgb Hct MCV MCH MCHC RDW Std Deviation RDW Coeff of Erick Plt Count MPV Immature Gran % (Auto) Neut % (Auto) Lymph % (Auto) Dukes % (Auto) Eos % (Auto) Baso % (Auto) Immature Gran # (Auto) Neut # (Auto) Lymph # (Auto) Dukes # (Auto) Eos # (Auto) Baso # (Auto) APTT PTT Ratio Sodium Potassium Chloride Carbon Dioxide Anion Gap BUN Creatinine Est Cr Clr Drug Dosing Est GFR ( Amer) Est GFR (Non-Af Amer) BUN/Creatinine Ratio Glucose POC Glucose Estimat Average Glucose 126 Hemoglobin A1c 6.0 H Calcium Magnesium Total Bilirubin AST ALT Alkaline Phosphatase Troponin I 0.305 H* Total Protein Albumin Globulin Albumin/Globulin Ratio Lipase 181 TSH 1.550 Nasal Screen MRSA (PCR) Urine Opiates Screen Ur Methadone, Qual Urine Barbiturates Ur Phencyclidine (PCP) U Amphetamin/Meth Scrn MDMA (Ecstasy) Screen U Benzodiazepines Scrn Ur Cocaine Metabolite U Marijuana (THC) Screen 07/26/19 07/26/19 07/26/19 08:00 09:36 11:49 WBC RBC Hgb Hct MCV MCH MCHC RDW Std Deviation RDW Coeff of Erick Plt Count MPV Immature Gran % (Auto) Neut % (Auto) Lymph % (Auto) Dukes % (Auto) Eos % (Auto) Baso % (Auto) Immature Gran # (Auto) Neut # (Auto) Lymph # (Auto) Dukes # (Auto) Eos # (Auto) Baso # (Auto) APTT PTT Ratio Sodium Potassium Chloride Carbon Dioxide Anion Gap BUN Creatinine Est Cr Clr Drug Dosing Est GFR ( Amer) Est GFR (Non-Af Amer) BUN/Creatinine Ratio Glucose POC Glucose Estimat Average Glucose Hemoglobin A1c Calcium Magnesium Total Bilirubin AST ALT Alkaline Phosphatase Troponin I 0.412 H* Total Protein Albumin Globulin Albumin/Globulin Ratio Lipase TSH Nasal Screen MRSA (PCR) Negative Urine Opiates Screen Neg Ur Methadone, Qual Neg Urine Barbiturates Neg Ur Phencyclidine (PCP) Neg U Amphetamin/Meth Scrn Neg MDMA (Ecstasy) Screen Neg U Benzodiazepines Scrn Neg Ur Cocaine Metabolite Neg U Marijuana (THC) Screen Neg 07/26/19 11:57 WBC RBC Hgb Hct MCV MCH MCHC RDW Std Deviation RDW Coeff of Erick Plt Count MPV Immature Gran % (Auto) Neut % (Auto) Lymph % (Auto) Dukes % (Auto) Eos % (Auto) Baso % (Auto) Immature Gran # (Auto) Neut # (Auto) Lymph # (Auto) Dukes # (Auto) Eos # (Auto) Baso # (Auto) APTT PTT Ratio Sodium Potassium Chloride Carbon Dioxide Anion Gap BUN Creatinine Est Cr Clr Drug Dosing Est GFR ( Amer) Est GFR (Non-Af Amer) BUN/Creatinine Ratio Glucose POC Glucose 162 H Estimat Average Glucose Hemoglobin A1c Calcium Magnesium Total Bilirubin AST ALT Alkaline Phosphatase Troponin I Total Protein Albumin Globulin Albumin/Globulin Ratio Lipase TSH Nasal Screen MRSA (PCR) Urine Opiates Screen Ur Methadone, Qual Urine Barbiturates Ur Phencyclidine (PCP) U Amphetamin/Meth Scrn MDMA (Ecstasy) Screen U Benzodiazepines Scrn Ur Cocaine Metabolite U Marijuana (THC) Screen Medications Administered Current Inpatient Medications Acetaminophen (Tylenol) 650 mg PO Q6H PRN PRN Reason: Fever Stop: 08/25/19 08:07 Amlodipine Besylate (Norvasc) 5 mg PO QAM [facility] Stop: 08/26/19 08:59 Aspirin (Ecotrin Ectab) 81 mg PO DAILY [facility] Stop: 08/25/19 08:59 Last Admin: 07/26/19 08:40 Dose: 81 mg Documented by: Atorvastatin Calcium (Lipitor) 40 mg PO DAILY [facility] Stop: 08/25/19 08:59 Last Admin: 07/26/19 08:40 Dose: 40 mg Documented by: Clopidogrel Bisulfate (Plavix) 75 mg PO QAM [facility] Stop: 08/25/19 08:59 Last Admin: 07/26/19 08:40 Dose: 75 mg Documented by: Furosemide (Lasix) 40 mg PO DAILY [facility] Stop: 08/26/19 08:59 Heparin Sodium (Porcine) (Heparin Sodium (Porcine)) 5,000 units SQ Q8 [facility] Stop: 08/25/19 13:59 Promethazine HCl 12.5 mg/ (Sodium Chloride) 50.5 mls @ 202 mls/hr IV Q6H PRN PRN Reason: Nausea And Vomiting Stop: 08/25/19 08:07 Lisinopril (Zestril) 20 mg PO QAM [facility] Stop: 08/25/19 06:39 Last Admin: 07/26/19 06:58 Dose: 20 mg Documented by: Metoprolol Succinate (Toprol Xl) 50 mg PO BID [facility] Stop: 08/25/19 05:59 Last Admin: 07/26/19 06:46 Dose: Not Given Documented by: Miscellaneous (Icu Protocol For Hyperglycemia) 1 ea N/A PRN PRN; Protocol PRN Reason: Hyperglycemia Protocol Stop: 07/28/19 08:07 Pantoprazole Sodium (Protonix) 40 mg PO DAILY [facility] Stop: 08/25/19 08:59 Last Admin: 07/26/19 08:40 Dose: 40 mg Documented by: Tramadol HCl (Ultram) 25 mg PO Q4H PRN PRN Reason: Pain Stop: 08/25/19 08:07
[2019-07-26] MEDS ORDERED: HydrALAZINE HCL 20 MG/ML VIAL IV ONE (12:16)
[2019-07-26] MEDS ORDERED: AMLODIPINE BESYLATE 5 MG TAB PO ONE (12:16)
[2019-07-26] MEDS: HEPARIN SOD 5,000 UNIT/0.5 ML VIAL SQ SCH ×2 (13:30→21:01)
--- NOTE | 2019-07-26 14:37 | Hospitalist Progress Note ---
Date of Service July 26, 2019 Assessment & Plan (1) Hypertensive crisis: Hypertensive Crisis CT head:No acute intracranial abnormality. Patchy white matter hypodensity is nonspecific but suggestive of mild microvascular ischemic change. BP improved with medications: IV hydralazine, labetalol Asymptomatic currently H/O labile hypertension as per records Continue metoprolol, lisinopril Added amlodipine 5 mg daily Also on Lasix 40 mg daily Appreciate cardiology/critical care input Monitor blood pressure Troponin elevation Likely demand ischemia secondary to uncontrolled hypertension, renal insufficiency Also noted chronic troponin elevation Denies any chest pain, shortness of breath Appreciate cardiology input No additional cardiac work-up planned for now Chronic systolic heart failure H/O Ischemic cardiomyopathy S/P ICD, Stent CXR: Negative chest. No signs of exacerbation Continue home diuretics Monitor volume status H/O CAD S/P stent H/O LBBB Continue aspirin, Plavix, metoprolol, Statin Hyperlipidemia on statin CKD II Baseline creatinine ~ 1.5 Creatinine at baseline Monitor renal function Avoid nephrotoxic agents as able Prediabetes Hb A1C: 6.0 [employer] on dietary changes GERD Started on PPI DVT Px: Heparin SQ Code Status Full code Disposition: Expect to discharge Home when stable Subjective Patient is seen and examined at bedside States feeling better currently Denies any chest pain, SOB, dizziness, nausea, abdominal pain, Headache, change in vision Family at bedside Blood pressure improved Appreciate cardiology input Review of Systems Review of Systems: All systems reviewed & are unremarkable except as noted in HPI & below Physical Exam Physical Exam: Physical Exam: Vitals signs as noted above General Appearance:Moderately built and nourished, no apparent distress Head: normocephalic, Atraumatic Eyes: normal inspection, EOMI Neck: supple, Trachea midline Respiratory/Chest: Normal breath sounds, CTA,+Pacemaker Cardiovascular: S1, S2, No murmur Abdomen/GI:Soft, Non tender, Bowel sounds present Extremities/Musculoskelatal:normal inspection, Trace edema Neurologic/Psych:AAOX3, grossly no focal neurological deficits Skin: normal color, warm Results & Data Vital Signs (Past 12 Hours) Vital Signs Temp Pulse Pulse Resp BP BP Pulse Ox 07/26/19 13:00 96 H 18 143/88 H 97 07/26/19 12:00 36.7 C 93 H 18 150/109 H 97 07/26/19 11:00 89 16 164/95 H 98 07/26/19 10:00 91 H 18 167/99 H 97 07/26/19 09:00 84 18 177/99 H 98 07/26/19 08:30 84 18 152/99 H 99 07/26/19 07:45 36.7 C 88 18 151/109 H 99 07/26/19 07:33 84 18 182/108 H 96 07/26/19 07:23 78 20 200/121 H 96 07/26/19 06:01 77 21 172/110 H 07/26/19 06:00 79 22 07/26/19 05:51 77 18 195/133 H 07/26/19 05:50 75 17 07/26/19 05:48 78 19 220/110 H 07/26/19 05:41 78 19 221/122 H 07/26/19 05:40 79 20 07/26/19 05:30 77 15 94 07/26/19 05:20 80 18 193/126 H 92 07/26/19 05:11 77 19 186/139 H 95 07/26/19 05:10 79 16 94 07/26/19 05:05 78 19 209/128 H 96 07/26/19 05:00 78 20 215/119 H 96 07/26/19 04:56 83 15 214/121 H 94 07/26/19 04:51 81 21 206/138 H 95 07/26/19 04:50 80 17 97 07/26/19 04:45 82 19 218/138 H 96 07/26/19 04:17 79 14 222/129 H 94 07/26/19 03:57 90 07/26/19 03:56 222/151 H 94 07/26/19 03:45 80 22 191/124 H 07/26/19 03:40 82 19 07/26/19 03:30 88 21 239/152 H 95 07/26/19 03:25 85 18 96 07/26/19 03:22 87 20 247/149 H 96 07/26/19 03:12 36.8 C 91 H 18 249/153 H 98 Laboratory Results Short CBC 07/26/19 Range/Units 03:26 WBC 8.50 (4.8-10.8) K/uL Hgb 14.6 (12.0-16.0) g/dL Hct 41.4 (37-47) % Plt Count 172 (130-400) K/uL BMP 07/26/19 03:26 Sodium 143 Potassium 3.7 Chloride 108 H Carbon Dioxide 23 BUN 19 H Creatinine 1.51 H Glucose 148 H Calcium 8.9 Cardiac Enzymes 07/26/19 07/26/19 07/26/19 Range/Units 03:26 06:52 11:49 Troponin I 0.196 H* 0.305 H* 0.412 H* (0-0.045) ng/ml Liver Function 07/26/19 Range/Units 03:26 Total Bilirubin 0.4 (0.2-1) mg/dl AST 23 (15-37) U/L ALT 50 (12-78) U/L Alkaline Phosphatase 105 (45-117) U/L Albumin 3.8 (3.4-5.0) gm/dl
[2019-07-27] MEDS ORDERED: METOPROLOL TARTRATE 25 MG TAB PO STA (00:46)
[2019-07-27] MEDS: HEPARIN SOD 5,000 UNIT/0.5 ML VIAL SQ SCH ×2 (05:00→13:07)
[2019-07-27] MEDS ORDERED: METOPROLOL SUCC 50MG EXT REL TAB PO SCH ×2 (05:00→09:00)
[2019-07-27] MEDS ORDERED: AMLODIPINE BESYLATE 5 MG TAB PO SCH ×2 (05:15→09:00)
[2019-07-27] MEDS ORDERED: PANTOprazole 40 MG TAB PO SCH (05:15)
[2019-07-27 06:15] LABS: Basophils # (auto) 0.02 K/uL (0-0.2); Basophils % (auto) 0.2 %; Eosinophils # (auto) 0.42 K/uL (0-0.5); Eosinophils % (auto) 4.4 %; Hematocrit (blood only) 42.2 % (37-47); Hemoglobin 14.6 g/dL (12.0-16.0); Immature Granulocytes # (auto) 0.03 K/uL (0.00-0.02); Immature Granulocytes % (auto) 0.3 %; Lymphocytes # (auto) 2.04 K/uL (1.2-3.4); Lymphocytes % (auto) 21.1 %; Mean Corpuscular Hgb Conc 34.6 g/dL (32-36); Mean Corpuscular Volume 95.9 fL (80-100); Mean Platelet Volume 10.7 fL (7.4-10.4); Monocytes # (auto) 0.97 K/uL (0.11-0.59); Monocytes % (auto) 10.1 %; Neutrophils # (auto) 6.17 K/uL (1.4-6.5); Neutrophils % (auto) 63.9 %; Platelet Count 176 K/uL (130-400); RDW Standard Deviation 45.2 fL (36.4-46.3); White Blood Count 9.65 K/uL (4.8-10.8)
[2019-07-27 06:43] LABS: Calcium 9.3 mg/dl (8.5-10.1); Creatinine Clr Calc Pharmacy 41.7 ml/min; Est GFR (Non-African American) 39.7; Potassium 4.1 mmol/L (3.5-5.1)
[2019-07-27] MEDS ORDERED: HydrALAZINE HCL 20 MG/ML VIAL IV ONE (06:46)
[2019-07-27] MEDS ORDERED: LISINOPRIL 20 MG TAB PO SCH ×2 (07:00→09:00)
[2019-07-27] MEDS: ATORVASTATIN 40 MG TAB PO SCH (08:38)
[2019-07-27] MEDS: CLOPIDOGREL BISULFATE 75 MG TAB PO SCH (08:38)
[2019-07-27] MEDS: ASPIRIN 81 MG ECTAB PO SCH (08:38)
[2019-07-27] MEDS ORDERED: POTASSIUM CHLORIDE 20 MEQ TABCR PO SCH (09:00)
[2019-07-27] MEDS ORDERED: EZETIMIBE 10 MG TABLET PO SCH (09:00)
[2019-07-27] MEDS ORDERED: FUROSEMIDE 40 MG TAB PO SCH (09:00)
--- NOTE | 2019-07-27 11:50 | Cardiology Progress Note ---
Date of Service July 27, 2019 Assessment & Plan (1) Hypertensive crisis: (2) LBBB (left bundle branch block): (3) Chronic systolic CHF (congestive heart failure), NYHA class 3: (4) Ischemic cardiomyopathy: The patient's blood pressure is adequately controlled. I would continue her current medications and I believe we can treat her as an outpatient. I will arrange follow-up with our group. Subjective The patient has no new cardiac complaints. She is anxious to return home. Review of Systems Review of Systems: All systems reviewed & are unremarkable except as noted in HPI & below Nothing additional to add. Physical Exam Physical Exam: General: no acute distress and stated age Head: normocephalic, no masses, lesions, tenderness or abnormalities Eyes: conjunctiva are pink and non-injected, sclera clear Neck: supple, no adenopathy, no bruits, normal jugular venous pulse, no hepatojugular reflux Chest: normal shape and normal respiratory effort Lungs: clear to auscultation and percussion Cardiac Exam: - regular rate & rhythm, no murmurs gallops or rubs - normal S1, normal S2 Pulses: 2(+) throughout Abdomen: abdomen soft, non-tender, no abnormal masses and no hepatosplenomegaly Musculoskeletal: no gait disturbance, no joint inflammation, no deforming arthritis Extremities: no edema and no cyanosis Neuro: grossly normal exam Results & Data Vital Signs (Past 12 Hours) Vital Signs Temp Pulse Pulse Resp BP BP Pulse Ox 07/27/19 11:00 36.8 C 18 141/92 H 97 07/27/19 07:20 93 H 103/83 07/27/19 07:00 84 07/27/19 06:45 184/116 H 190/114 H 07/27/19 06:37 36.7 C 86 21 204/141 H 192/102 H 98 07/27/19 04:58 175/118 H 07/27/19 04:00 37.3 C 92 H 21 169/101 H 95 07/27/19 00:15 177/99 H Laboratory Results Laboratory Results - last 24 hr 07/26/19 07/26/19 07/26/19 11:49 11:57 16:18 WBC RBC Hgb Hct MCV MCH MCHC RDW Std Deviation RDW Coeff of Erick Plt Count MPV Immature Gran % (Auto) Neut % (Auto) Lymph % (Auto) Williamson % (Auto) Eos % (Auto) Baso % (Auto) Immature Gran # (Auto) Neut # (Auto) Lymph # (Auto) Williamson # (Auto) Eos # (Auto) Baso # (Auto) Sodium Potassium Chloride Carbon Dioxide Anion Gap BUN Creatinine Est Cr Clr Drug Dosing Est GFR ( Amer) Est GFR (Non-Af Amer) BUN/Creatinine Ratio Glucose POC Glucose 162 H 104 H Calcium Magnesium Troponin I 0.412 H* 07/26/19 07/27/19 07/27/19 20:34 05:33 05:33 WBC 9.65 RBC 4.40 Hgb 14.6 Hct 42.2 MCV 95.9 MCH 33.2 MCHC 34.6 RDW Std Deviation 45.2 RDW Coeff of Erick 13.0 Plt Count 176 MPV 10.7 H Immature Gran % (Auto) 0.3 Neut % (Auto) 63.9 Lymph % (Auto) 21.1 Williamson % (Auto) 10.1 Eos % (Auto) 4.4 Baso % (Auto) 0.2 Immature Gran # (Auto) 0.03 H Neut # (Auto) 6.17 Lymph # (Auto) 2.04 Williamson # (Auto) 0.97 H Eos # (Auto) 0.42 Baso # (Auto) 0.02 Sodium 139 Potassium 4.1 Chloride 105 Carbon Dioxide 24 Anion Gap 10.0 BUN 21 H Creatinine 1.48 H Est Cr Clr Drug Dosing 41.7 Est GFR ( Amer) 46.0 Est GFR (Non-Af Amer) 39.7 BUN/Creatinine Ratio 14.0 Glucose 123 H POC Glucose 120 H Calcium 9.3 Magnesium 2.0 Troponin I 07/27/19 07:36 WBC RBC Hgb Hct MCV MCH MCHC RDW Std Deviation RDW Coeff of Erick Plt Count MPV Immature Gran % (Auto) Neut % (Auto) Lymph % (Auto) Williamson % (Auto) Eos % (Auto) Baso % (Auto) Immature Gran # (Auto) Neut # (Auto) Lymph # (Auto) Williamson # (Auto) Eos # (Auto) Baso # (Auto) Sodium Potassium Chloride Carbon Dioxide Anion Gap BUN Creatinine Est Cr Clr Drug Dosing Est GFR ( Amer) Est GFR (Non-Af Amer) BUN/Creatinine Ratio Glucose POC Glucose 121 H Calcium Magnesium Troponin I Medications Administered Current Inpatient Medications Acetaminophen (Tylenol) 650 mg PO Q6H PRN PRN Reason: Fever Stop: 08/25/19 08:07 Amlodipine Besylate (Norvasc) 5 mg PO QAM [facility] Stop: 08/26/19 05:14 Last Admin: 07/27/19 05:24 Dose: 5 mg Documented by: Aspirin (Ecotrin Ectab) 81 mg PO DAILY [facility] Stop: 08/25/19 08:59 Last Admin: 07/27/19 08:38 Dose: 81 mg Documented by: Atorvastatin Calcium (Lipitor) 40 mg PO DAILY [facility] Stop: 08/25/19 08:59 Last Admin: 07/27/19 08:38 Dose: 40 mg Documented by: Clopidogrel Bisulfate (Plavix) 75 mg PO QAM [facility] Stop: 08/25/19 08:59 Last Admin: 07/27/19 08:38 Dose: 75 mg Documented by: Ezetimibe (Zetia) 10 mg PO DAILY [facility] Stop: 08/26/19 08:59 Last Admin: 07/27/19 08:37 Dose: 10 mg Documented by: Furosemide (Lasix) 40 mg PO DAILY [facility] Stop: 08/26/19 08:59 Last Admin: 07/27/19 08:38 Dose: 40 mg Documented by: Heparin Sodium (Porcine) (Heparin Sodium (Porcine)) 5,000 units SQ Q8 [facility] Stop: 08/25/19 13:59 Last Admin: 07/27/19 05:00 Dose: 5,000 units Documented by: Promethazine HCl 12.5 mg/ (Sodium Chloride) 50.5 mls @ 202 mls/hr IV Q6H PRN PRN Reason: Nausea And Vomiting Stop: 08/25/19 08:07 Lisinopril (Zestril) 20 mg PO BID [facility] Stop: 08/26/19 06:59 Last Admin: 07/27/19 07:31 Dose: 20 mg Documented by: Metoprolol Succinate (Toprol Xl) 75 mg PO BID [facility] Stop: 08/26/19 04:59 Last Admin: 07/27/19 05:22 Dose: 75 mg Documented by: Miscellaneous (Icu Protocol For Hyperglycemia) 1 ea N/A PRN PRN; Protocol PRN Reason: Hyperglycemia Protocol Stop: 07/28/19 08:07 Pantoprazole Sodium (Protonix) 40 mg PO BID [facility] Stop: 08/26/19 05:14 Last Admin: 07/27/19 05:25 Dose: 40 mg Documented by: Potassium Chloride (Klor-Con M20) 20 meq PO QAM [facility] Stop: 08/26/19 08:59 Last Admin: 07/27/19 09:01 Dose: 20 meq Documented by: Tramadol HCl (Ultram) 25 mg PO Q4H PRN PRN Reason: Pain Stop: 08/25/19 08:07
--- NOTE | 2019-07-27 11:59 | Hospitalist Progress Note ---
Date of Service July 27, 2019 Assessment & Plan (1) Hypertensive crisis: Hypertensive Crisis CT head:No acute intracranial abnormality. Patchy white matter hypodensity is nonspecific but suggestive of mild microvascular ischemic change. BP improved with medications: IV hydralazine, labetalol Asymptomatic currently H/O labile hypertension as per records Continue metoprolol, lisinopril Added amlodipine 5 mg daily Also on Lasix 40 mg daily Appreciate cardiology/critical care input Blood pressure better Needs FU with Cardiology upon discharge Troponin elevation Likely demand ischemia secondary to uncontrolled hypertension, renal insufficiency Also noted chronic troponin elevation Denies any chest pain, shortness of breath Appreciate cardiology input No additional cardiac work-up planned for now Chronic systolic heart failure H/O Ischemic cardiomyopathy S/P ICD, Stent CXR: Negative chest. 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 GERD Started on PPI DVT Px: Heparin SQ Code Status Full code Disposition: Plan to discharge home today Subjective Patient is seen and examined at bedside No complaints BP is better Denies any chest pain, SOB, dizziness, nausea, abdominal pain, Headache, change in vision Family at bedside Offers no other complaints Eager to get discharged Review of Systems Review of Systems: All systems reviewed & are unremarkable except as noted in HPI & below Physical Exam Physical Exam: Physical Exam: Vitals signs as noted above General Appearance:Moderately built and nourished, no apparent distress Head: normocephalic, Atraumatic Eyes: normal inspection, EOMI Neck: supple, Trachea midline Respiratory/Chest: Normal breath sounds, CTA,+Pacemaker Cardiovascular: S1, S2, No murmur Abdomen/GI:Soft, Non tender, Bowel sounds present Extremities/Musculoskelatal:normal inspection, Trace edema Neurologic/Psych:AAOX3, grossly no focal neurological deficits Skin: normal color, warm Results & Data Vital Signs (Past 12 Hours) Vital Signs Temp Pulse Pulse Resp BP BP Pulse Ox 07/27/19 11:00 36.8 C 18 141/92 H 97 07/27/19 07:20 93 H 103/83 07/27/19 07:00 84 07/27/19 06:45 184/116 H 190/114 H 07/27/19 06:37 36.7 C 86 21 204/141 H 192/102 H 98 07/27/19 04:58 175/118 H 07/27/19 04:00 37.3 C 92 H 21 169/101 H 95 07/27/19 00:15 177/99 H Laboratory Results Short CBC 07/27/19 Range/Units 05:33 WBC 9.65 (4.8-10.8) K/uL Hgb 14.6 (12.0-16.0) g/dL Hct 42.2 (37-47) % Plt Count 176 (130-400) K/uL BMP 07/27/19 05:33 Sodium 139 Potassium 4.1 Chloride 105 Carbon Dioxide 24 BUN 21 H Creatinine 1.48 H Glucose 123 H Calcium 9.3 Cardiac Enzymes 07/26/19 Range/Units 11:49 Troponin I 0.412 H* (0-0.045) ng/ml
--- NOTE | 2019-07-27 12:11 | Discharge Summary ---
Date of Service July 27, 2019 Admission HPI Per Admitting Provider History obtained from patient, family, and records. Medical history significant for chronic systolic heart failure EF 34%, TTE 2018) secondary to nonischemic cardiomyopathy status post ICD, CAD status post stent, history of left bundle branch block, hypertension, hyperlipidemia, CRI (baseline creatinine 1.3-1.7). Recent confinement September 2018 under Cardiology service for elective biventricular ICD placement for nonischemic cardiomyopathy. Device rogation during outpatient Cardiology service November 2018 revealed frequent PVCs causing decline in biventricular pacing. Patient's carvedilol was changed to metoprolol as per records. On recent outpatient [facility] [place] 2 weeks ago, patient's metoprolol increased from 25 to 50 mg twice daily. ICD interrogation contemplated 3 weeks later. Patient noticed acid reflux symptoms following increase beta-juan carlos dose. Some relief with OTC Prilosec intake. SBP at home 1 20-1 30s as per patient. This a.m., patient woke up from sleep diaphoretic and with epigastric acid reflux discomfort causing her to be nauseous and to vomit. Patient denies actual chest pain, S OB, headache symptoms. SBP noted to be 200s which is unusual for her. Patient compliant with home medications, denies unusual stress, NSAID intake, dietary indiscretion. At the ER, SBP noted to be 220s. IV Labetalol given at the ER. BP currently 200/110. 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 Admission Exam Per Admitting Provider GENERAL: Slightly anxious , obese, no respiratory distress SKIN: Normal color, warm HEENT: Bespectacled, pink palpebral conjunctivae, no ptosis, dry buccal mucosa NECK : Supple, short neck, no tenderness CHEST : CTA, no tenderness HEART : RRR, systolic murmur ABDOMEN: Some distention, nontender EXTREMITIES : No LE swelling/tenderness, no other conspicuous deformities noted NEUROLOGIC : Coherent, no facial asymmetry, no other gross focality Principal Diagnosis Hypertensive crisis Discharge Data Allergies Allergy/AdvReac Type Severity Reaction Status Date / Time No Known Allergies Allergy Unknown Verified 07/26/19 03:38 Consultations 07/26/19 07:04 Consult Skiff Operator Routine 07/26/19 08:08 Consult Cardiology Routine Procedures Performed CT head: CT head:No acute intracranial abnormality. Patchy white matter hypodensity is nonspecific but suggestive of mild microvascular ischemic change. CT ABD: No acute process. CXR: Negative chest. Ordered Studies 07/26/19 03:35 CT head/brain wo con Urgent 07/26/19 06:39 CT abd pelvis wo con Urgent Hospital Course (1) Hypertensive crisis: Hypertensive Crisis CT head:No acute intracranial abnormality. Patchy white matter hypodensity is nonspecific but suggestive of mild microvascular ischemic change. BP improved with medications: IV hydralazine, labetalol Asymptomatic currently H/O labile hypertension as per records Continue metoprolol, lisinopril Added amlodipine 5 mg daily Also on Lasix 40 mg daily Appreciate cardiology/critical care input Blood pressure better Needs FU with Cardiology upon discharge Troponin elevation Likely demand ischemia secondary to uncontrolled hypertension, renal insufficiency Also noted chronic troponin elevation Denies any chest pain, shortness of breath Appreciate cardiology input No additional cardiac work-up planned for now Chronic systolic heart failure H/O Ischemic cardiomyopathy S/P ICD, Stent CXR: Negative chest. 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 GERD Started on PPI DVT Px: Heparin SQ Code Status Full code Disposition: Plan to discharge home today Total Time Total Time Spent Total Time Spent (In Minutes): 34 minutes Total Time Includes: Examination of the Patient, Discharge Planning, Medication Reconciliation, Communication With Other Providers and Other Discharge Plan Discharge Items Patient Disposition: Home - Self-Care Reason For Visit: HTN CRISIS Discharge Diagnosis: Hypertensive crisis Activity: Resume your previous activity Exercise/Sports: Gradually increase as tolerated Non-emergency contact: Primary Care Provider and Electronic Publishing Specialist Call non-emergency contact if: you have any medication questions, your symptoms worsen, your pain is not controlled, your pain is worsening, your pain is unusual for you and your pain is concerning for you Follow-up/Referrals: Rani Uriarte MD [Primary Care Provider] - Diet: Heart Healthy Addtl Attending Provider Instructions: Follow-up with your primary care physician Dr. Rani Uriarte on August 03, 2019 at 11:20 AM Follow-up with your strategic sourcing consultant on July 30, 2019 at 10:30 AM Follow-up for pacemaker check on August 02, 2019 as scheduled Seek immediate medical attention if your symptoms reoccur or worsen Medication Changes: Your metoprolol has been increased from 50 mg twice daily to 75 mg twice daily Your your added on amlodipine 5 mg daily for better blood pressure control You are also started on pantoprazole 40 mg daily for heartburn Pending Studies at Discharge: No Stand-Alone Forms: My [facility] Medications and DC Order Prescriptions: New metoprolol succinate 50 mg Tablet Extended Release 24 Hr 75 mg PO BID 30 Days Qty: 90 RF: 0 amlodipine [Norvasc] 5 mg Tablet 5 mg PO QAM 30 Days Qty: 30 RF: 0 pantoprazole 40 mg Tablet,Delayed Release (Dr/Ec) 40 mg PO QAM 30 Days Qty: 30 RF: 0 Continued furosemide 40 mg Tablet 40 mg PO QAM RF: 0 atorvastatin [Lipitor] 40 mg Tablet 40 mg PO DAILY RF: 0 lisinopril 20 mg Tablet 20 mg PO BID RF: 0 clopidogrel 75 mg Tablet 75 mg PO QAM RF: 0 potassium chloride 20 mEq Tablet Extended Release 20 meq PO QAM RF: 0 aspirin [Aspirin Low Dose] 81 mg Tablet,Delayed Release (Dr/Ec) 81 mg PO DAILY RF: 0 metformin 500 mg Tablet 500 mg PO BID RF: 0 ezetimibe [Zetia] 10 mg Tablet 10 mg PO DAILY RF: 0 Discontinued metoprolol succinate 50 mg Tablet Extended Release 24 Hr 50 mg PO BID RF: 0 Discharge Orders: Discharge Order (Routine); Ordered 07/27/19 Ordered By: Jarocho Armenta Admission Data Admit Date/Time: 07/26/19 07:04 Attending Provider: Jarocho Armenta Admit Provider: Maxwell Jeong Primary Care Provider: Rani Uriarte Other Providers: Ga Woodward ; Ran Palma Other Interventions: Discharge Summary Assessment (RN) Last Done: 07/27/19 12:30 DC Date/Time DO NOT enter until pt leaves facility: 07/27/19 13:10
--- NOTE | 2019-07-28 07:21 | Emergency Department Note ---
Entered by Sharri Dunaway acting as a scribe for Rhea Gusman DO History of Present Illness General Chief complaint: Hypertension Stated complaint: HIGH BP Time Seen by Provider: 07/26/19 03:17 Source: patient History of Present Illness Onset (ago): hour(s) (13) Location: head (general) Severity: similar to prior episodes Pain Consistency: + other (worsening) Quality: + other (high blood pressure) Relieved By: not by medication (metoprolol) Associated symptoms: + other (negative dizziness; negative lightheadedness; negative blurry vision); no chest pain, no headaches and no shortness of breath The patient is a 53 year old female with a PMHx of CAD, Diabetes, HTN, and CHF who presents to the Emergency Room with complaints of worsening high blood pressure that began about 13 hours prior to arrival. The patient states that she checked her blood pressure at this time and states that this was high so she took her medication. She states that she later went to bed and woke up just prior to arrival in a cold sweat and vomited once. The patient states that at this time she checked her pressure and it was in the 200s/100s. She denies headache, dizziness, lightheadedness, blurry vision, chest pain, and shortness of breath. The patient states that she has a history of hypertension, but states that this has been controlled by medication. She reports that this is similar to a prior episode of high blood pressure, but states that she had stents and a pacemaker placed at the time of this prior episode. The patient no recent changes in diet or activity. She states that she was put on Metoprolol about one month ago. Denies missing any doses or any other med changes. The patient reports no more increased stress than baseline. Home Medications Home Medications Medication Instructions Recorded Confirmed Type atorvastatin [Lipitor] 40 mg PO DAILY 09/21/18 07/26/19 History clopidogrel 75 mg PO QAM 09/21/18 07/26/19 History furosemide 40 mg PO QAM 09/21/18 07/26/19 History lisinopril 20 mg PO BID 09/21/18 07/26/19 History potassium chloride 20 meq PO QAM 09/21/18 07/26/19 History aspirin [Aspirin Low Dose] 81 mg PO DAILY 09/23/18 07/26/19 History ezetimibe [Zetia] 10 mg PO DAILY 07/26/19 07/26/19 History metformin 500 mg PO BID 07/26/19 07/26/19 History amlodipine [Norvasc] 5 mg PO QAM 30 Days #30 tab 07/27/19 Rx metoprolol succinate 75 mg PO BID 30 Days #90 tab 07/27/19 Rx pantoprazole 40 mg PO QAM 30 Days #30 tab 07/27/19 Rx Allergies Allergy/AdvReac Type Severity Reaction Status Date / Time No Known Allergies Allergy Unknown Verified 07/26/19 03:38 Past Med/Surg History Medical History Congestive heart failure follows w/ dr. cavanaugh Diabetes mellitus, type 2 NIDDM Hyperlipidemia Hypertension Myocardial Infarction 3 months ago - [facility] - cardiac cath - 1 stent placed Sleep apnea no cpap Surgical History History of cardiac cath 3 months ago - [facility] - [place] - 1 stent placed - follows w/ dr gray History of section X2 History of heart artery stent x1 History of tooth extraction Family History Grandfather Family history of diabetes mellitus Social History Preferred Language: Barbadian Communication Ability: Effective Band Shover Required: No Beliefs That Will Affect Care: None Current Living Situation: Spouse Other Information That Helps Us Care for You: No Feels Safe at Home: Yes Safety Concerns: Feels Safe At This Time Smoking Status: Never smoker Do You Dip or Chew Tobacco: No ; Second Hand Exposure: No ; Tobacco Cessation Education Requested by Patient: No Hx Alcohol Use: No Hx Substance Use: No Review of Systems See HPI for pertinent positives & negatives. and A total of 10 systems reviewed and were otherwise negative Physical Exam Vital Signs Vital Signs - 24 hr 07/26/19 03:12 07/26/19 03:22 07/26/19 03:25 Temperature 98.2 F Temperature Source Oral Sepsis Recent Fever Within 48 Hours No Sepsis Action Taken by Nursing No Action Required Pulse Rate 91 H 87 85 Pulse Rate from SpO2 Sensor 87 88 Respiratory Rate 18 20 18 Respiratory Effort / Characteristics Non-Labored Spontaneous Respiratory Depth Normal Respiratory Pattern Regular Blood Pressure 249/153 H 247/149 H Blood Pressure Mean 185 181 Blood Pressure Position Sitting Pulse Oximetry 98 96 96 Oxygen Delivery Method Room Air 07/26/19 03:30 07/26/19 03:40 07/26/19 03:45 Temperature Temperature Source Sepsis Recent Fever Within 48 Hours Sepsis Action Taken by Nursing Pulse Rate 88 82 80 Pulse Rate from SpO2 Sensor 88 Respiratory Rate 21 19 22 Respiratory Effort / Characteristics Respiratory Depth Respiratory Pattern Blood Pressure 239/152 H 191/124 H Blood Pressure Mean 181 146 Blood Pressure Position Pulse Oximetry 95 Oxygen Delivery Method 07/26/19 03:56 07/26/19 03:57 07/26/19 04:17 Temperature Temperature Source Sepsis Recent Fever Within 48 Hours Sepsis Action Taken by Nursing Pulse Rate 79 Pulse Rate from SpO2 Sensor 77 83 79 Respiratory Rate 14 Respiratory Effort / Characteristics Respiratory Depth Respiratory Pattern Blood Pressure 222/151 H 222/129 H Blood Pressure Mean 174 160 Blood Pressure Position Pulse Oximetry 94 90 94 Oxygen Delivery Method 07/26/19 04:45 07/26/19 04:50 07/26/19 04:51 Temperature Temperature Source Sepsis Recent Fever Within 48 Hours Sepsis Action Taken by Nursing Pulse Rate 82 80 81 Pulse Rate from SpO2 Sensor 79 70 81 Respiratory Rate 19 17 21 Respiratory Effort / Characteristics Respiratory Depth Respiratory Pattern Blood Pressure 218/138 H 206/138 H Blood Pressure Mean 164 160 Blood Pressure Position Pulse Oximetry 96 97 95 Oxygen Delivery Method 07/26/19 04:56 07/26/19 05:00 07/26/19 05:05 Temperature Temperature Source Sepsis Recent Fever Within 48 Hours Sepsis Action Taken by Nursing Pulse Rate 83 78 78 Pulse Rate from SpO2 Sensor 80 88 79 Respiratory Rate 15 20 19 Respiratory Effort / Characteristics Respiratory Depth Respiratory Pattern Blood Pressure 214/121 H 215/119 H 209/128 H Blood Pressure Mean 152 151 155 Blood Pressure Position Pulse Oximetry 94 96 96 Oxygen Delivery Method 07/26/19 05:10 07/26/19 05:11 07/26/19 05:20 Temperature Temperature Source Sepsis Recent Fever Within 48 Hours Sepsis Action Taken by Nursing Pulse Rate 79 77 80 Pulse Rate from SpO2 Sensor 89 80 72 Respiratory Rate 16 19 18 Respiratory Effort / Characteristics Respiratory Depth Respiratory Pattern Blood Pressure 186/139 H 193/126 H Blood Pressure Mean 154 148 Blood Pressure Position Pulse Oximetry 94 95 92 Oxygen Delivery Method 07/26/19 05:30 Temperature Temperature Source Sepsis Recent Fever Within 48 Hours Sepsis Action Taken by Nursing Pulse Rate 77 Pulse Rate from SpO2 Sensor 43 L Respiratory Rate 15 Respiratory Effort / Characteristics Respiratory Depth Respiratory Pattern Blood Pressure Blood Pressure Mean Blood Pressure Position Pulse Oximetry 94 Oxygen Delivery Method GENERAL: alert, anxious appearing, well nourished, no distress, non-toxic. EYE EXAM: normal conjunctiva, PERRL and EOM's grossly intact OROPHARYNX: no exudate, no erythema, lips, buccal mucosa, and tongue normal and mucous membranes are moist NECK: supple, no nuchal rigidity, no adenopathy, non-tender CHEST: Patient with a pacemaker noted in the left anterior superior chest wall. LUNGS: Clear to auscultation, no wheezes, rhonchi, rales. Normal chest wall mechanics HEART: no murmurs, S1 normal and S2 normal ABDOMEN: abdomen soft, non-tender, normo-active bowel sounds, no masses, no rebound or guarding. BACK: Back is symmetrical on inspection and there is no deformity, no midline tenderness, no CVA tenderness. SKIN: no rashes and no bruising UPPER EXTREMITIES: upper extremities are grossly normal. FROM, nml pulses b/l. LOWER EXTREMITIES: No pitting edema. FROM, nml pulses b/l. NEURO EXAM: Normal sensorium, cranial nerves II-XII grossly intact, normal speech, no gross weakness of arms, no gross weakness of legs. No ataxia, no facial droop. Course 0328: Past medical records reviewed. The patient was evaluated in room A2. A complete history and physical exam was performed. 0541: Upon reevaluation, the patient states that she is feeling better. Her blood pressure is still elevated. The patient states that her "heart number" is always elevated. No current symptoms. 0548: I discussed the case with Dr. Paula Estrada who accepts the patient for further evaluation. Consultations Consultation #1: I discussed the case with Dr. Paula Estrada who accepts the patient for further evaluation. Time: 05:48 Administered Medications Discontinued Medications Amlodipine Besylate (Norvasc) 5 mg PO NOW ONE Stop: 07/26/19 12:17 Last Admin: 07/26/19 12:28 Dose: 5 mg Documented by: [id number] Amlodipine Besylate (Norvasc) 5 mg PO [facility] Stop: 08/26/19 05:14 Last Admin: 07/27/19 05:24 Dose: 5 mg Documented by: [id number] Aspirin (Ecotrin Ectab) 81 mg PO DAILY [facility] Stop: 08/25/19 08:59 Last Admin: 07/27/19 08:38 Dose: 81 mg Documented by: [id number] Admin: 07/26/19 08:40 Dose: 81 mg Documented by: [id number] Atorvastatin Calcium (Lipitor) 40 mg PO DAILY [facility] Stop: 08/25/19 08:59 Last Admin: 07/27/19 08:38 Dose: 40 mg Documented by: [id number] Admin: 07/26/19 08:40 Dose: 40 mg Documented by: [id number] Clopidogrel Bisulfate (Plavix) 75 mg PO QAM [facility] Stop: 08/25/19 08:59 Last Admin: 07/27/19 08:38 Dose: 75 mg Documented by: [id number] Admin: 07/26/19 08:40 Dose: 75 mg Documented by: [id number] Ezetimibe (Zetia) 10 mg PO DAILY [facility] Stop: 08/26/19 08:59 Last Admin: 07/27/19 08:37 Dose: 10 mg Documented by: [id number] Famotidine (Pepcid 20mg Iv Push) 20 mg IV ONE STA Stop: 07/26/19 06:52 Last Admin: 07/26/19 07:18 Dose: 20 mg Documented by: [id number] Furosemide (Lasix) 40 mg PO DAILY [facility] Stop: 08/26/19 08:59 Last Admin: 07/27/19 08:38 Dose: 40 mg Documented by: [id number] Heparin Sodium (Porcine) (Heparin Sodium (Porcine)) 5,000 units SQ Q8 [facility] Stop: 08/25/19 13:59 Last Admin: 07/27/19 13:07 Dose: Not Given Documented by: [id number] Admin: 07/27/19 05:00 Dose: 5,000 units Documented by: [id number] Cosigned by: [id number] Admin: 07/26/19 21:01 Dose: 5,000 units Documented by: [id number] Cosigned by: [id number] Admin: 07/26/19 13:30 Dose: 5,000 units Documented by: [id number] Cosigned by: [id number] Hydralazine HCl (Hydralazine Hcl) 2.5 mg IV NOW ONE Stop: 07/26/19 02:42 Last Admin: 07/26/19 07:23 Dose: Not Given Documented by: [id number] Hydralazine HCl (Hydralazine Hcl) 10 mg IV NOW STA Stop: 07/26/19 07:05 Last Admin: 07/26/19 07:18 Dose: 10 mg Documented by: [id number] Hydralazine HCl (Hydralazine Hcl) 5 mg IV NOW ONE Stop: 07/26/19 12:17 Last Admin: 07/26/19 12:25 Dose: 5 mg Documented by: [id number] Hydralazine HCl (Hydralazine Hcl) 5 mg IV NOW ONE Stop: 07/27/19 06:47 Last Admin: 07/27/19 07:30 Dose: Not Given Documented by: [id number] Sodium Chloride (Nss) 500 mls @ 125 mls/hr IV .Q4H [facility] Stop: 08/25/19 03:44 Last Infusion: 07/26/19 06:12 Dose: 0 mls/hr Documented by: [id number] Admin: 07/26/19 03:46 Dose: 125 mls/hr Documented by: [id number] Potassium Chloride/Sodium Chloride (1/2 Nss + 20meq Kcl 1000ml) 20 meq in 1,000 mls @ 40 mls/hr IV .Q24H [facility] Stop: 08/25/19 08:29 Last Infusion: 07/26/19 09:38 Dose: 0 mls/hr Documented by: [id number] Admin: 07/26/19 08:40 Dose: 40 mls/hr Documented by: [id number] Labetalol HCl (Normodyne) 10 mg IV NOW STA Stop: 07/26/19 03:36 Last Admin: 07/26/19 03:46 Dose: 10 mg Documented by: [id number] Cosigned by: [id number] Labetalol HCl (Normodyne) Confirm Administered Dose 10 mg IV .STK-MED ONE Stop: 07/26/19 03:40 Last Admin: 07/26/19 03:47 Dose: Not Given Documented by: [id number] Labetalol HCl (Normodyne) 10 mg IV NOW STA Stop: 07/26/19 04:18 Last Admin: 07/26/19 04:19 Dose: 10 mg Documented by: [id number] Cosigned by: [id number] Labetalol HCl (Normodyne) 10 mg IV NOW STA Stop: 07/26/19 05:42 Last Admin: 07/26/19 05:55 Dose: 10 mg Documented by: [id number] Cosigned by: [id number] Lisinopril (Zestril) 20 mg PO QAM [facility] Stop: 08/25/19 06:39 Last Admin: 07/26/19 06:58 Dose: 20 mg Documented by: [id number] Lisinopril (Zestril) 20 mg PO QPM [facility] Stop: 08/25/19 20:59 Last Admin: 07/26/19 20:15 Dose: 20 mg Documented by: [id number] Lisinopril (Zestril) 20 mg PO BID [facility] Stop: 08/26/19 06:59 Last Admin: 07/27/19 07:31 Dose: 20 mg Documented by: [id number] Metoprolol Succinate (Toprol Xl) 50 mg PO BID [facility] Stop: 08/25/19 05:59 Last Admin: 07/26/19 20:16 Dose: 50 mg Documented by: [id number] Admin: 07/26/19 06:46 Dose: Not Given Documented by: [id number] Metoprolol Succinate (Toprol Xl) Confirm Administered Dose 50 mg .ROUTE .STK-MED [facility] Stop: 07/26/19 06:03 Last Admin: 07/26/19 06:05 Dose: 50 mg Documented by: [id number] Metoprolol Succinate (Toprol Xl) 75 mg PO BID [facility] Stop: 08/26/19 04:59 Last Admin: 07/27/19 05:22 Dose: 75 mg Documented by: [id number] Metoprolol Tartrate (Lopressor) 25 mg PO NOW STA Stop: 07/27/19 00:47 Last Admin: 07/27/19 01:05 Dose: 25 mg Documented by: [id number] Nitroglycerin (Nitro-Bid 2%) 1 inch EXT NOW STA Stop: 07/26/19 04:43 Last Admin: 07/26/19 04:48 Dose: 1 inch Documented by: [id number] Pantoprazole Sodium (Protonix) 40 mg PO DAILY [facility] Stop: 08/25/19 08:59 Last Admin: 07/26/19 08:40 Dose: 40 mg Documented by: [id number] Pantoprazole Sodium (Protonix) 40 mg PO BID [facility] Stop: 10/17/19 05:14 Last Admin: 07/27/19 05:25 Dose: 40 mg Documented by: [id number] Potassium Chloride (Klor-Con M20) 40 meq PO NOW STA Stop: 07/26/19 08:09 Last Admin: 07/26/19 08:42 Dose: 40 meq Documented by: [id number] Potassium Chloride (Klor-Con M20) 20 meq PO QAM [facility] Stop: 08/26/19 08:59 Last Admin: 07/27/19 09:01 Dose: 20 meq Documented by: [id number] Medical Decision Making Differential Diagnosis Differential diagnoses include hypertensive urgency, hypertensive emergency, noncompliance, dietary indiscretion, ACS, occult infection, dissection, intracranial hypertension, CVA, acute kidney failure, and others were considered. Medical Records Attestation: I reviewed the patient's medical records. Home Medications Current Medication List: was personally reviewed by me Laboratory Data Attestation: I reviewed the patient's lab results. Result diagrams: 07/27/19 05:33 07/27/19 05:33 Lab Results 07/26/19 07/26/19 07/26/19 Range/Units 03:26 03:26 03:26 WBC 8.50 (4.8-10.8) K/uL RBC 4.32 (4.2-5.4) M/uL Hgb 14.6 (12.0-16.0) g/dL Hct 41.4 (37-47) % MCV 95.8 (80-100) fL MCH 33.8 (25-34) pg MCHC 35.3 (32-36) g/dL RDW Std Deviation 43.2 (36.4-46.3) fL RDW Coeff of Erick 12.5 (11.5-14.5) % Plt Count 172 (130-400) K/uL MPV 10.5 H (7.4-10.4) fL Immature Gran % (Auto) 0.5 % Neut % (Auto) 50.5 % Lymph % (Auto) 31.6 % [place] % (Auto) 8.5 % Eos % (Auto) 8.5 % Baso % (Auto) 0.4 % Immature Gran # (Auto) 0.04 H (0.00-0.02) K/uL Neut # (Auto) 4.30 (1.4-6.5) K/uL Lymph # (Auto) 2.69 (1.2-3.4) K/uL [place] # (Auto) 0.72 H (0.11-0.59) K/uL Eos # (Auto) 0.72 H (0-0.5) K/uL Baso # (Auto) 0.03 (0-0.2) K/uL APTT 23.4 (21.0-31.0) Seconds PTT Ratio 0.9 Sodium 143 (136-145) mmol/L Potassium 3.7 (3.5-5.1) mmol/L Chloride 108 H (98-107) mmol/L Carbon Dioxide 23 (21-32) mmol/L Anion Gap 12.0 H (3-11) BUN 19 H (7-18) mg/dl Creatinine 1.51 H (0.6-1.2) mg/dl Est Cr Clr Drug Dosing 40.8 ml/min Est GFR ( Amer) 44.9 Est GFR (Non-Af Amer) 38.8 BUN/Creatinine Ratio 12.7 (10-20) Glucose 148 H (70-99) mg/dl Estimat Average Glucose mg/dl Hemoglobin A1c (4.5-5.6) % Calcium 8.9 (8.5-10.1) mg/dl Magnesium 2.1 (1.8-2.4) mg/dl Total Bilirubin 0.4 (0.2-1) mg/dl AST 23 (15-37) U/L ALT 50 (12-78) U/L Alkaline Phosphatase 105 (45-117) U/L Troponin I 0.196 H* (0-0.045) ng/ml Total Protein 7.4 (6.4-8.2) gm/dl Albumin 3.8 (3.4-5.0) gm/dl Globulin 3.6 (2.5-4.0) gm/dl Albumin/Globulin Ratio 1.1 (0.9-2) Lipase (73-393) U/L TSH (0.300-4.500) uIu/ml 07/26/19 07/26/19 07/26/19 Range/Units 03:26 03:26 06:52 WBC (4.8-10.8) K/uL RBC (4.2-5.4) M/uL Hgb (12.0-16.0) g/dL Hct (37-47) % MCV (80-100) fL MCH (25-34) pg MCHC (32-36) g/dL RDW Std Deviation (36.4-46.3) fL RDW Coeff of Erick (11.5-14.5) % Plt Count (130-400) K/uL MPV (7.4-10.4) fL Immature Gran % (Auto) % Neut % (Auto) % Lymph % (Auto) % [place] % (Auto) % Eos % (Auto) % Baso % (Auto) % Immature Gran # (Auto) (0.00-0.02) K/uL Neut # (Auto) (1.4-6.5) K/uL Lymph # (Auto) (1.2-3.4) K/uL [place] # (Auto) (0.11-0.59) K/uL Eos # (Auto) (0-0.5) K/uL Baso # (Auto) (0-0.2) K/uL APTT (21.0-31.0) Seconds PTT Ratio Sodium (136-145) mmol/L Potassium (3.5-5.1) mmol/L Chloride (98-107) mmol/L Carbon Dioxide (21-32) mmol/L Anion Gap (3-11) BUN (7-18) mg/dl Creatinine (0.6-1.2) mg/dl Est Cr Clr Drug Dosing ml/min Est GFR ( Amer) Est GFR (Non-Af Amer) BUN/Creatinine Ratio (10-20) Glucose (70-99) mg/dl Estimat Average Glucose 126 mg/dl Hemoglobin A1c 6.0 H (4.5-5.6) % Calcium (8.5-10.1) mg/dl Magnesium (1.8-2.4) mg/dl Total Bilirubin (0.2-1) mg/dl AST (15-37) U/L ALT (12-78) U/L Alkaline Phosphatase (45-117) U/L Troponin I 0.305 H* (0-0.045) ng/ml Total Protein (6.4-8.2) gm/dl Albumin (3.4-5.0) gm/dl Globulin (2.5-4.0) gm/dl Albumin/Globulin Ratio (0.9-2) Lipase 181 (73-393) U/L TSH 1.550 (0.300-4.500) uIu/ml Imaging Data Attestation: I personally reviewed and interpreted this imaging study as follows: My Impression: 1 VIEW CHEST X-RAY: Pacemaker noted. Mild cardiomegaly. No effusions. No wide mediastinum. No acute pulmonary edema. No focal consolidation. Radiologist's Impression: Radiology results as stated below per my review and the radiologist's interpretation: CT HEAD: No intracranial hemorrhage or acute cortical infarct. Patchynonspecificwhite matter lowattenuation, possible small vessel disease or other etiologies. Radiologist: Minerva Jalloh M.D. Study ready at 03:58 and initial results transmitted at 04:33 ECG Data Attestation: I personally reviewed and interpreted this ECG as follows: Indication: other (hypertension) Rate (beats per minute): 95 Rhythm: other (AV paced) Findings: + other (prolonged intervals) and + left axis deviation; no ST depression, no ST elevation and no acute ischemic change Comparison ECG Date: from (09/23/2018) Change: no significant change Blood Pressure Blood Pressure Findings: Elevated blood pressure Blood Pressure Disposition: further management by hospitalist MDM Narrative Pt here well appearing despite elevated BP. Pt with prior cardiac hx and unclear etiology of currently elevated BP. Trop mildly elevated however pt reports levels always elevated. Only other levels available for comparison seem to have been around the time of her device implantation. No EKG changes and no chest pain or trouble breathing. No sx to suggest dissection. Normal non focal neuro exam. Pt's BP improved with labetalol. Several IV doses given and BP was improved, however given elevated state, cardiac hx, and abnormal trop, case discussed with hospitalist for additional evaluation. Pt was made aware of all results and was in agreement with plan. I do not suspect dissection at this time, ICH/cva, acs, chf. Pt with no sx at this time to suggest ACS, however has significant history. Impression & Plan Elevated troponin, Acute kidney injury, Hypertensive crisis Critical Care Time Critical Care Time: Yes Total Critical Care Time: 40 Critical care of 40 min performed to assess and manage high likelihood of life- threatening cardiovascular pathology, involving labs and imaging performed with assessment to evaluate for hypertensive emergency with frequent reassessment. This time includes bedside time, treatment discussions with patient/family /consultants, documentation time and excludes procedure time. Discharge Plan Visit Data *Final* Discharge Date/Time: 07/26/19 07:33 Chief Complaint: Hypertension Stated Complaint: HIGH BP ED Provider: Rhea Gusman Discharge Problem: Elevated troponin, Acute kidney injury, Hypertensive crisis Patient Disposition: Admitted As Inpatient Discharge Instructions Interventions: ED Discharge Assessment Last Done: 07/26/19 07:33 The scribe's documentation has been prepared under my direction and personally reviewed by me in its entirety. I confirm that the note above accurately reflects all work, treatment, procedures, and medical decision making performed by me.
== END 2019-07-27 13:10 | disposition home or self-care (01) | DRG 305 ==
LOC: ED 03:09 → 1E 07:04 → 2W 14:25